=== PATIENT | male | born 1965 | race Caucasian/White ===

== ENCOUNTER 2020-06-23 15:16 | Emergency (ER) | payer BC, SELFPAY ==
[2020-06-23 15:24] VITALS: BP 112/89; PULSE 96; RESP 16; TEMP 36.4; O2SAT 98
--- NOTE | 2020-06-23 15:36 | ED.URI ---
HPI - URI/Sore Throat General Chief Complaint: Upper Respiratory Infection Stated Complaint: Sore Throat Time Seen by Provider: 06/23/20 15:30 Source: patient Mode of arrival: ambulatory Limitations: no limitations History of Present Illness HPI Narrative: Tono Calderon is a 54 yo male with a PMH of high cholesterol, diabetic, who comes to express care with c/o sore throat that is worsening sore throat x 1-2 days. Thought he saw white pockets on throat to day while at work. Pt is a former smoker, casual drinker. Diabetes runs high but relatively under control, sees pcp regularly Related Data Home Medications Medication Instructions Recorded Confirmed atorvastatin [Lipitor] 20 mg PO DAILY 06/23/20 06/23/20 dapagliflozin [Farxiga] 10 mg PO DAILY 06/23/20 06/23/20 exenatide microspheres [Bydureon] 2 mg SUBCUT WEEKLY 06/23/20 06/23/20 insulin detemir U-100 [Levemir unit SUBCUT 06/23/20 FlexTouch U-100 Insuln] lisinopril [Zestril] 2.5 mg PO DAILY 06/23/20 06/23/20 metformin [Glucophage] 1,000 mg PO BID 06/23/20 06/23/20 Allergies Allergy/AdvReac Type Severity Reaction Status Date / Time just for men Allergy Mild Uncoded 06/23/20 15:32 Review of Systems Review of Systems: Narrative: CONSTITUTIONAL: Denies fever, chills, sweats. EYES: Denies visual changes, redness, discharge. ENT: Denies rhinorrhea, congestion, has sore throat w tonsillar swelling, otalgia. CARDIOVASCULAR: Denies chest pain, palpitations, edema. RESPIRATORY: Denies dyspnea, wheezing, cough GASTROINTESTINAL: Denies abdominal pain, nausea, vomiting, diarrhea. GENITOURINARY: Denies dysuria, hematuria, abnormal discharge SKIN: Denies rash or itching. NEUROLOGIC: Denies numbness, or focal weakness. PSYCHIATRIC: Denies anxiety or depression. [facility] Past Medical History Medical History Diabetes High cholesterol Family History Family History Other Breast cancer Diabetes mellitus Social History Social History (Updated 06/23/20 @ 15:41 by Jessie Anguiano CNP) Smoking status: Former smoker Alcohol intake: former Gender identity (if verbalized by the patient): Male Comments At time of signature, I agree with nursing past medical, surgical, social and family history. There is no relevant family history pertinent to the presenting complaint. Exam Narrative: Exam Narrative: GENERAL: This is a well-nourished, well-developed patient, in mild distress. HEAD: normocephalic, atraumatic. EYES: Sclera clear/white. Vision is grossly intact. EARS: External ears normal. Hearing grossly intact. NOSE: External nose normal without nasal discharge, nares without redness, no rhinorrhea. THROAT: Mucous membranes moist, posterior pharynx erythema with tonsillar swelling, right greater than left NECK: Neck supple, non-tender CARDIOVASCULAR: Regular rate and rhythm without murmurs, gallops, or rubs. RESPIRATORY: Clear to auscultation. Breath sounds equal bilaterally. No wheezes, rales, or rhonchi. GASTROINTESTINAL: Abdomen soft, SKIN: warm, intact with no suspicious lesions or rash, good texture and turgor. NEURO: awake, alert, and oriented to person, place and time. There were no obvious focal neurologic abnormalities. Steady gait EXTREMITIES: Normal range of motion. BACK: Nontender without deformity Course Course Emergency Course: Patient came to express care with complaints of sore throat that is worsening over the last day Strep test negative Started on lower dose steroids x4 days plus viscous lidocaine, Zyrtec. Patient should be aware that steroids will increase blood sugar temporarily Vital Signs Vital signs: Vital Signs Temperature 97.6 F 06/23/20 15:24 Pulse Rate 96 06/23/20 15:24 Respiratory Rate 16 06/23/20 15:24 Blood Pressure 112/89 06/23/20 15:24 Pulse Oximetry 98 06/23/20 15:24 Temperature 97.6 F 11
== END 2020-06-23 15:50 | disposition home or self-care (01) ==
PROVIDERS: Emergency Provider Nurse Practitioner; PCP Internal Medicine
DX: J02.9 Acute pharyngitis, unspecified (principal); Z87.891 Personal history of nicotine dependence; E11.9 Type 2 diabetes mellitus without complications; E78.00 Pure hypercholesterolemia, unspecified
CPT/HCPCS: 87081; 87880; 99213; G0463

== ENCOUNTER 2021-09-21 17:09 | Observation (INO) | payer BC, SELFPAY ==
[2021-09-21] VITALS (19 sets, daily range): BP systolic 107–145; BP diastolic 61–86; PULSE 72–96; RESP 11–23; TEMP 36–37.3; O2SAT 97–99; BMI 36.6; BMI 37.0
--- NOTE | ~2021-09-21 | US_ITS ---
EXAMINATION: US right upper quadrant DATE: 09/22/2021 09:41 INDICATION: Epigastric pain. Elevated lipase. TECHNIQUE: Multiple grayscale and Doppler ultrasound images of the abdomen were obtained. COMPARISON: 04/08/18 FINDINGS: The visualized portion of the head and proximal body of the pancreas are normal. The more distal body and tail are obscured. Liver has normal contour, with a smooth surface. There is increased parenchym al echogenicity and coarsened echotexture consistent with diffuse hepatic steatosis with geographic h ypoechoic region of focal sparing in the posterior left hepatic lobe. No other liver lesion identifie d. No intrahepatic biliary duct dilation suspected. Portal venous flow was seen in the hepatopetal, normal direction and has normal Doppler waveform. Visualized proximal inferior vena cava is normal. V isualized portion of the right kidney demonstrates normal echogenicity and contour with no hydronephr osis. The gallbladder is normal in appearance. There is no cholelithiasis. The common bile duct lisa ures 5 mm, which is normal. Sonographic Melo sign was reported as negative by the retail support manager. IMPRESSION: 1. Diffuse hepatic steatosis with focal sparing along the posterior left hepatic lobe. Reviewed, dictated and finalized at location A. [employer] SAL[employer] SPECIALIST IMPRESSION: 1. Diffuse hepatic steatosis with focal sparing along the posterior left hepati c lobe.
--- NOTE | ~2021-09-21 | XR_ITS ---
EXAMINATION: XR chest 1V portable INDICATION: Chest pain TECHNIQUE: Portable AP chest at 1732 hours COMPARISON: None available FINDINGS: Cardiomegaly is noted. There is a mild diffuse interstitial pattern. No pleural effusion or pneumothorax is identified. IMPRESSION: 1. Cardiomegaly with possible mild pulmonary edema. Reviewed, dictated and finalized at location F. [employer]
--- NOTE | 2021-09-21 17:11 | ECG_ITS ---
Measurements Intervals Maria Stein Rate: 98 P: 52 CA: 140 QRS: -11 QRSD: 102 T: 37 QT: 334 QTc: 427 Interpretive Statements SINUS RHYTHM DELAYED PRECORDIAL R/S TRANSITION BORDERLINE ECG Electronically Signed On 09-21-2021 18:28:26 CLOTHING SUPERVISOR by Garret Westfall D.O.
--- NOTE | 2021-09-21 17:21 | ED.CHESTPAIN ---
HPI - Chest Pain General Chief Complaint: Chest Pain Stated Complaint: Chest Pain with Exertion Time Seen by Provider: 09/21/21 17:11 Related Data Home Medications Medication Instructions Recorded Confirmed atorvastatin [Lipitor] 20 mg PO DAILY 06/23/20 06/23/20 dapagliflozin [Farxiga] 10 mg PO DAILY 06/23/20 06/23/20 exenatide microspheres [Bydureon] 2 mg SUBCUT WEEKLY 06/23/20 06/23/20 insulin detemir U-100 [Levemir unit SUBCUT 06/23/20 FlexTouch U-100 Insuln] lisinopril [Zestril] 2.5 mg PO DAILY 06/23/20 06/23/20 metformin [Glucophage] 1,000 mg PO BID 06/23/20 06/23/20 Allergies Allergy/AdvReac Type Severity Reaction Status Date / Time No Known Allergies Allergy Verified 09/21/21 17:18 [facility] Past Medical History Medical History Diabetes High cholesterol Family History Family History Other Breast cancer Diabetes mellitus Social History Social History (Updated 06/23/20 @ 15:41 by Jessie Anguiano CNP) Smoking status: Former smoker Alcohol intake: former Gender identity (if verbalized by the patient): Male Course Vital Signs Vital signs: Vital Signs Temperature 99.1 F 09/21/21 17:13 Pulse Rate 94 09/21/21 17:13 Respiratory Rate 18 09/21/21 17:13 Blood Pressure 145/86 H 09/21/21 17:13 Pulse Oximetry 98 09/21/21 17:13 Temperature 99.1 F 09/21/21 17:13 Pulse Rate 94 09/21/21 17:13 Respiratory Rate 18 09/21/21 17:13 Blood Pressure 145/86 H 09/21/21 17:13 Pulse Oximetry 98 09/21/21 17:13 MDM - Chest Pain ECG Data EKG #1: Interpretation: Sinus rhythm 98, MA is normal, axis normal, QTC is normal, ST segments normal Discharge Plan Discharge Prescriptions: No Action atorvastatin [Lipitor] 20 mg Tablet 20 mg PO DAILY RF: 0 metformin [Glucophage] 1,000 mg Tablet 1,000 mg PO BID RF: 0 lisinopril [Zestril] 2.5 mg Tablet 2.5 mg PO DAILY RF: 0 Levemir FlexTouch U-100 Insuln 100 unit/mL (3 mL) insulin pen SUBCUT RF: 0 Farxiga 10 mg Tablet 10 mg PO DAILY RF: 0 Bydureon 2 mg/0.65 mL Pen Injector 2 mg SUBCUT WEEKLY RF: 0 prednisone 20 mg tablet 40 mg PO DAILY 5 Days Qty: 10 RF: 0 cetirizine [Zyrtec] 10 mg tablet 10 mg PO DAILY Qty: 30 RF: 0 Lidocaine Viscous 2 % solution 1 applic mucous membrane TID PRN (Reason: pain) Qty: 100 RF: 0
--- NOTE | 2021-09-21 17:29 | ED.CHESTPAIN ---
HPI - Chest Pain General Chief Complaint: Chest Pain Stated Complaint: Chest Pain with Exertion Time Seen by Provider: 09/21/21 17:11 Source: RN notes reviewed History of Present Illness HPI narrative: Patient presents emergency department from home for chest pain. Patient states for the past several months he has been having lower midsternal chest pain that is described as a burning he states that this occurs when he is walking a long distance like to his locker at work and resolves when he rests he states that over the past week it has been occurring almost every time he has been doing any activity and resolves with rest he states today for the first time he had an episode while he was laying down getting ready to go to sleep he denies any fevers or chills shortness of breath abdominal pain nausea or vomiting diarrhea or any other symptoms. Patient states both mother and father with history of bypass surgery Related Data Home Medications Medication Instructions Recorded Confirmed atorvastatin [Lipitor] 20 mg PO DAILY 06/23/20 09/21/21 dapagliflozin [Farxiga] 10 mg PO DAILY 06/23/20 09/21/21 exenatide microspheres [Bydureon] 2 mg SUBCUT WEEKLY 06/23/20 06/23/20 insulin detemir U-100 [Levemir 40 unit SUBCUT DAILY 06/23/20 09/21/21 FlexTouch U-100 Insuln] lisinopril [Zestril] 2.5 mg PO DAILY 06/23/20 09/21/21 metformin [Glucophage] 1,000 mg PO BID 06/23/20 09/21/21 Allergies Allergy/AdvReac Type Severity Reaction Status Date / Time No Known Allergies Allergy Verified 09/21/21 17:18 Review of Systems Review of Systems: Gen.: Denies fevers or chills ENT: Denies congestion Respiratory: Denies shortness of breath or cough CV: See HPI GI: Denies abdominal pain nausea, emesis or diarrhea Musculoskeletal: Denies back pain or muscle pain Neuro: Denies numbness, tingling, weakness or focal weakness Skin: Denies rash Except as documented, all other systems reviewed and negative [facility] Past Medical History Medical History (Updated 09/21/21 @ 18:52 by Silvia Landin APRN) Diabetes High cholesterol Surgical History Surgical History (Updated 09/21/21 @ 18:49 by Silvia Landin APRN) History of appendectomy History of hip replacement, total Right total hip replacement History of shoulder surgery Left shoulder Family History Family History (Updated 09/21/21 @ 18:49 by Silvia Landin APRN) Mother Heart disease, Onset Age: 54 Father Heart disease, Onset Age: 72 Other Breast cancer Diabetes mellitus Social History Social History (Updated 09/21/21 @ 18:50 by Silvia Landin APRN) Smoking packs per day: 1.5 Smoking cigarettes per day: 30.0 Years smoked: 34 Smoking pack-years: 51.00 Smoking status: Former smoker Tobacco type: e-cigarettes/vaping Alcohol intake: former Gender identity (if verbalized by the patient): Male Exam Narrative: APPEARANCE: No acute distress, nontoxic, resting in bed EYES: EOMI HEENT: Normocephalic, atraumatic, OMM RESPIRATORY: No respiratory distress Clear to auscultation bilaterally with no rhonchi wheezing or rales. CARDIOVASCULAR: Regular rate and rhythm without murmurs rubs or gallops. ABDOMINAL: Soft, nontender, nondistended, no rebound or guarding MUSCULOSKELETAl: Moves all extremities. No clubbing, cyanosis or edema. NEURO: Awake and alert. Following commands, speech normal, no focal deficits SKIN:: Warm, dry. No rashes lesions or abrasions PSYCHIATRIC: Normal affect/mood, Course Course Emergency Course: Discussed with Dr. Rodriguez presentation work-up recommends patient receive single dose of Lovenox and NPO after midnight Discussed with SAMMY Vega for Dr. Munoz presentation work-up agrees with admission Discussed with patient and family results of workup and diagnosis. Discussed need for admission. Patient and family understand and agree to current treatment plan Vital Signs Vital signs: Vital Signs
[2021-09-21 17:35] LABS: Basophils Percent Auto 0.7 % (0.2-1.2); Eosinophils Absolute Auto 0.3 K/mm3 (0-0.3); Eosinophils Percent Auto 4.9 % (0-4.4); Hematocrit 47.2 % (42.0-52.0); Hemoglobin 15.6 g/dL (14.0-18.0); Immature Granulocyte Absolute 0.02 K/mm3 (0.00-0.031); Immature Granulocyte Percent A 0.3 % (0-0.5); Lymphocytes Absolute Auto 1.88 K/mm3 (0.9-3.2); Mean Corpuscular HGB Conc 33.1 g/dl (32-36); Mean Corpuscular Hemoglobin 27.2 pg (26-34); Mean Corpuscular Volume 82.4 fl (80-100); Mean Platelet Volume 9.2 fl (7.4-10.4); Monocytes Absolute Auto 0.6 K/mm3 (0.1-0.6); Monocytes Percent Auto 9.7 % (2.6-8.5); Neutrophils Absolute Auto 3.2 K/mm3 (1.3-6.7); Neutrophils Percent Auto 53.4 % (45.5-73.1); Platelet Count Result 215 k/mm3 (150-375); Red Blood Count 5.73 M/mm3 (4.6-6.20); Red Cell Distribution Width 14.9 % (11.5-14.5); White Blood Count 6.1 K/mm3 (4.5-10.0)
[2021-09-21 17:41] LABS: INR 0.9; Prothrombin Time 11.7 Seconds (11.1-14.7)
[2021-09-21 17:42] LABS: Partial Thromboplastin Time 29.2 SECONDS (22.3-36.8)
[2021-09-21 17:49] LABS: Alanine Aminotransferase 40 U/L (4-50); Albumin Level 4.4 g/dL (3.5-5.1); Alkaline Phosphatase 59 U/L (38-126); Anion Gap 8 mmol/L (8-16); Aspartate Amino Transferase 30 U/L (17-59); Bilirubin,Total 0.5 mg/dL (0.2-1.3); Blood Urea Nitrogen 20 mg/dL (9-20); Calcium 9.7 mg/dL (8.4-10.2); Carbon Dioxide 25 mmol/L (22-30); Chloride 103 mmol/L (98-107); Estimated CRCL calculation 127 ml/min; Estimated Glomerular Filt Rate > 60; Glucose 224 mg/dL (65-110); Lipase 480 U/L (23-300); Potassium 4.2 mmol/L (3.4-5.0); Sodium 136 mmol/L (137-145)
[2021-09-21] MEDS: ASPIRIN 81 MG CHEWABLE TABLET 324 MG PO (17:56)
[2021-09-21 18:00] LABS: Troponin I < 0.012 ng/mL (0.000-0.034)
--- NOTE | 2021-09-21 18:38 | PM.IMHP ---
H&P: HPI History of Present Illness Date/Time: Patient was placed observation status for expected length of stay less than 23 hours for management, will plan to re-evaluate tomorrow for improvement. 09/21/21 18:38 Chief Complaint: Chest pain Narrative: Mr. Calderon is a 56-year-old gentleman who presented emergency room with complaints of chest discomfort. Patient has a known history of diabetes mellitus, dyslipidemia, and tobacco abuse. Patient states he does not have a history of hypertension. Patient states over the last few months he has been having a burning sensation in his chest that happens when he is walking quite a bit. Patient denies any associated shortness of breath, nausea, vomiting, or palpitations. Patient states the pain is close to his epigastric area and does not radiate anywhere when he does have it. Patient states he decided come to emergency room because the pain started happening more often today it happened while he was resting. Patient states that at times he feels like drinking water may have helped, and that eating made the pain worse. Patient states that his blood glucose levels have been fairly well controlled and that he is on multiple medications for his diabetes mellitus. Patient states he has been on a statin for many years. At this point time patient is chest pain-free. Review of Systems Review of Systems: A 12 point review of systems was completed with patient all pertinent positive and negative per HPI the remainder are unremarkable. [facility] Past Medical History Medical History (Updated 09/21/21 @ 18:52 by Silvia Landin APRN) Diabetes High cholesterol Surgical History Surgical History (Updated 09/21/21 @ 18:49 by Silvia Landin APRN) History of appendectomy History of hip replacement, total Right total hip replacement History of shoulder surgery Left shoulder Family History Family History (Updated 09/21/21 @ 18:49 by Silvia Landin APRN) Mother Heart disease, Onset Age: 54 Father Heart disease, Onset Age: 72 Other Breast cancer Diabetes mellitus Social History Social History (Updated 09/21/21 @ 18:50 by Silvia Landin APRN) Smoking packs per day: 1.5 Smoking cigarettes per day: 30.0 Years smoked: 34 Smoking pack-years: 51.00 Smoking status: Former smoker Tobacco type: e-cigarettes/vaping Alcohol intake: former Gender identity (if verbalized by the patient): Male Meds Home Medications and Allergies Home Medications Medication Instructions Recorded Confirmed Type atorvastatin [Lipitor] 20 mg PO DAILY 06/23/20 09/21/21 History dapagliflozin [Farxiga] 10 mg PO DAILY 06/23/20 09/21/21 History exenatide microspheres [Bydureon] 2 mg SUBCUT WEEKLY 06/23/20 06/23/20 History insulin detemir U-100 [Levemir 40 unit SUBCUT DAILY 06/23/20 09/21/21 History FlexTouch U-100 Insuln] lisinopril [Zestril] 2.5 mg PO DAILY 06/23/20 09/21/21 History metformin [Glucophage] 1,000 mg PO BID 06/23/20 09/21/21 History Allergies Allergy/AdvReac Type Severity Reaction Status Date / Time No Known Allergies Allergy Verified 09/21/21 17:18 Vital Signs Vital Signs - 24 hr 09/21/21 17:13 09/21/21 18:03 09/21/21 18:06 Temperature 37.3 C Pulse Rate 94 92 92 Respiratory Rate 18 18 Blood Pressure 145/86 H 113/74 Pulse Oximetry 98 99 Exam Narrative: Constitutional: Patient is well-nourished in no acute distress HEENT: Moist mucous membranes. No scleral icterus. No lymphadenopathy. Neck: No carotid bruits noted no JVD noted Lungs: Lung sounds are clear to auscultation bilaterally. No accessory muscle use. No rhonchi, rales, or wheezes noted. Cardiovascular: Apical pulse is regular rate and rhythm. S1-S2 noted, no S3 or S4 noted. No gallops, murmurs, or rubs noted. Abdomen: Soft, round, and nontender. No palpable masses. Extremities: No edema. Nontender. Skin: No rashes or lesions. Warm a
[2021-09-21 19:13] LABS: Hemoglobin A1C 7.5 % (<5.7)
[2021-09-21] MEDS: ENOXAPARIN 120 MG/0.8 ML SYRINGE 115 MG SUB-Q (19:19)
[2021-09-21 19:30] LABS: NT Pro B Type Natriuretic Pept 24 pg/mL (5-100)
--- NOTE | 2021-09-21 20:49 | ADMGEN ---
This patient, Tono Calderon Maryse, was admitted to IMU Room 212-01 at 2030. Patient/family oriented to hospital policies and general routines including ID bracelet, bed and alarms, visiting hours, pain management, procedures, bathroom and other care routines, personal items, smoking policy, room service/diet, and visiting hours. Information on how to activate the Rapid Response Team has been discussed. Patient/Family are encouraged to report perceived risks to care and to ask questions if they do not understand what they are told or what they should do.
[2021-09-21 20:53] LABS: Glucose Point of Care 259 mg/dl (65-105)
[2021-09-21 21:13] LABS: Troponin I < 0.012 ng/mL (0.000-0.034)
[2021-09-21 23:29] LABS: Troponin I < 0.012 ng/mL (0.000-0.034)
[2021-09-22] VITALS (20 sets, daily range): BP systolic 107–129; BP diastolic 64–87; PULSE 70–93; RESP 11–18; TEMP 36.2–36.6; O2SAT 95–99
[2021-09-22 04:36] LABS: Basophils Percent Auto 0.5 % (0.2-1.2); Eosinophils Absolute Auto 0.3 K/mm3 (0-0.3); Eosinophils Percent Auto 5.8 % (0-4.4); Hematocrit 45.4 % (42.0-52.0); Hemoglobin 14.8 g/dL (14.0-18.0); Immature Granulocyte Absolute 0.01 K/mm3 (0.00-0.031); Immature Granulocyte Percent A 0.2 % (0-0.5); Lymphocytes Absolute Auto 1.82 K/mm3 (0.9-3.2); Lymphocytes Percent Auto 32.7 % (18.3-44.2); Mean Corpuscular HGB Conc 32.6 g/dl (32-36); Mean Corpuscular Volume 82.7 fl (80-100); Mean Platelet Volume 9.3 fl (7.4-10.4); Monocytes Absolute Auto 0.6 K/mm3 (0.1-0.6); Monocytes Percent Auto 10.4 % (2.6-8.5); Neutrophils Absolute Auto 2.8 K/mm3 (1.3-6.7); Neutrophils Percent Auto 50.4 % (45.5-73.1); Platelet Count Result 197 k/mm3 (150-375); Red Blood Count 5.49 M/mm3 (4.6-6.20); Red Cell Distribution Width 15.1 % (11.5-14.5); White Blood Count 5.6 K/mm3 (4.5-10.0)
[2021-09-22 04:57] LABS: Carbon Dioxide 24 mmol/L (22-30); Chloride 106 mmol/L (98-107); Potassium 4.6 mmol/L (3.4-5.0); Sodium 135 mmol/L (137-145)
[2021-09-22 04:58] LABS: Alanine Aminotransferase 36 U/L (4-50); Albumin Level 3.8 g/dL (3.5-5.1); Alkaline Phosphatase 52 U/L (38-126); Anion Gap 5 mmol/L (8-16); Aspartate Amino Transferase 29 U/L (17-59); Bilirubin,Total 0.5 mg/dL (0.2-1.3); Blood Urea Nitrogen 18 mg/dL (9-20); Calcium 8.8 mg/dL (8.4-10.2); Estimated CRCL calculation 148 ml/min; Estimated Glomerular Filt Rate > 60; Glucose 153 mg/dL (65-110)
[2021-09-22 08:37] LABS: Lipase 311 U/L (23-300)
[2021-09-22] MEDS: ATORVASTATIN 20 MG TABLET PO (08:42)
[2021-09-22] MEDS: EMPAGLIFLOZIN 25 MG TABLET PO (08:42)
[2021-09-22] MEDS: lisinopriL 2.5 MG TABLET PO (08:42)
[2021-09-22] MEDS: ENOXAPARIN 40 MG/0.4 ML SYRINGE SUB-Q (08:42)
[2021-09-22 08:49] LABS: Glucose Point of Care 166 mg/dl (65-105)
--- NOTE | 2021-09-22 10:05 | PM.CNCAR ---
Assessment and Plan Additional Plan 56-year-old gentleman with diabetes dyslipidemia and previous smoking. He has a 2-3 month history of typical exertional anginal symptoms. Given this I am going to recommend proceeding directly with cardiac catheterization. He understands this and is agreeable. Will proceed with this this afternoon. Anoop Jackson MD [facility] History of Present Illness History of Present Illness Consult date/time: 09/22/21 10:05 Consult reason: chest pain Reason For Visit: Chest Pain Narrative: This is a 56-year-old patient I am seeing at the request of the hospitalist this morning because of a history of chest pain concerning regarding coronary artery disease. The patient is not known to have any cardiac problems prior to this. He says that he has been experiencing symptoms of chest discomfort for about 2-3 months. The symptoms initially were fairly mild and have worsened in the last 2 weeks or so in the sense they are occurring more frequently and appeared to be more intense when they do occur. He is reporting a sense of her substernal chest burning that occurs when he walks a distance. He started to notice this primarily with walking from his parking lot into his place of employment where he works at a [employer]. He states that this walk is about quarter of a mi or so. In recent weeks couple of weeks it is occurring with shorter distances and the burning discomfort tends to be more severe. Within a couple of minutes of rest it tends to resolve he does not have any other symptoms such as shortness of breath diaphoresis nausea or vomiting. This symptom of burning does not radiate to any other location in the body. Because it became more problematic this week he finally came to the emergency room last evening where he was evaluated and admitted. His electrocardiogram looks benign. His troponin levels are negative. He was hospitalized given some aspirin and a dose of Lovenox last night and went seeing him in consultation this morning. He does have a history of non insulin-dependent diabetes for about 15 years and also history of dyslipidemia which is being managed by his PCP. He is a previous smoker having smoked cigarettes until about 2013 and quit at that time. He has done vaping intermittently since then. Review of Systems Constitutional: Constitutional: Reports no additional constitutional complaints Eyes: Eyes: Reports no additional eye complaints ENT: Reports system reviewed and no additional complaints, except as documented Cardiovascular: Cardiovascular: Reports as per HPI Respiratory: Respiratory: Reports no additional respiratory complaints Gastrointestinal: Gastrointestinal: Reports no additional gastrointestinal complaints Musculoskeletal: Musculoskeletal: Reports no additional musculoskeletal complaints Integumentary/Breasts: Skin/Breast: Reports system reviewed and no additional complaints, except as docu Neurologic: Reports system reviewed and no additional complaints, except as documented Endocrine: Endocrine: Reports no additional endocrine complaints Hematologic/Lymphatic: Hematologic/Lymphatic: Reports no additional hematologic/lymphatic complaints Allergic/Immunologic: Allergic/Immunologic: Reports no additional allergic/immunologic complaints [facility] Past Medical History Medical History (Updated 09/21/21 @ 18:52 by Silvia Landin APRN) Diabetes High cholesterol Surgical History Surgical History (Updated 09/21/21 @ 18:49 by Silvia Landin APRN) History of appendectomy History of hip replacement, total Right total hip replacement History of shoulder surgery Left shoulder Family History Family History (Updated 09/21/21 @ 18:49 by Silvia Landin APRN) Mother Heart disease, Onset Age: 54 Father Heart disease, Onset Age: 72 Other Breast cancer Diabetes mellitus Social History Social History (Updated 09/21/21 @ 18
--- NOTE | 2021-09-22 10:35 | PM.IMPN ---
Progress Note: A&P Assessment and Plan (1) Chest pain: Code(s): R07.9 - Chest pain, unspecified Status: Acute Assessment and Plan: Patient with complaints of chest pain. Trop negative x 3. EKG shows mild delayed R wave progression. Cardiology was consulted and options discussed. Patient has risk factors of HLD, DM, family hx and hx of tobacco use (quit in 2013 but he is vaping now). Plan for hear catheterization for later today. Continue ASA. Appreciate Cardiology input. (2) Diabetes: Code(s): E11.9 - Type 2 diabetes mellitus without complications Status: Chronic Assessment and Plan: A1c 7.5. The patient's blood glucose was reviewed on 09/22/21 Glucose elevated at times. Continue AccuCheks covering with sliding scale. Hypoglycemia protocol available as needed. Continue current medications. (3) High cholesterol: Code(s): E78.00 - Pure hypercholesterolemia, unspecified Status: Acute Assessment and Plan: LFTs normal. Lipase slightly elevated on admission but better today. Check lipid panel. Continue Lipitor. (4) Hepatic steatosis: Code(s): K76.0 - Fatty (change of) liver, not elsewhere classified Status: Acute Assessment and Plan: Right UQ showing diffuse hepatic steatosis with focal sparing along the posterior left hepatic lobe. GB appears normal. healthy lifestyle choices discussed. (5) DVT prophylaxis: Code(s): Z29.9 - Encounter for prophylactic measures, unspecified Status: Acute Assessment and Plan: Lovenox (on hold) Subjective Date/time seen: 09/22/21 10:35 Interval history: 56yo male with DM, HLD and hx of tobacco use here for chest pain. No further chest pain. He feels better today. hx reviewed. He described the pain as burning. Feels comfortable proceeding to [facility] today. Exam Narrative: AF 97.5 129/75 75 18 99% ra Constitutional: NARD Lungs: CTA bilaterally, nml RR CV: RRR S1/S2. Tele showing no alarms Abd: Soft, NT/ND, +BS Ext: No edema. 2+ PT bilaterally Skin: Warm and dry. Neuro: No focal neurological deficits Psych: normal mood and affect. Objective Data Vital Signs Vital Signs: Vital Signs - 24 hr 09/21/21 17:13 09/21/21 17:34 09/21/21 17:45 Temperature 99.1 F Pulse Rate 94 96 95 Respiratory Rate 18 16 13 Blood Pressure 145/86 H Pulse Oximetry 98 97 97 09/21/21 17:46 09/21/21 18:00 09/21/21 18:01 Temperature Pulse Rate 93 93 93 Respiratory Rate 18 12 13 Blood Pressure 118/73 113/74 Pulse Oximetry 09/21/21 18:03 09/21/21 18:06 09/21/21 18:18 Temperature Pulse Rate 92 92 Respiratory Rate 18 13 Blood Pressure 113/74 Pulse Oximetry 99 09/21/21 18:30 09/21/21 18:45 09/21/21 19:00 Temperature Pulse Rate Respiratory Rate 11 L 11 L 17 Blood Pressure Pulse Oximetry 09/21/21 19:30 09/21/21 19:45 09/21/21 20:00 Temperature Pulse Rate 86 93 84 Respiratory Rate 19 18 23 H Blood Pressure Pulse Oximetry 09/21/21 20:15 09/21/21 20:20 09/21/21 22:00 Temperature 96.8 F L Pulse Rate 86 89 80 Respiratory Rate 12 16 Blood Pressure 127/69 Pulse Oximetry 98 09/21/21 23:43 09/22/21 00:00 09/22/21 02:00 Temperature 97.3 F L Pulse Rate 72 81 76 Respiratory Rate 15 Blood Pressure 107/61 Pulse Oximetry 97 09/22/21 04:00 09/22/21 06:00 09/22/21 08:00 Temperature 97.8 F 97.5 F L Pulse Rate 93 75 76 Respiratory Rate 15 18 Blood Pressure 112/68 129/75 Pulse Oximetry 96 99 09/22/21 10:00 Temperature Pulse Rate 75 Respiratory Rate Blood Pressure Pulse Oximetry Intake/Output Intake/Output: Intake & Output 09/19/21 09/20/21 09/21/21 09/22/21 23:59 23:59 23:59 23:59 Intake Total 300 Output Total 725 Balance -425 Meds/Results Medications: Active Medications Generic Name Dose Route Start Last Admin Trade Name Freq PRN Reason Stop Dose Admin A
[2021-09-22 12:24] LABS: Glucose Point of Care 129 mg/dl (65-105)
[2021-09-22 13:26] LABS: Cholesterol 152 mg/dL (0-200); HDL Direct 37 mg/dL; Triglycerides 176 mg/dL (<150)
[2021-09-22 13:39] LABS: LDL Cholesterol Direct 94 mg/dL
--- NOTE | 2021-09-22 13:39 | WPDMODSED ---
Moderate Sedation Note-Pt Data Patient Data Diagnosis: Recent onset of symptoms typical of exertional angina diabetes dyslipidemia Present Complaint: exertional chest pain Procedure to be performed/Plan: left heart catheterization Allergies Allergy/AdvReac Type Severity Reaction Status Date / Time No Known Allergies Allergy Verified 09/21/21 17:18 Home Medications Medication Instructions Recorded Confirmed Type atorvastatin [Lipitor] 20 mg PO DAILY 06/23/20 09/21/21 History dapagliflozin [Farxiga] 10 mg PO DAILY 06/23/20 09/21/21 History insulin detemir U-100 [Levemir 40 unit SUBCUT DAILY 06/23/20 09/21/21 History FlexTouch U-100 Insuln] lisinopril [Zestril] 2.5 mg PO DAILY 06/23/20 09/21/21 History metformin [Glucophage] 1,000 mg PO BID 06/23/20 09/21/21 History Current Medications: Active Medications Aspirin (Aspirin 81 Mg Enteric Tablet) 81 mg PO [facility] Atorvastatin Calcium (Atorvastatin 20 Mg Tablet) 20 mg PO DAILY [facility] Last Admin: 09/22/21 08:42 Dose: 20 mg Documented by: Dextrose (Dextrose 50% 25 Gm/50 Ml Syringe) 12.5 gm IV PUSH PRN PRN; Protocol PRN Reason: Hypoglycemia Empagliflozin (Empagliflozin 25 Mg Tablet) 25 mg PO DAILY [facility] Last Admin: 09/22/21 08:42 Dose: 25 mg Documented by: Glucagon (Glucagon For Inj 1 Mg Vial) 1 mg IM PRN PRN; Protocol PRN Reason: Hypoglycemia Glucose (Glucose Oral Gel 15 Gm Of Glucse In 37.5 Gm Tube) 15 gm PO PRN PRN; Protocol PRN Reason: Hypoglycemia Dextrose (Dextrose 5% 1,000 Ml) 1,000 mls @ 100 mls/hr IVPB PRN PRN; Protocol PRN Reason: Hypoglycemia Insulin Aspart (Insulin Aspart (*Bkc) 100 Units/Ml) 3 - 6 units SUB-Q TIDWM [facility]; Protocol Last Admin: 09/22/21 10:25 Dose: Not Given Documented by: Insulin Detemir (Insulin Detemir 100 Units/Ml) 40 units SUB-Q DAILY [facility] Last Admin: 09/22/21 10:26 Dose: Not Given Documented by: Lisinopril (Lisinopril 2.5 Mg Tablet) 2.5 mg PO DAILY [facility] Last Admin: 09/22/21 08:42 Dose: 2.5 mg Documented by: Sedation/Anesthesia: No previous sedation/anesthesia problems (including family history). [facility] Past Medical History Medical History (Updated 09/22/21 @ 10:51 by Alvin Bloom MD) Diabetes High cholesterol Surgical History Surgical History (Updated 09/21/21 @ 18:49 by Silvia Landin APRN) History of appendectomy History of hip replacement, total Right total hip replacement History of shoulder surgery Left shoulder Family History Family History (Updated 09/21/21 @ 18:49 by Silvia Landin APRN) Mother Heart disease, Onset Age: 54 Father Heart disease, Onset Age: 72 Other Breast cancer Diabetes mellitus Social History Social History (Updated 09/21/21 @ 18:50 by Silvia Landin APRN) Smoking packs per day: 0.5 Smoking cigarettes per day: 10.0 Years smoked: 8 Smoking pack-years: 4.00 Smoking status: Current every day smoker Tobacco type: cigarettes and e-cigarettes/vaping Second hand tobacco smoke exposure: No Alcohol intake: former Substance use type: does not use Gender identity (if verbalized by the patient): Male Spiritual care concerns: No Mod Sed Physical Exam Physical Exam Pre Procedural Exam: Normal: Neck, Throat, Airway, Lungs, Heart Size, Heart Rate, Heart Rhythm, Neuro Exam and Extremities and Variation: Appearance ( overweight white male no apparent distress) Hours since solid foods: 12 Hours since liquid intake: 12 Mallampati Classification: class II Internal Medicine - PN: Obj Da Vital Signs Vital Signs: Vital Signs - 24 hr 09/21/21 17:13 09/21/21 17:34 09/21/21 17:45 Temperature 37.3 C Pulse Rate 94 96 95 Respiratory Rate 18 16 13 Blood Pressure 145/86 H Pulse Oximetry 98 97 97 09/21/21 17:46 09/21/21 18:00 09/21/21 18:01 Temperature Pulse Rate 93 93 93 Respiratory Rate 18 12 13 Blood Pressure 118/73 113/74 Pulse Oximetry 09/21/21 18:03 09/21/21 18:06
--- NOTE | 2021-09-22 14:12 | P.PCNCC_ITS ---
Cardiac Cath Procedure Note Date of procedure:: 09/22/21 Performing physician:: Anoop Jackson MD Indication:: exertional angina Brief clinical history:: 56-year-old man without previous history of coronary disease presents with a 2 to three-month history of exertional angina recently becoming more problematic. Also has non insulin-dependent diabetes and dyslipidemia. Procedure Procedure performed:: Left ventriculogram coronary angiogram Sedation/Medication given:: fentanyl 50 mg Versed 2 mg case start time 1:42 p.m. case end time 2:05 p.m. sedation provided by Augustus Paris RN, trained observer Access site:: right femoral artery Estimated blood loss:: 20 cc Procedure note:: patient was brought to the cardiac catheterization lab in the postabsorptive state where the right femoral triangle was prepared and draped in the normal fashion. Anesthesia was given with 1% lidocaine infiltrated locally. Using the modified Seldinger technique a 5 Trinidadian sheath was placed into the right femoral artery. After this I used a 5 Trinidadian angled pigtail catheter to measure left-sided hemodynamics and to inject LV g in the ER AO projection. Following this the left coronary artery was engaged and injected using the 5 Trinidadian FL4 catheter. The 5 Trinidadian JR4 catheter was then used to inject the right coronary as well as the anomalous LAD. The cineangiograms were then were reviewed and the case was terminated. the patient was taken to the holding area for manual sheath removal. There were no procedural complications and no evidence of groin hematoma upon leaving the director of cath lab. Findings:: Hemodynamics: Central aortic pressure was 108 over 58 left ventricle 108/5 end-diastolic pressure 14 there is no gradient on pullback across the aortic valve. Left ventricle: The LV is normal in size all segments contract vigorously the global ejection fraction I would visually estimate to be 65%. The left main coronary artery is medium in caliber and gives rise to the circumflex artery. There is no antegrade filling seen into the LAD from the left main. The circumflex gives rise to a large marginal branch and smaller more distal branch. The trunk of the circumflex as modest luminal irregularities but no significant stenosis is seen. 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 The origin of the LAD is separate from the RCA origin. The vessel has a 95% stenosis about [address] to the course down the anterior wall. This is a fairly discrete lesion. The LAD distally is small in caliber but free of significant disease. The right coronary artery is a large caliber vessel and is dominant to the posterior circulation. The proximal portion of the RCA is mild to moderately calcified. There is an ostial 95-99% stenosis the remainder of the RCA angiographically is not disease. Conclusion:: 1. 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 Patient also has high-grade stenosis of the ostium of the dominant RCA as well. 2. Mild plaquing of the circumflex trunk no significant disease angiographically 3. vigorous left ventricular systolic function. Anoop Jackson MD FACC
[2021-09-22] MEDS: SODIUM CHLORIDE 0.9% IV 1,000 ML 125 ML IV CONT (15:30)
[2021-09-22 16:56] LABS: Glucose Point of Care 115 mg/dl (65-105)
[2021-09-22] MEDS: METOPROLOL SUCCINATE EXT REL 50 MG TABCR PO (18:29)
[2021-09-22 20:18] LABS: Glucose Point of Care 139 mg/dl (65-105)
[2021-09-23] VITALS: BP 101/63; PULSE 76; RESP 16; TEMP 36.2; O2SAT 97
[2021-09-23 01:23] VITALS: O2SAT 97
[2021-09-23 04:00] VITALS: BP 105/66; PULSE 66; RESP 18; TEMP 36.9; O2SAT 97
[2021-09-23 08:00] VITALS: BP 124/82; PULSE 77; PULSE 80; RESP 16; TEMP 36.6; O2SAT 97
[2021-09-23 08:19] LABS: Glucose Point of Care 183 mg/dl (65-105)
[2021-09-23 08:52] VITALS: PULSE 80
[2021-09-23] MEDS: ASPIRIN 81 MG ENTERIC TABLET PO (08:52)
[2021-09-23] MEDS: METOPROLOL SUCCINATE EXT REL 50 MG TABCR PO (08:52)
[2021-09-23] MEDS: lisinopriL 2.5 MG TABLET PO (08:52)
[2021-09-23] MEDS: ATORVASTATIN 20 MG TABLET PO (08:53)
[2021-09-23] MEDS: CLOPIDOGREL BISULFATE 75 MG TABLET PO (08:53)
[2021-09-23] MEDS: EMPAGLIFLOZIN 25 MG TABLET PO (08:53)
[2021-09-23] MEDS: INSULIN DETEMIR 100 UNITS/ML 40 UNITS SUB-Q (08:56)
--- NOTE | 2021-09-23 11:24 | PM.PNCARD ---
Progress Note: A&P Additional Plan 56-year-old man with critical 2 vessel coronary artery disease as detailed above. He is stable for discharge this morning. Medical therapy for this has been started. The plan is for him to undergo a coronary CTA early this next week at [facility] following which a revascularization strategy will be chosen. Anoop Jackson MD [facility] Subjective Date/time seen: Date of service: 09/23/21 11:24 Interval history: Follow-up visit in this 56-year-old man with: Critical 2 vessel coronary artery disease presenting yesterday with exertional angina for several months which is accelerated in the last couple of weeks. No evidence of acute coronary syndrome or NC. 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 Patient feels well this morning has been started on aspirin clopidogrel and beta-macarena. Will plan for discharge. He will be referred to [facility] for Advanced revascularization. He will require coronary CTA to be done to verify the course of the anomalous LAD. Following that interventional colleagues there we will determine either PCI strategy or consider surgical revascularization if the LAD takes a malignant course between the aorta and pulmonary artery. Exam HENMT: Mouth: Yes moist mucous membranes Eyes: Sclera: sclerae normal Neck: Neck: supple and no JVD Resp: Effort & Inspection: normal respiratory effort Auscultation: clear to auscultation bilaterally Cardio: Rate: regular rate Rhythm: regular rhythm Other: No murmur no gallop no rub GI: GI Palp: Yes Soft to palpation Auscultation: normal bowel sounds Skin: General skin exam: normal color Neuro: Cognition (Neuro): normal cognition Extrem: General: normal to inspection Objective Data Vital Signs Vital Signs: Vital Signs - 24 hr 09/22/21 12:00 09/22/21 14:33 09/22/21 14:43 Temperature 36.6 C Pulse Rate 84 84 77 Pulse Rate [Right Pedal (Dorsalis Pedis) Palpation] Respiratory Rate 12 15 12 Blood Pressure 122/75 116/87 109/74 Pulse Oximetry 98 97 97 09/22/21 14:56 09/22/21 15:00 09/22/21 15:15 Temperature Pulse Rate 79 83 77 Pulse Rate [Right Pedal (Dorsalis Pedis) Palpation] 83 77 Respiratory Rate 17 11 L 12 Blood Pressure 110/80 122/87 Pulse Oximetry 97 98 98 09/22/21 15:30 09/22/21 15:45 09/22/21 16:00 Temperature 36.2 C L Pulse Rate 73 77 77 Pulse Rate [Right Pedal (Dorsalis Pedis) Palpation] 73 73 81 Respiratory Rate 12 12 16 Blood Pressure 128/83 123/72 119/80 Pulse Oximetry 98 98 98 09/22/21 16:30 09/22/21 17:00 09/22/21 18:00 Temperature 36.5 C 36.6 C Pulse Rate 70 79 80 Pulse Rate [Right Pedal (Dorsalis Pedis) Palpation] Respiratory Rate 14 16 14 Blood Pressure 107/69 124/69 111/66 Pulse Oximetry 95 98 98 09/22/21 18:29 09/22/21 19:00 09/23/21 00:00 Temperature 36.6 C 36.2 C L Pulse Rate 82 79 76 Pulse Rate [Right Pedal (Dorsalis Pedis) Palpation] Respiratory Rate 16 16 Blood Pressure 115/64 101/63 Pulse Oximetry 98 97 09/23/21 01:23 09/23/21 04:00 09/23/21 08:00 Temperature 36.9 C 36.6 C Pulse Rate 66 80 Pulse Rate [Right Pedal (Dorsalis Pedis) Palpation] Respiratory Rate 18 16 Blood Pressure 105/66 124/82 Pulse Oximetry 97 97 97 09/23/21 08:52 Temperature Pulse Rate 80 Pulse Rate [Right Pedal (Dorsalis Pedis) Palpation] Respiratory Rate Blood Pressure Pulse Oximetry Intake/Output Intake/Output: Intake & Output 09/20/21 09/21/21 09/22/21 09/23/21 23:59 23:59 23:59 23:59 Intake Total 600 1620 Output Total 2125 0255 Balance -1175 345 Meds/Results Medications: Active Medications Generic Name Dose Route Start Last Admin Trade Name Holley PRN Reason Stop Dose Admin Aspirin 81 mg 09/23/21 09:00 09/23/21 08:52 Aspirin 81 Mg Enteric Tablet PO 81 mg QAM [facility] Administra
[2021-09-23 12:00] VITALS: BP 127/77; PULSE 77; RESP 18; TEMP 36.8; O2SAT 98
[2021-09-23 12:34] LABS: Glucose Point of Care 188 mg/dl (65-105)
--- NOTE | 2021-09-23 13:21 | PM.DS ---
DS: Admitting Diagnosis Discharge Date 09/23/2021 Admitting Diagnosis Chest pain DS: Discharge Diagnosis Discharge Diagnosis (1) Chest pain: Code(s): R07.9 - Chest pain, unspecified Status: Acute Assessment and Plan: Patient with complaints of chest pain. Trop negative x 3. EKG shows mild delayed R wave progression. Cardiology was consulted. Patient has risk factors of HLD, DM, family hx and hx of tobacco use (quit in 2013 but he is vaping now). 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 As per cardiology, pt started on aspirin clopidogrel and beta-macarena. Pt can be discharged with referral to [facility] for Advanced revascularization. Pt require coronary CTA to be done to verify the course of the anomalous LAD. Following that interventional colleagues there we will determine either PCI strategy or consider surgical revascularization if the LAD takes a malignant course between the aorta and pulmonary artery. Pt advised not to smoke, and do better with his diabetes. (2) Diabetes: Code(s): E11.9 - Type 2 diabetes mellitus without complications Status: Chronic Assessment and Plan: A1c 7.5. Continue current medications. (3) High cholesterol: Code(s): E78.00 - Pure hypercholesterolemia, unspecified Status: Acute Assessment and Plan: LFTs normal. Continue Lipitor. (4) Hepatic steatosis: Code(s): K76.0 - Fatty (change of) liver, not elsewhere classified Status: Acute Assessment and Plan: Weight loss and exercise. DS: Summary Hospital Course Hospital Course: Patient with complaints of chest pain. Trop negative x 3. EKG shows mild delayed R wave progression. Cardiology was consulted. Patient has risk factors of HLD, DM, family hx and hx of tobacco use (quit in 2013 but he is vaping now). 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 As per cardiology, pt started on aspirin clopidogrel and beta-macarena. Pt can be discharged with referral to [facility] for Advanced revascularization. Pt require coronary CTA to be done to verify the course of the anomalous LAD. Following that interventional colleagues there we will determine either PCI strategy or consider surgical revascularization if the LAD takes a malignant course between the aorta and pulmonary artery. Pt advised not to smoke, and do better with his diabetes. And to follow next week with [facility] for Advanced revascularization. Time Spent with Patient Time attestation: Total time spent providing and/or coordinating discharge services:40 minutes Exam Narrative: Constitutional: Comfortable Lungs: Clear CV: RRR S1/S2. Abd: Soft, NT/ND, +BS Ext: No edema. 2+ PT bilaterally Skin: Warm and dry. Neuro: No focal neurological deficits Psych: normal mood and affect. DS: Data Data Completed and Pending Labs on day of discharge: Labs from last 24 hours 09/23/21 09/23/21 09/22/21 12:31 08:02 20:14 POC Capillary Glucose 188 H 183 H 139 H Triglycerides Cholesterol LDL Cholesterol Direct HDL Direct 09/22/21 09/22/21 16:46 04:03 POC Capillary Glucose 115 H Triglycerides 176 H Cholesterol 152 LDL Cholesterol Direct 94 HDL Direct 37 Discharge Plan Discharge Attending physician on discharge: Zuleyma Dickerson Consulting providers: Alex Rodriguez Discharging Clinician: Zuleyma Dickerson Anticipated Discharge Date/Time: 09/23/21 13:19 Patient Disposition: Home, Self-Care Activity: as tolerated Diet: heart healthy Discharge Instructions: Pt to have a coronary CTA early this next week at [facility] following which a revasc
--- NOTE | 2021-09-23 13:52 | PC.NURSE ---
Patient alert/oriented, MENDOZA, no c/o pain, ambulating w/o difficulty, no distress of any kind noted. Right FA 20g IV d/c, no bleeding/hematoma or trauma to site noted, gauze dressing applied for protection. Patient walked to front door w/son to private owned vehicle.
== END 2021-09-23 13:54 | disposition home or self-care (01) ==
LOC: ANHED 18:04 → ANHIMU 09-22 11:54
PROVIDERS: Internal Medicine; Nurse Practitioner Adult Health; Specialist; Admitting Provider Internal Medicine; Emergency Provider Emergency Medicine; PCP Internal Medicine; Visit Provider Family Medicine
PROC: 4A023N7 Measurement of Cardiac Sampling and Pressure, Left Heart, Percutaneous Approach (ICD-10-PCS; CPT 93452; principal; 2021-09-22 14:30)
DX: I25.10 Atherosclerotic heart disease of native coronary artery without angina pectoris (principal); R07.9 Chest pain, unspecified; E11.9 Type 2 diabetes mellitus without complications; E78.00 Pure hypercholesterolemia, unspecified; K76.0 Fatty (change of) liver, not elsewhere classified; Z79.84 Long term (current) use of oral hypoglycemic drugs; Z79.4 Long term (current) use of insulin; F17.290 Nicotine dependence, other tobacco product, uncomplicated
CPT/HCPCS: 36415; 71045; 76705; 80053; 80061; 82948; 83036; 83690; 83880; 84484; 85025; 85610; 85730; 93005; 93458; 96372; 99285; A9270; C1887; C1894; G0378; J1644; J1650; J1815; J2250; J3010; J7030; J7040

== ENCOUNTER 2021-12-27 09:45 | Outpatient (RCR) | payer BC, SELFPAY ==
[2021-12-05 09:05] VITALS: PULSE 98
== END 2022-01-22 11:34 | disposition home or self-care (01) ==
LOC: ANHCPREHAB 09:45
PROVIDERS: PCP Internal Medicine; Visit Provider Specialist
DX: Z95.1 Presence of aortocoronary bypass graft (principal)
CPT/HCPCS: 93798

== ENCOUNTER 2023-03-02 17:37 | Emergency (ER) | payer BC, SELFPAY ==
--- NOTE | ~2023-03-02 | CT_ITS ---
CT angiogram of the left lower extremity CLINICAL HISTORY: Hematoma TECHNIQUE: Following intravenous administration of 150 cc of Omnipaque 350 contrast, axial imaging of the left lower extremities were performed from the pelvis through the foot. Three-D reconstructed im ages were performed by the technologist on the workstation. Dose reduction technique was used on this scan by utilizing automated exposure control and iterative reconstruction technique. The dose-length product (DLP) was 1261.88 mGy-cm. Findings: There are atherosclerotic calcifications throughout the arterial structures of the left low er extremity. There are multifocal areas of mild to possibly moderate stenosis, especially throughout the SFA and popliteal artery, but no high-grade stenosis or complete occlusion identified. No aneury sm identified. Trifurcation is unremarkable. There is apparent hematoma or other fluid collection which appears to involve the proximal semimembra nosus muscle belly, with collection measuring up to approximately 4.6 x 2.0 x 10.0 cm in extent. Ther e is diffuse subcutaneous soft tissue edema. Remaining musculature appears essentially unremarkable. There is moderate degenerative change at the left hip joint. No fracture or dislocation seen. IMPRESSION: Probable hematoma versus other fluid collection within the proximal semimembranosus muscle belly, chris suring approximately 4.6 x 2.0 x 10.0 cm. Proximal hamstring tendons are poorly evaluated on CT scan. Consider MR imaging to more directly evaluate for injury to the hamstring tendons. MR would also bet ter delineate underlying hematoma/fluid collection. Extensive subcutaneous soft tissue edema, nonspecific. Moderate osteoarthritis of the left hip joint. Reviewed, dictated and finalized at [facility]. IMPRESSION: Probable hematoma versus other fluid collection within the proximal semimembran osus muscle belly, measuring approximately 4.6 x 2.0 x 10.0 cm. Proximal hamstr ing tendons are poorly evaluated on CT scan. Consider MR imaging to more direct ly evaluate for injury to the hamstring tendons. MR would also better delineate underlying hematoma/fluid collection. Extensive subcutaneous soft tissue edema, nonspecific. Moderate osteoarthritis of the left hip joint.
--- NOTE | ~2023-03-02 | XR_ITS ---
AP view of the pelvis and AP and lateral views of the left hip Clinical history: Pain Findings: No acute fracture or dislocation is seen. Osseous alignment is anatomic. There is moderate degenerative change of the left hip joint. Right hip arthroplasty in place. Soft tissues are unremark able. Impression: No acute fracture or dislocation seen. Moderate degenerative change of the left hip joint. Right hip arthroplasty in place. Reviewed, dictated and finalized at location . Impression: No acute fracture or dislocation seen. Moderate degenerative change of the left hip joint. Right hip arthroplasty in place.
[2023-03-02 17:42] VITALS: BP 130/68; PULSE 114; RESP 20; TEMP 36.3; O2SAT 98
--- NOTE | 2023-03-02 18:08 | ED.LOWEXIN ---
HPI - Extremity Injury (Lower) General Chief Complaint: Extremity Injury, Lower <Tiffani Greer PA-C - Last Filed: 03/02/23 20:50> Stated Complaint: L LEG INJURY 5 DAYS AGO <Tiffani Greer PA-C - Last Filed: 03/02/23 20:50> Time Seen by Provider: 03/02/23 17:51 <Tiffani Greer PA-C - Last Filed: 03/02/23 20:50> History of Present Illness HPI Narrative: 57-year-old male with a history of diabetes, hepatic steatosis and hyperlipidemia reports for evaluation for left lower extremity pain, edema and ecchymosis since a fall 5 days ago. Patient states 5 days ago he was working in his tomato garden, caught his tennis shoe and the tomato cage and fell to the ground. States he believes he fell on the right side of his body and rolled over to his back, but he did feel a pop in his left hip. Patient states he thinks his left hip may have dislocated and spontaneously reduced at the time of the fall. He states he was able to get up without difficulty, he did not hit his head or lose consciousness. A few days later he began developing ecchymosis to the medial aspect of the proximal left thigh and to the medial aspect of the left knee with associated edema. Reports has been taking naproxen in the morning with some relief. He denies fever, lower extremity weakness, paresthesias, back pain, other injury acquired during the fall. <Tiffani Greer PA-C - Last Filed: 03/02/23 20:50> Related Data Home Medications: Home Medications Medication Instructions Recorded Confirmed insulin detemir U-100 100 unit/mL 40 unit subcut DAILY 06/23/20 12/05/21 (3 mL) subcutaneous pen (Levemir FlexTouch U-100 Insulin) lisinopril 2.5 mg tablet (Zestril) 2.5 mg PO DAILY 06/23/20 12/05/21 metformin 1,000 mg tablet 1,000 mg PO BID 06/23/20 12/05/21 (Glucophage) atorvastatin 40 mg tablet 40 mg PO HS 12/05/21 12/05/21 dapagliflozin propanediol 10 mg 20 mg PO QAM 12/05/21 12/05/21 tablet (Farxiga) exenatide microspheres 2 mg/0.65 2 mg subcut WEEKLY 12/05/21 12/05/21 mL subcutaneous pen injector semaglutide 0.25 mg or 0.5 mg (2 0.25 mg subcut WEEKLY 12/18/21 12/18/21 mg/1.5 mL) subcutaneous pen injector (Ozempic) <Tiffani Greer PA-C - Last Filed: 03/02/23 20:50> Allergies/Adverse Reactions: Allergies Allergy/AdvReac Type Severity Reaction Status Date / Time No Known Allergies Allergy Verified 09/21/21 17:18 <Tiffani Greer PA-C - Last Filed: 03/02/23 20:50> Review of Systems Review of Systems: CONSTITUTIONAL: Denies fever, chills EYES: Denies visual changes, redness, or discharge. ENT: Denies rhinorrhea, congestion, sore throat, or otalgia. CARDIOVASCULAR: Denies chest pain, palpitations, or edema. RESPIRATORY: Denies cough or dyspnea. GASTROINTESTINAL: Denies abdominal pain, nausea, vomiting, or diarrhea. GENITOURINARY: Denies dysuria or hematuria. SKIN: Denies rash or itching. MUSCULOSKELETAL: See HPI NEUROLOGIC: Denies headache, numbness, dizziness, or weakness. PSYCHIATRIC: Denies anxiety or depression. <Tiffani Greer PA-C - Last Filed: 03/02/23 20:50> [facility] Past Medical History Medical History: Medical History Diabetes High cholesterol <Tiffani Greer PA-C - Last Filed: 03/02/23 20:50> Surgical History Surgical History: Surgical History History of appendectomy History of hip replacement, total Right total hip replacement History of shoulder surgery Left shoulder <Tiffani Greer PA-C - Last Filed: 03/02/23 20:50> Family History Family History: Family History Mother Heart disease, Onset Age: 54 Acute myocardial infarction Cancer Chronic obstructive pulmonary disease Father Heart disease, Onset Age: 72 Diabetes mellitus Acute my
[2023-03-02] MEDS: ACETAMINOPHEN 500 MG TABLET 1000 MG PO (18:47)
[2023-03-02 19:06] LABS: Estimated CRCL calculation 89 ml/min; Estimated Glomerular Filt Rate > 60
[2023-03-02 19:42] LABS: Basophils Percent Auto 0.5 % (0.2-1.2); Eosinophils Absolute Auto 0.2 K/mm3 (0-0.3); Eosinophils Percent Auto 2.3 % (0-4.4); Hematocrit 39.6 % (42.0-52.0); Hemoglobin 12.8 g/dL (14.0-18.0); Immature Granulocyte Absolute 0.03 K/mm3 (0.00-0.031); Immature Granulocyte Percent A 0.3 % (0-0.5); Lymphocytes Absolute Auto 1.92 K/mm3 (0.9-3.2); Mean Corpuscular HGB Conc 32.3 g/dl (32-36); Mean Corpuscular Hemoglobin 27.8 pg (26-34); Mean Corpuscular Volume 86.1 fl (80-100); Mean Platelet Volume 9.7 fl (7.4-10.4); Monocytes Absolute Auto 0.8 K/mm3 (0.1-0.6); Monocytes Percent Auto 9.2 % (2.6-8.5); Neutrophils Absolute Auto 5.7 K/mm3 (1.3-6.7); Neutrophils Percent Auto 65.7 % (45.5-73.1); Platelet Count Result 228 k/mm3 (150-375); Red Cell Distribution Width 14.8 % (11.5-14.5); White Blood Count 8.7 K/mm3 (4.5-10.0)
[2023-03-02 19:53] LABS: Anion Gap 8 mmol/L (8-16); Blood Urea Nitrogen 22 mg/dL (9-20); Calcium 8.6 mg/dL (8.4-10.2); Carbon Dioxide 22 mmol/L (22-30); Chloride 103 mmol/L (98-107); Estimated CRCL calculation 98 ml/min; Estimated Glomerular Filt Rate > 60; Glucose 223 mg/dL (65-110); Potassium 4.2 mmol/L (3.4-5.0); Sodium 133 mmol/L (137-145)
[2023-03-02 20:59] VITALS: BP 109/76; PULSE 96; RESP 18; O2SAT 97
== END 2023-03-02 21:00 | disposition home or self-care (01) ==
PROVIDERS: Emergency Provider Physician Assistant; PCP Internal Medicine
DX: S70.12XA Contusion of left thigh, initial encounter (principal); S76.312A Strain of muscle, fascia and tendon of the posterior muscle group at thigh level, left thigh, initial encounter; E78.5 Hyperlipidemia, unspecified; E11.9 Type 2 diabetes mellitus without complications; Z96.641 Presence of right artificial hip joint; Z87.891 Personal history of nicotine dependence; Z79.85 Long-term (current) use of injectable non-insulin antidiabetic drugs; Z79.4 Long term (current) use of insulin; Z79.84 Long term (current) use of oral hypoglycemic drugs; M16.12 Unilateral primary osteoarthritis, left hip; W18.09XA Striking against other object with subsequent fall, initial encounter; Y93.H2 Activity, gardening and landscaping
CPT/HCPCS: 73502; 73706; 80048; 85025; 99284; A9270; Q9967

== ENCOUNTER 2023-06-13 08:31 | Outpatient (CLI) | payer BC, SELFPAY ==
[2023-06-13 09:17] LABS: Anion Gap 13 mmol/L (8-16); Blood Urea Nitrogen 16 mg/dL (9-20); Calcium 9.4 mg/dL (8.4-10.2); Carbon Dioxide 20 mmol/L (22-30); Chloride 103 mmol/L (98-107); Estimated Glomerular Filt Rate > 60; Glucose 235 mg/dL (65-110); Potassium 4.1 mmol/L (3.4-5.0); Sodium 136 mmol/L (137-145)
== END 2023-06-13 08:32 | disposition home or self-care (01) ==
LOC: ANHSURGERY 08:37
PROVIDERS: Anesthesiology; PCP Internal Medicine; Visit Provider Orthopaedic Surgery
DX: Z01.818 Encounter for other preprocedural examination (principal); E11.9 Type 2 diabetes mellitus without complications
CPT/HCPCS: 36415; 80048

== ENCOUNTER 2023-06-17 00:16 | Day surgery (SDC) | payer BC, SELFPAY ==
[2023-06-12 12:17] VITALS: BMI 37.0
--- NOTE | 2023-06-12 12:23 | PC.NURSE ---
Report to the Outpatient Waiting Room, entrance under the green pavilion located off [facility], at time 10:00 on date 06/17/23. Planned Procedure Time: 12:00. Time changes happen often and if your time is changed the preop area will call you the afternoon before. - You and your visitor will be asked to self-screen and do not enter if you have any COVID symptoms. - A mask is optional within the hospital at this time. Patients may have clear liquids (water, carbonated beverages, clear teas, apple juice) until 3 hours prior to surgery (9:00) with a maximum of 20 ounces. - No food from midnight until time of surgery Take the following medications with a SIP of water the morning of surgery: METOPROLOL DO NOT STOP ANY OF YOUR OTHER PRESCRIPTION MEDICATIONS PRIOR TO SURGERY ?EXCEPT THE FOLLOWING Medications to discontinue per physician: ASPIRIN Date to take last dose: PT TO CHECK WITH DR. CELESTIN Please no make-up, nail portuguese, hairspray, perfume, deodorant, or body powder the day of surgery. No jewelry (including any body piercings) or valuables the day of surgery, leave them at home. Please take a shower or bath the night before, or the morning of, surgery with an antibacterial soap. Wear comfortable, loose fitting clothing. - Jewelry must be removed prior to entering the operating room. Rings and piercings that are not removed may be cut off. - The hospital will not accept responsibility for valuables. - Please leave all valuables, including medications, at home the day of surgery. If you are going home after surgery, a licensed hammer driver must drive you home. - NO public transportation without another adult if you receive anesthesia. - We recommend that an adult stay with you for 24 hours following discharge. - We also recommend that you do not drive, make important decision, drink alcoholic beverages, or take any drugs that were not prescribed by your health care provider for at least 24 hours after your discharge time. Follow any additional instructions given to you from your surgeon. If you or anyone in your household have experienced Covid symptoms in the past week, please notify your surgeon or the nurse liaison at the phone number below for possible testing. Telephone instructions given to PT - ALEX BRADY and asked if any additional questions and then verbalized understanding. Patient advised to call surgeon office or pre surgery nurse liaison [phone] if any additional questions.
--- NOTE | 2023-06-13 11:00 | PM.IMHP ---
H&P: HPI History of Present Illness Date/Time: 06/13/23 11:00 Chief Complaint: Complaint is carpal tunnel right hand. Narrative: Patient has longstanding complaints of his right hand numbness, tingling and pain. He has tried medicine, therapy, bracing anti-inflammatory medication, and time. Unfortunately the numbness and tingling persist. Review of Systems Musculoskeletal: Musculoskeletal: Reports arthralgias and Reports stiffness PMFSH Past Medical History Medical History (Updated 06/13/23 @ 11:03 by Varinder Antunez MD) Diabetes High cholesterol Surgical History Surgical History History of appendectomy History of heart bypass surgery History of hip replacement, total Right total hip replacement History of shoulder surgery Left shoulder Family History Family History Mother Heart disease, Onset Age: 54 Acute myocardial infarction Cancer Chronic obstructive pulmonary disease Father Heart disease, Onset Age: 72 Diabetes mellitus Acute myocardial infarction Hypertension Cerebrovascular accident Cancer Other Breast cancer Social History Social History (Updated 06/10/23 @ 08:45 by Gogo Felder CMA) Smoking packs per day: 1.5 Smoking cigarettes per day: 30.0 Years smoked: 30 Smoking pack-years: 45.00 Smoking status: Former smoker Tobacco type: cigarettes Second hand tobacco smoke exposure: No Smoking end date: 07/29/13 Alcohol intake: current Alcohol use details: 2/MONTH Substance use: never Substance use type: does not use Lack of Transportation: No Lack of Food: Never True Current Housing: I Have Housing Concerned About Future Housing: No Difficulty Paying Gas/Electric Bills: No Difficulty Paying for Meds: No Currently Unemployed: No Education: High School Diploma/GED Difficulty w/ Childcare or Family Care: No Living arrangements: with family Occupation/Education: occupation 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 Gender identity (if verbalized by the patient): Male Spiritual care concerns: No Meds Home Medications and Allergies Home Medications Medication Instructions Recorded Confirmed Type insulin detemir U-100 100 unit/mL 40 unit subcut DAILY 06/23/20 06/12/23 History (3 mL) subcutaneous pen (Levemir FlexTouch U-100 Insulin) lisinopril 2.5 mg tablet (Zestril) 2.5 mg PO DAILY 06/23/20 06/12/23 History metformin 1,000 mg tablet 1,000 mg PO BID 06/23/20 06/12/23 History (Glucophage) aspirin 81 mg tablet,delayed 81 mg PO QAM #30 tabs 09/23/21 06/12/23 Rx release metoprolol succinate 50 mg 50 mg PO QAM #60 tabs 09/23/21 06/12/23 Rx tablet,extended release 24 hr atorvastatin 40 mg tablet 40 mg PO HS 12/05/21 06/12/23 History dapagliflozin propanediol 10 mg 20 mg PO QAM 12/05/21 06/12/23 History tablet (Farxiga) semaglutide 1 mg/dose (4 mg/3 mL) 1 mg subcut WEEKLY 06/12/23 06/12/23 History subcutaneous pen injector (Ozempic) Allergies Allergy/AdvReac Type Severity Reaction Status Date / Time No Known Allergies Allergy Verified 06/12/23 12:15 Exam Narrative: On exam he has got a numbness and tingling in the median nerve distribution he has got a positive Phalen's and carpal tunnel compression test. He has some thenar wasting. Assessment and Plan Assessment and plan (1) Carpal tunnel syndrome of right wrist: Code(s): G56.01 - Carpal tunnel syndrome, right upper limb Status: Acute Assessment and Plan: Patient has carpal tunnel syndrome right. He has had an extensive course of physical therapy without relief. He has numbness and tingling in the median nerve distribution. He has a positive Phalen's and carpal tunnel compression test. He has failed conservative treatment. He has a positive EMG th
--- NOTE | 2023-06-17 08:27 | WPDANESEPPF ---
Anes - Initial Pre Proc Eval Procedure: Operation Date: 06/17/23 12:00 Proposed Procedures p Right Carpal Tunnel Release - Varinder Antunez MD Date/Time: 06/17/23 08:27 Surgeon: Varinder Antunez MD Pre Op Diagnosis: right carpal tunnel syndrome Patient Data Age: 57 Gender: M Height: 1.78 m Weight: 117 kg Allergies Allergy/AdvReac Type Severity Reaction Status Date / Time No Known Allergies Allergy Verified 06/12/23 12:15 Home Medications Medication Instructions Recorded Confirmed Type insulin detemir U-100 100 unit/mL 40 unit subcut DAILY 06/23/20 06/12/23 History (3 mL) subcutaneous pen (Levemir FlexTouch U-100 Insulin) lisinopril 2.5 mg tablet (Zestril) 2.5 mg PO DAILY 06/23/20 06/12/23 History metformin 1,000 mg tablet 1,000 mg PO BID 06/23/20 06/12/23 History (Glucophage) aspirin 81 mg tablet,delayed 81 mg PO QAM #30 tabs 09/23/21 06/12/23 Rx release metoprolol succinate 50 mg 50 mg PO QAM #60 tabs 09/23/21 06/12/23 Rx tablet,extended release 24 hr atorvastatin 40 mg tablet 40 mg PO HS 12/05/21 06/12/23 History dapagliflozin propanediol 10 mg 20 mg PO QAM 12/05/21 06/12/23 History tablet (Farxiga) semaglutide 1 mg/dose (4 mg/3 mL) 1 mg subcut WEEKLY 06/12/23 06/12/23 History subcutaneous pen injector (Ozempic) Patient hx anesthesia problems: none Family hx anesthesia problems: none Results Review: All pre-operative results and documents have been reviewed as part of the pre-operative evaluation. [facility] Past Medical History Medical History (Updated 06/17/23 @ 08:27 by Dawson Pfeiffer DO) CAD (coronary artery disease) Diabetes insulin High cholesterol Surgical History Surgical History (Updated 06/17/23 @ 08:27 by Dawson Pfeiffer DO) History of appendectomy History of heart bypass surgery History of hip replacement, total Right total hip replacement History of shoulder surgery Left shoulder Hx of CABG 09/2021 x2 vessel Family History Family History Mother Heart disease, Onset Age: 54 Acute myocardial infarction Cancer Chronic obstructive pulmonary disease Father Heart disease, Onset Age: 72 Diabetes mellitus Acute myocardial infarction Hypertension Cerebrovascular accident Cancer Other Breast cancer Social History Social History (Updated 06/10/23 @ 08:45 by Gogo Felder [facility]) Smoking packs per day: 1.5 Smoking cigarettes per day: 30.0 Years smoked: 30 Smoking pack-years: 45.00 Smoking status: Former smoker Tobacco type: cigarettes Second hand tobacco smoke exposure: No Smoking end date: 07/29/13 Alcohol intake: current Alcohol use details: 2/MONTH Substance use: never Substance use type: does not use Lack of Transportation: No Lack of Food: Never True Current Housing: I Have Housing Concerned About Future Housing: No Difficulty Paying Gas/Electric Bills: No Difficulty Paying for Meds: No Currently Unemployed: No Education: High School Diploma/GED Difficulty w/ Childcare or Family Care: No Living arrangements: with family Occupation/Education: occupation 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 Informed Consent: The patient's anesthetic plan and its attendant risks and be
[2023-06-17 10:10] VITALS: BP 130/83; PULSE 85; RESP 14; TEMP 36.2; O2SAT 98
[2023-06-17 10:45] LABS: Glucose Point of Care 173 mg/dl (65-105)
[2023-06-17] MEDS: LACTATED RINGERS 1,000 ML 30 ML IV CONT (10:45)
[2023-06-17] MEDS: ACETAMINOPHEN 500 MG TABLET 1000 MG PO (10:45)
[2023-06-17] MEDS: KETOROLAC 15 MG/ML VIAL (*BKC) IV PUSH (10:45)
--- NOTE | 2023-06-17 10:55 | WPDHPUPDATE1 ---
History and Physical Update Update Date/Time: 06/17/23 10:55 History and Physical has been reviewed, including an updated exam of the patient. There are NO changes in the patient's condition. Risks, benefits, and alternatives have been discussed and questions answered. Patient agrees to proceed with procedure. Patient has a RIGHT 3rd trigger finger. He would like it released as well. Discussed at length.
[2023-06-17] MEDS: ceFAZolin 2 GM/D5W 50 ML 2 GM/50 ML BAG IVPB (11:46)
[2023-06-17] MEDS: LIDOCAINE HCL 1% LOCAL INJ 10 ML VIAL INFILTRATE (12:05)
--- NOTE | 2023-06-17 12:12 | P.OP_ITS ---
Procedure Note - Detailed Date of Procedure 06/17/23 Pre-op Diagnosis Right carpal tunnel syndrome Right 3rd Trigger Finger Post-op Diagnosis Same Procedure Performed RIGHT carpal tunnel release Right 3rd Trigger Finger Releas Surgeon Varinder Antunez MD Poultry [employer]eder [facility] Description of Procedure After sterile prep and drape, I injected the area of intended incision with 10ml of 1% lidocaine. A longitudinal incision was made in line with the ulnar boarder of the third finger. Disection carried down to the fascia, the fascia split and the carpal ligament identified. The carpal ligament was released and the flexor retinaculum was released as well. The nerve was noted to be red purple in color and in continuity. The wound was irrigated, hemostatis was obtained and closed with 3-0 prolene. I then proceeded to the 3rd trigger finger. Lidocaine injected, and a transverse incision was made. Dissection bluntly carried down to the A1 freda, protecting the neurovascular bundles. The A1 freda was released,and full excursion was obtained. The wound closed with 3-0 Prolene. Estimated Blood Loss 5 Drains No Packing No Pathology None sent Complications No immediate complications Condition Stable Disposition Same day [facility] Billing Surgery - Charge Forward: Surgery Billing (RIGHT Carpal tunnel 34070 RIGHT 3rd Trigger Finger [id number])
[2023-06-17 12:27] VITALS: BP 100/69; PULSE 82; RESP 14; O2SAT 93
[2023-06-17 12:55] VITALS: BP 106/70; PULSE 76; RESP 16; O2SAT 96
[2023-06-17 13:13] VITALS: BP 108/66; PULSE 72; RESP 18; O2SAT 96
== END 2023-06-17 13:13 | disposition home or self-care (01) ==
PROVIDERS: PCP Internal Medicine; Visit Provider Orthopaedic Surgery
PROC: (CPT 64721; principal; 2023-06-17 12:00)
DX: G56.01 Carpal tunnel syndrome, right upper limb (principal); M65.331 Trigger finger, right middle finger; E11.9 Type 2 diabetes mellitus without complications; Z96.641 Presence of right artificial hip joint; Z87.891 Personal history of nicotine dependence
CPT/HCPCS: 64721; 26055; 82948; A9270; J0690; J1100; J1885; J2250; J2405; J2704; J3010; J7120

== ENCOUNTER 2023-07-01 00:31 | Day surgery (SDC) | payer BC, SELFPAY ==
--- NOTE | 2023-06-19 13:36 | SUR.PREOP ---
Report to the Outpatient Waiting Room, entrance under the green pavilion located off [facility], at time 1130 on date 07/01/23. Planned Procedure Time: 1330. Time changes happen often and if your time is changed the preop area will call you the afternoon before. - You and your visitor will be asked to self-screen and do not enter if you have any COVID symptoms. - A mask is optional within the hospital at this time. Patients may have clear liquids (water, carbonated beverages, clear teas, apple juice) until 3 hours prior to surgery with a maximum of 20 ounces. - NO CLEAR LIQUIDS AFTER 1030 - No food from midnight until time of surgery - Infants may have breast milk until 4 hours before surgery, infant formula 6 hours prior to surgery. - Children will be allowed to drink immediately following surgery. If applicable, please bring a bottle or sippy cup to assist with drinking. Juice, water, soda, and popsicles are readily available. For infants on formula, please bring formula the day of surgery. Pacifiers are allowed. Take the following medications with a SIP of water the morning of surgery: METOPROLOL DO NOT STOP ANY OF YOUR OTHER PRESCRIPTION MEDICATIONS PRIOR TO SURGERY ?EXCEPT THE FOLLOWING Medications to discontinue per physician (INSTRUCTED TO CONTINUE 81MG ASPIRIN PER DR CELESTIN) Please no make-up, nail occitan, hairspray, perfume, deodorant, or body powder the day of surgery. No jewelry (including any body piercings) or valuables the day of surgery, leave them at home. Please take a shower or bath the night before, or the morning of, surgery with an antibacterial soap. Wear comfortable, loose fitting clothing. Children are encouraged to wear pajamas. - Jewelry must be removed prior to entering the operating room. Rings and piercings that are not removed may be cut off. - The hospital will not accept responsibility for valuables. - Please leave all valuables, including medications, at home the day of surgery. If you are going home after surgery, a licensed vacuum truck driver must drive you home. - NO public transportation without another adult if you receive anesthesia. - We recommend that an adult stay with you for 24 hours following discharge. - We also recommend that you do not drive, make important decision, drink alcoholic beverages, or take any drugs that were not prescribed by your health care provider for at least 24 hours after your discharge time. For Pediatric surgeries, we recommend two adults accompany the child home. Follow any additional instructions given to you from your surgeon. If you or anyone in your household have experienced Covid symptoms in the past week, please notify your surgeon or the nurse liaison at the phone number below for possible testing. Telephone instructions given to ADINA BRADY and asked if any additional questions and then verbalized understanding. Patient advised to call surgeon office or pre surgery nurse liaison [phone] if any additional questions.
[2023-06-19 13:49] VITALS: BMI 37.0
--- NOTE | 2023-06-27 13:22 | PM.IMHP ---
H&P: HPI History of Present Illness Date/Time: 06/27/23 13:22 Chief Complaint: CRPl Tunnel Left Narrative: Patient presents carpal tunnel syndrome left. He just had his right carpal tunnel release 2 weeks ago by me and has done well. The numbness and tingling to a large degree resolved. . Review of Systems Review of Systems: All systems reviewed & are unremarkable except as noted in HPI and below Musculoskeletal: Musculoskeletal: Reports joint swelling PMFSH Past Medical History Medical History (Updated 06/27/23 @ 13:24 by Varinder Antunez MD) CAD (coronary artery disease) Diabetes insulin High cholesterol Surgical History Surgical History (Updated 06/24/23 @ 09:06 by Gogo Felder CMA) History of appendectomy History of carpal tunnel release Right History of heart bypass surgery History of hip replacement, total Right total hip replacement History of shoulder surgery Left shoulder Hx of CABG 09/2021 x2 vessel Family History Family History Mother Heart disease, Onset Age: 54 Acute myocardial infarction Cancer Chronic obstructive pulmonary disease Father Heart disease, Onset Age: 72 Diabetes mellitus Acute myocardial infarction Hypertension Cerebrovascular accident Cancer Other Breast cancer Social History Social History (Updated 06/10/23 @ 08:45 by Gogo Felder CMA) Smoking packs per day: 1.5 Smoking cigarettes per day: 30.0 Years smoked: 30 Smoking pack-years: 45.00 Smoking status: Former smoker Tobacco type: cigarettes Second hand tobacco smoke exposure: No Smoking end date: 07/29/13 Alcohol intake: current Alcohol use details: 2/MONTH Substance use: never Substance use type: does not use Lack of Transportation: No Lack of Food: Never True Current Housing: I Have Housing Concerned About Future Housing: No Difficulty Paying Gas/Electric Bills: No Difficulty Paying for Meds: No Currently Unemployed: No Education: High School Diploma/GED Difficulty w/ Childcare or Family Care: No Living arrangements: with family Occupation/Education: occupation 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 Gender identity (if verbalized by the patient): Male Spiritual care concerns: No Meds Home Medications and Allergies Home Medications Medication Instructions Recorded Confirmed Type insulin detemir U-100 100 unit/mL 40 unit subcut DAILY 06/23/20 06/24/23 History (3 mL) subcutaneous pen (Levemir FlexTouch U-100 Insulin) lisinopril 2.5 mg tablet (Zestril) 2.5 mg PO DAILY 06/23/20 06/24/23 History metformin 1,000 mg tablet 1,000 mg PO BID 06/23/20 06/24/23 History (Glucophage) aspirin 81 mg tablet,delayed 81 mg PO QAM #30 tabs 09/23/21 06/24/23 Rx release metoprolol succinate 50 mg 50 mg PO QAM #60 tabs 09/23/21 06/24/23 Rx tablet,extended release 24 hr atorvastatin 40 mg tablet 40 mg PO HS 12/05/21 06/24/23 History dapagliflozin propanediol 10 mg 20 mg PO QAM 12/05/21 06/24/23 History tablet (Farxiga) semaglutide 1 mg/dose (4 mg/3 mL) 1 mg subcut WEEKLY 06/12/23 06/24/23 History subcutaneous pen injector (Ozempic) hydrocodone 7.5 mg-acetaminophen 1 tablet PO Q4H PRN pain #20 tabs 06/17/23 06/24/23 Rx 325 mg tablet cephalexin 500 mg capsule 500 mg PO TID #30 caps 06/24/23 06/24/23 Rx Allergies Allergy/AdvReac Type Severity Reaction Status Date / Time No Known Allergies Allergy Verified 06/24/23 09:05 Exam Narrative: He has numbness and tingling in the median nerve distribution on the left hand. He has a positive Phalen's and carpal tunnel compression test. Eyes: General: appearance normal, both eyes and all related structures Neck: Neck: supple Resp: Effort & Inspection: normal respiratory effort Cardio: Rate: regular rate Rhythm: regular rhythm Assessment
--- NOTE | 2023-07-01 11:44 | WPDHPUPDATE1 ---
History and Physical Update Update Date/Time: 07/01/23 11:44 History and Physical has been reviewed, including an updated exam of the patient. There are NO changes in the patient's condition. Risks, benefits, and alternatives have been discussed and questions answered. Patient agrees to proceed with procedure.
[2023-07-01] MEDS: ACETAMINOPHEN 500 MG TABLET 1000 MG PO (12:13)
--- NOTE | 2023-07-01 12:18 | WPDANESEPPF ---
Anes - Initial Pre Proc Eval Procedure: Operation Date: 07/01/23 13:30 Proposed Procedures p Left Carpal Tunnel Release - Varinder Antunez MD Date/Time: 07/01/23 12:18 Surgeon: Varinder Antunez MD Pre Op Diagnosis: left carpal tunnel syndrome Patient Data Age: 58 Gender: M Height: 1.78 m Weight: 117.2 kg Allergies Allergy/AdvReac Type Severity Reaction Status Date / Time No Known Allergies Allergy Verified 07/01/23 11:55 Home Medications Medication Instructions Recorded Confirmed Type insulin detemir U-100 100 unit/mL 40 unit subcut DAILY 06/23/20 06/24/23 History (3 mL) subcutaneous pen (Levemir FlexTouch U-100 Insulin) lisinopril 2.5 mg tablet (Zestril) 2.5 mg PO DAILY 06/23/20 06/24/23 History metformin 1,000 mg tablet 1,000 mg PO BID 06/23/20 06/24/23 History (Glucophage) aspirin 81 mg tablet,delayed 81 mg PO QAM #30 tabs 09/23/21 06/24/23 Rx release metoprolol succinate 50 mg 50 mg PO QAM #60 tabs 09/23/21 06/24/23 Rx tablet,extended release 24 hr atorvastatin 40 mg tablet 40 mg PO HS 12/05/21 06/24/23 History dapagliflozin propanediol 10 mg 20 mg PO QAM 12/05/21 06/24/23 History tablet (Farxiga) semaglutide 1 mg/dose (4 mg/3 mL) 1 mg subcut WEEKLY 06/12/23 06/24/23 History subcutaneous pen injector (Ozempic) hydrocodone 7.5 mg-acetaminophen 1 tablet PO Q4H PRN pain #20 tabs 06/17/23 06/24/23 Rx 325 mg tablet cephalexin 500 mg capsule 500 mg PO TID #30 caps 06/24/23 06/24/23 Rx Patient hx anesthesia problems: none Family hx anesthesia problems: none Results Review: All pre-operative results and documents have been reviewed as part of the pre-operative evaluation. [facility] Past Medical History Medical History (Updated 06/27/23 @ 13:24 by Varinder Antunez MD) CAD (coronary artery disease) Diabetes insulin High cholesterol Surgical History Surgical History (Updated 06/24/23 @ 09:06 by Gogo Felder CMA) History of appendectomy History of carpal tunnel release Right History of heart bypass surgery History of hip replacement, total Right total hip replacement History of shoulder surgery Left shoulder Hx of CABG 09/2021 x2 vessel Family History Family History Mother Heart disease, Onset Age: 54 Acute myocardial infarction Cancer Chronic obstructive pulmonary disease Father Heart disease, Onset Age: 72 Diabetes mellitus Acute myocardial infarction Hypertension Cerebrovascular accident Cancer Other Breast cancer Social History Social History (Updated 06/10/23 @ 08:45 by Gogo Felder CMA) Smoking packs per day: 1.5 Smoking cigarettes per day: 30.0 Years smoked: 30 Smoking pack-years: 45.00 Smoking status: Former smoker Tobacco type: cigarettes Second hand tobacco smoke exposure: No Smoking end date: 07/29/13 Alcohol intake: current Alcohol use details: 2/MONTH Substance use: never Substance use type: does not use Lack of Transportation: No Lack of Food: Never True Current Housing: I Have Housing Concerned About Future Housing: No Difficulty Paying Gas/Electric Bills: No Difficulty Paying for Meds: No Currently Unemployed: No Education: High School Diploma/GED Difficulty w/ Childcare or Family Care: No Living arrangements: with family Occupation/Education: occupation 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
[2023-07-01] MEDS: LACTATED RINGERS 1,000 ML 30 ML IV CONT (12:20)
[2023-07-01 12:28] LABS: Glucose Point of Care 184 mg/dl (65-105)
[2023-07-01 12:30] VITALS: BP 121/81; PULSE 87; RESP 16; TEMP 36.4; O2SAT 97
[2023-07-01] MEDS: KETOROLAC 15 MG/ML VIAL (*BKC) IV PUSH (12:40)
[2023-07-01] MEDS: ceFAZolin 2 GM/D5W 50 ML 2 GM/50 ML BAG IVPB (13:11)
[2023-07-01] MEDS: LIDOCAINE HCL 1% LOCAL INJ 10 ML VIAL INFILTRATE (13:31)
--- NOTE | 2023-07-01 13:31 | W.PM.PROC2 ---
Procedure Note - Detailed Date of Procedure 07/01/23 Pre-op Diagnosis left carpal tunnel syndrome Post-op Diagnosis Same Procedure Performed LEFT carpal tunnel release Surgeon Varinder Antunez MD Anesthesia MAC Description of Procedure After sterile prep and drape, I injected the area of intended incision with 10ml of 1% lidocaine. A longitudinal incision was made in line with the ulnar boarder of the third finger. Disection carried down to the fascia, the fascia split and the carpal ligament identified. The carpal ligament was released and the flexor retinaculum was released as well. The nerve was noted to be red purple in color and in continuity. The wound was irrigated, hemostatis was obtained and closed with 3-0 prolene. Estimated Blood Loss 5 Drains No Packing No Pathology None sent Complications No immediate complications Condition Stable Disposition Same day [facility] Billing Surgery - Charge Forward: Surgery Billing (CARPAL TUNNEL: [id number])
[2023-07-01 13:45] VITALS: BP 111/68; PULSE 82; RESP 16; O2SAT 92
[2023-07-01 14:07] LABS: Glucose Point of Care 171 mg/dl (65-105)
[2023-07-01 14:15] VITALS: BP 111/73; PULSE 73
[2023-07-01 14:45] VITALS: BP 122/78; PULSE 67
== END 2023-07-01 15:13 | disposition home or self-care (01) ==
PROVIDERS: PCP Internal Medicine; Visit Provider Orthopaedic Surgery
PROC: (CPT 64721; principal; 2023-07-01 13:30)
DX: G56.02 Carpal tunnel syndrome, left upper limb (principal); E11.9 Type 2 diabetes mellitus without complications; E78.00 Pure hypercholesterolemia, unspecified; E66.9 Obesity, unspecified; Z68.36 Body mass index [BMI] 36.0-36.9, adult; Z79.4 Long term (current) use of insulin; Z79.84 Long term (current) use of oral hypoglycemic drugs; Z79.82 Long term (current) use of aspirin; Z79.85 Long-term (current) use of injectable non-insulin antidiabetic drugs; Z79.891 Long term (current) use of opiate analgesic; Z95.1 Presence of aortocoronary bypass graft; Z87.891 Personal history of nicotine dependence; Z86.79 Personal history of other diseases of the circulatory system; Z82.49 Family history of ischemic heart disease and other diseases of the circulatory system; Z80.3 Family history of malignant neoplasm of breast
CPT/HCPCS: 64721; 82948; A9270; J0690; J1885; J2250; J2704; J3010; J7120

== ENCOUNTER 2025-02-10 09:59 | Outpatient (CLI) | payer BC, SELFPAY ==
--- OUTSIDE RECORDS SUMMARY | 2025-02-10 10:14 | XMS_ITS | Clinical Summary ---
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 Name Role Phone Unavailable Primary Care Provider Unavailabl e Social History Tobacco Use Types Packs/Day Years Used Date Smoking Tobacco: Never Assessed Sex and Gender Information Value Date Recorded Sex Assigned at Not on file Legal Sex Male 8:30 PM CDT Gender Identity Not on file Sexual Orientation Not on file Last Filed Vital Signs Vital Sign Reading Time Taken Comments Blood Pressure 148/86 12/28/2013 10:36 AM CDT Pulse 80 12/28/2013 10:36 AM CDT Temperature - - Respiratory Rate - - Oxygen Saturation - - Inhaled Oxygen Concentration - - Weight 114.8 kg (253 lb) 12/28/2013 10:36 AM CDT Height 177.8 cm (5' 10) 12/28/2013 10:36 AM CDT Body Mass Index 36.3 12/28/2013 10:36 AM CDT Plan of Treatment Health Maintenance Due Date Last Done Comments Colorectal Cancer Screening Colonoscopy (10 Years) 1965 Annual Physical 1967 Hepatitis C 1982 DTaP, Tdap and Td Vaccines ( 1 - Tdap) 1983 Pneumococcal Vaccine: 50+ Ye ars (1 of 1 - PCV) 2014 Zoster Vaccines (1 of 2) 2014 COVID-19 Vaccine ( - 2023-2 5 season) 2024 RSV Immunization or 60+ Years (1 - 1-dose 75+ series) 2039 Meningococcal B Vaccine Aged Out No l onger eligible based on patient's age to complete this topic Meningococcal Vaccine Aged Out No ricky benson eligible based on patient's age to complete this topic RSV Immunizations Under 20 Months Aged Out No longer eligible based on patient's age to complete this topic
--- OUTSIDE RECORDS SUMMARY | 2025-02-10 10:14 | XMS_ITS | Referral Summary ---
Author Organization [facility] [address] [facility] [address] Address [address] [place] [address] Care Team Providers Care Recovery Coordinator Name Role Phone Anoop Jackson MD Unavailable Rafaela Ortiz MD Primary Care Provide r Encounters Date Type Department Care Team Description 02/10/2025 9:30 AM CDT Office Visit [facility] Cardiology [address] [place] [address] Mary Garcia NP Lipid screening (Primary Dx); Hx of CABG; Coronary artery disease involving [place] coronary artery of [place] heart without angina pectoris from Last 3 Months Allergies No known active allergies Medications aspirin 81 mg enteric coated tablet Take 1 tablet (81 mg total) by mouth daily Active dapagliflozin (FARXIGA) 10 mg tablet Take 1 tablet (10 mg total) by mouth daily Active metFORMIN (GLUCOPHAGE) 1,000 mg tablet Take 1 tablet (1,000 mg total) by mouth 2 (two) times a day with meals Active atorvastatin (LIPITOR) 40 mg tablet Take 1 tablet (40 mg total) by mouth daily 30 tablet 1 2 Active lisinopriL (PRINIVIL,ZESTR [place]) 2.5 mg tablet Take 1 tablet (2.5 mg total) by mouth daily 30 tablet 11 2 09/08/19 26 Active metoprolol XL (TOPROL-XL) 50 mg extended release tablet TAKE 1 TABLET DAILY 90 tablet 3 4 Active insulin glargine (TOUJEO) 300 unit/mL (1.5 mL) pen for injection Inject 40 Units under the skin daily Active Ozempic 2 mg/dose (8 mg/3 mL) pen injector injection Inject 2 mg under the skin 5 Active Ozempic 0.25 mg or 0.5 mg(2 mg/1.5 mL) pen injector injection Inject 2 mg under the skin once a week 2 02/11/20 Discontinu ed(Alterna te therapy) Active Problems Problem Noted Date Diagnosed Date Lipid screening 02/10/2025 Hx of CABG 02/10/2025 Status post coronary artery bypass grafting 10/27 Chest pain 09/27/2021 Hypertension 09/27/2021 Other hyperlipidemia 09/27/2021 Class 2 severe obesity with serious comorbidity in adult 09/27/2021 Coronary artery disease invo lving [place] coronary artery of [place] heart 09/27/2021 Type 2 diabetes mellitus wit h circulatory disorder, with long-term current use of insulin 09/27/2021 Nicotine use disorder 09/27/2021 Social History Tobacco Use Types Packs/Day Years Used Date Smoking Tobacco: Former Cigarettes Q uit: 09/27/2013 Smokeless Tobacco: Never Tobacco Cessation:Counseling Given: Not Answered Alcohol Use Standard Drinks/Week Comments Yes 0 (1 standard drink = 0.6 oz pur e alcohol) Sex and Gender Information Value Date Recorded Sex Assigned at Not on file Legal Sex Male 1:17 PM 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 Gender Identity Not on file Sexual Orientation Not on file Last Filed Vital Signs Vital Sign Reading Time Taken Comments Blood Pressure 108/70 02/10/2025 9:30 AM CDT Pulse 79 02/10/2025 9:30 AM CDT Temperature 36.7 C (98.1 F) 11/09/2021 11:00 AM CDT Respiratory Rate 18 11/09/2021 11:00 AM CDT Oxygen Saturation 97% 02/10/2025 9:30 AM CDT Inhaled Oxygen Concentration - - Weight 111.6 kg (246 lb) 02/10/2025 9:30 AM CDT Height 177.8 cm (5' 10) 02/10/2025 9:30 AM CDT Body Mass Index 35.3 02/10/2025 9:30 AM CDT Plan of Treatment Not on file Procedures Procedure Name Priority Date/Time Associated Diagnosis Comments POCT LIPID PANEL Routine 02/10/2025 9:34 AM CDT Lipid screening EGFR Routine 10/08/2021 5:29 AM CDT HEMOGLOBIN A1C Routine 10/02/2021 3:34 PM 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 from Last 3 Months or Most Recently Relevant to Health Maintenance Results * POCT lipid panel (02/10/2025 9:34 AM CDT) Cholesterol, POC 122 <200 MG/DL HDL, POC 40 >=40 mg/dL Triglycerides, POC 60 <=149 mg/dL LDL Cholesterol POC 70 <=129 mg/dL Chol/HDL Ratio, POC 1.7 NONE Non-HDL Cholesterol, POC 82 NONE mg/dL Cholesterol Total, POC 122 30 - 199 mg/dL Capillary blood 02/10/2025 9 :34 AM CDT us Mary Garcia NP POINT OF CARE TEST ORDERABLE S Final Result * eGFR (10/08/2021 5:29 AM CDT) eGFR 110 mL/min/1. 73 m2 [facility] Comment: Interpretive Data Reference Interval Normal >/= 90 mL/min/1.73m2 Mildly decreased* 60 - 89 mL/min/1.73m2 Mildly to moderately decreased 45 - 59 mL/min/1.73m2 Moderately to severely decreased 30 - 44 mL/min/1.73m2 Severely decreased 15 - 29 mL/min/1.73m2 Kidney Failure < 15 mL/min/1.73m2 *Relative to young adult level Estimated glomerular filtration rate is determined by the 2020 CKD-EPI equation recommended by the National Kidney Foundation (A Unifying Approach to GFR Estimation: Recommendations of the NKF-ASK Task Force on Reassessing the Inclusion of Race in Diagnosing Kidney Disease, JASN 2020). The CKD-EPI equation should not be used for patients with unstable renal function and has not been validated in children and those over 70. Current interpretive data was last reviewed 2021. Blood 10/08/2021 5:29 AM CDT 10/08/2021 5:29 AM CDT Result [facility] Vanda MCCAULEY LAB BLOOD ORDERABLES Final R esult Performing Organization Address [facility] Co de Phone Number [facility] [address] [facility] [place] [address] * (ABNORMAL) Hemoglobin A1c (10/02/2021 3:34 PM 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) Hgb A1C 7.7(H) 4.0 - 5.6 % [facility] Estimated Average Glucose 174 mg/dL [facility] Comment: The ADA recommends reporting an estimated Average Glucose (eAG) with all Hemoglobin A1c results using the equation derived from a study of 507 normal and diabetic adults. Minority populations were underrepresented and children were not included. (Diabetes Care 31:1819-0651, 2008). The eAG is not equivalent to a fasting glucose. Blood 10/02/2021 3:34 PM 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 10/02/2021 3:44 PM 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 Johnathan Glass MD LAB BLOOD ORDERABLES Final Result Performing Organization Address [facility] de Phone Number [facility] [address] [facility] [place] [address] from Last 3 Months or Most Recently Relevant to Health Maintenance Insurance [facility] [employer] [facility] Address: [facility] [id number] [place] [address] [employer] [place] [employer] [place] Advance Directives For more information, please contact: [phone] * Full Code (Latest Code Status on File) Date Activated Date Inactivated Comments 09/27/2021 6:46 AM 10/09/2021 4:44 PM Care Teams Recovery Coordinator Relationship Specialty Start Date End Date Rafaela Ortiz MD [address] [facility] [address] [place] [address] PCP - General Internal Medicine 02/11/24 Anoop Jackson MD [address] [place], [place] [id number] Referring Physician Cardiology 10/03/21
--- OUTSIDE RECORDS SUMMARY | 2025-02-10 10:14 | XMS_ITS | Encounter Summary ---
Author Organization [facility] Address [address] [place] [address] Care Team Providers Care Adult Educator Name Role Phone Unavailable Primary Care Provider Unavailabl e Encounter Details Date Type Department Care Team (Latest Contact Info) Description 06/03/2018 Abstract [facility] , Generic Conversion, Social History Tobacco Use Types Packs/Day Years Used Date Smoking Tobacco: Never Assessed Sex and Gender Information Value Date Recorded Sex Assigned at Not on file Legal Sex Male 8:30 PM CDT Gender Identity Not on file Sexual Orientation Not on file documented as of this encounter Plan of Treatment Not on file documented as of this encounter Visit Diagnoses Not on filedocumented in this encounter
--- OUTSIDE RECORDS SUMMARY | 2025-02-10 10:14 | XMS_ITS | Encounter Summary ---
Author Organization [facility] Healthcare Address [address] [place] [address] Care Team Providers Care Trouble Locater Name Role Phone Anoop Jackson MD Unavailable Rafaela Ortiz MD Primary Care Provide r Reason for Visit * Reason Comments Follow-up Abnormal Lab tests b y PCP Encounter Details Date Type Department Care Team (Late st Contact Info) Description 02/10/2025 9:30 AM CDT Office Visit [facility] Cardiology [address] [place] [address] Mary Garcia NP [address] [place] [address] Lipid screening (Primary Dx); Hx of CABG; Coronary artery disease involving [place] coronary artery of [place] heart without angina pectoris Social History Tobacco Use Types Packs/Day Years Used Date Smoking Tobacco: Former Cigarettes Q uit: 09/27/2013 Smokeless Tobacco: Never Tobacco Cessation:Counseling Given: Not Answered Alcohol Use Standard Drinks/Week Comments Yes 0 (1 standard drink = 0.6 oz pur e alcohol) Sex and Gender Information Value Date Recorded Sex Assigned at Not on file 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 Gender Identity Not on file Sexual Orientation Not on file documented as of this encounter Last Filed Vital Signs Vital Sign Reading Time Taken Comments Blood Pressure 108/70 02/10/2025 9:30 AM CDT Pulse 79 02/10/2025 9:30 AM CDT Temperature - - Respiratory Rate - - Oxygen Saturation 97% 02/10/2025 9:30 AM CDT Inhaled Oxygen Concentration - - Weight 111.6 kg (246 lb) 02/10/2025 9:30 AM CDT Height 177.8 cm (5' 10) 02/10/2025 9:30 AM CDT Body Mass Index 35.3 02/10/2025 9:30 AM CDT documented in this encounter Progress Notes * Mary Garcia NP - 02/10/2025 9:30 AM CDT [facility] Cardiology [address] [place] [address] Date of Visit: 02/10/2025 Patient ID: Tono Calderon Sr. 1965 Chief Complaint: Tono Calderon Sr. is a 59 y.o. male who comes to the office for routine follow up History of Present Illness: Tono Calderon Sr. is a 59 y.o. 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 This patient presented [facility] with chest pain in the later part of August of 2021. He had symptoms that were fairly typical of ischemia so I brought him to the cardiac catheterization lab. 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 He was referred over to [facility] for consultation. CT scan of the chest over there demonstrated thedangerous inter arterial course of the anomalous LAD and after this he was referred for cardiothoracic surgery consultation and bypass grafting was performed successfully. He underwent a MASSEY to the LAD and a aorta coronary graft to the right coronary artery with good results. 02/10/2025 follow-up with CANAL TENDER - Tono Calderon Maryse comes to the office today for a follow up visit. Hecomes to the office today because he had blood work ordered by his primary care doctor and he is concerned about his triglyceride level. His triglycerides were 383. He did not fast prior to having his blood work done. He is not having any cardiac complaints of any kind. He denies chest pain, shortne ss of breath, palpitations, swelling, syncope, or presyncope. Records that I personally reviewed on the day of this visit include: (the interpretation is outlined in the HPI above) I have also reviewed: allergies, current medications, past family history, past medical history, past social history, past surgical history and problem list Review of Systems Constitutional: Negative for fever, malaise/fatigue, night sweats, weight gain and weight loss. HENT: Negative for hearing loss. Eyes: Negative for blurred vision and visual disturbance. Cardiovascular: Negative for chest pain, claudication, dyspnea on exertion, irregular heartbeat, leg swelling, near-syncope, orthopnea, palpitations, paroxysmal nocturnal dyspnea and syncope. Respiratory: Negative for shortness of breath, sleep disturbances due to breathing, snoring and wheezing. Hematologic/Lymphatic: Negative for bleeding problem. Musculoskeletal: Negative for muscle cramps and muscle weakness. Gastrointestinal: Negative for abdominal pain, change in bowel habit, diarrhea, nausea and vomiting. Genitourinary: Negative for hematuria. Neurological: Negative for dizziness and headaches. Vital Signs: BP 108/70 (BP Location: Right arm, Patient Position: Sitting) Pulse 79 Ht 177.8 cm (5' 10) Wt 111.6 kg (246 lb) SpO2 97% BMI 35.30 kg/m?? Body mass index is 35.3 kg/m??. Physical Exam Vitals reviewed. Constitutional: General: He is not in acute distress. Appearance: Normal appearance. He is obese. HENT: Head: Normocephalic and atraumatic. Eyes: Extraocular Movements: Extraocular movements intact. Conjunctiva/sclera: Conjunctivae normal. Neck: Vascular: No carotid bruit. Cardiovascular: Rate and Rhythm: Normal rate and regular rhythm. Heart sounds: Normal heart sounds. No murmur heard. Pulmonary: Effort: Pulmonary effort is normal. No respiratory distress. Breath sounds: Normal breath sounds. Abdominal: General: Bowel sounds are normal. Palpations: Abdomen is soft. Musculoskeletal: General: Normal range of motion. Cervical back: Normal range of motion and neck supple. Skin: General: Skin is warm and dry. Neurological: Mental Status: He is alert and oriented to person, place, and time. No Known Allergies Current Outpatient Medications: aspirin 81 mg enteric coated tablet, Take 1 tablet (81 mg total) by mouth daily, Disp: , Rfl: atorvastatin (LIPITOR) 40 mg tablet, Take 1 tablet (40 mg total) by mouth daily, Disp: 30 tablet, Rfl: 1 dapagliflozin (FARXIGA) 10 mg tablet, Take 1 tablet (10 mg total) by mouth daily, Disp: , Rfl: insulin glargine (TOUJEO) 300 unit/mL (1.5 mL) pen for injection, Inject 40 Units under the skin daily, Disp: , Rfl: lisinopriL (PRINIVIL,ZESTRIL) 2.5 mg tablet, Take 1 tablet (2.5 mg total) by mouth daily, Disp: 30 tablet, Rfl: 11 metFORMIN (GLUCOPHAGE) 1,000 mg tablet, Take 1 tablet (1,000 mg total) by mouth 2 (two) times a daywith meals, Disp: , Rfl: metoprolol XL (TOPROL-XL) 50 mg extended release tablet, TAKE 1 TABLET DAILY, Disp: 90 tablet, Rfl:3 Ozempic 2 mg/dose (8 mg/3 mL) pen injector injection, Inject 2 mg under the skin, Disp: , Rfl: Lab Results Component Value Date POTASSIUM 4.1 10/08/2021 BUNSER 21 10/08/2021 CREATININE 0.65 (L) 10/08/2021 CHOL 162 09/27/2021 TRIG 248 (H) 09/27/2021 LDLCALC 78 09/27/2021 HDL 34 (L) 09/27/2021 Assessment: Diagnoses and all orders for this visit: Lipid screening (Primary) - POCT lipid panel Hx of CABG Coronary artery disease involving [place] coronary artery of [place] heart without angina pectoris Lipid panel in the office today total cholesterol 122, HDL 40, triglycerides 60, LDL 70. Elevated triglycerides elevated on previous lab work as a result of patient not fasting prior to blood draw. In regards to his coronary artery disease, this is stable. Not reporting any anginal symptoms. Continue aspirin, statin, lifestyle modifications. Of note, he has decreased his intake of carbohydratesand has intentionally lost 16 lb. He has follow up with Dr. Jackson next month and wishes to keep this appointment. Mary Garcia ANP- Nurse Practitioner with [facility] Cardiology This note is dictated and transcribed using 5app Direct Software. Java Core Developer variancesmay occur. Despite proofreading, typographical errors may occur. documented in this encounter Plan of Treatment Not on file documented as of this encounter Procedures Procedure Name Priority Date/Time Associated Diagnosis Comments POCT LIPID PANEL Routine 02/10/2025 9:34 AM CDT Lipid screening documented in this encounter Results * POCT lipid panel (02/10/2025 9:34 AM CDT) Cholesterol, POC 122 <200 MG/DL HDL, POC 40 >=40 mg/dL Triglycerides, POC 60 <=149 mg/dL LDL Cholesterol POC 70 <=129 mg/dL Chol/HDL Ratio, POC 1.7 NONE Non-HDL Cholesterol, POC 82 NONE mg/dL Cholesterol Total, POC 122 30 - 199 mg/dL Capillary blood 02/10/2025 9 :34 AM CDT Mary Garcia NP POINT OF CARE TEST ORDERABLE S Final Result documented in this encounter Visit Diagnoses Diagnosis Lipid screening- Primary Screening for lipoid disorders Hx of CABG Postsurgical aortocoronary bypass status Coronary artery disease involving [place] coronary artery of [place] heart without angina pectoris documented in this encounter Discontinued Medications Medication Sig Discontinue Reason Start Date End Da te Ozempic 0.25 mg or 0.5 mg(2 mg/1.5 mL) pen injector injection Inject 2 mg under the skin once a week Alternate therapy 12/18/2021 02/10/2025 documented as of this encounter Historical Medications * This list may reflect changes made after this encounter. Ozempic 2 mg/dose (8 mg/3 mL) pen injector injection Inject 2 mg under the skin 11/20/2024 added in this encounter Care Teams Trouble Locater Relationship Specialty Start Date End Date Rafaela Ortiz MD [address] [address] PCP - General Internal Medicine 02/11/24 Anoop Jackson MD [address] [address] Referring Physician Cardiology 10/03/21 documented as of this encounter
--- OUTSIDE RECORDS SUMMARY | 2025-02-10 10:14 | XMS_ITS | Clinical Summary ---
Author Organization [facility] [place] [address] Address [address] [place] [address] Care Team Providers Care Sales And Operations Trainee Name Role Phone Anoop Jackson MD Unavailable [phone] Rafaela Ortiz MD Primary Care Provide r Allergies No known active allergies Medications aspirin [...] mg under the skin once a week 02/11/20 25 Discontinu ed(Alterna te therapy) Active Problems Problem Noted Date Diagnosed Date Lipid screening 02/10/2025 Hx of CABG 02/10/2025 Status post coronary artery bypass grafting 10/27 Chest pain 09/27/2021 Hypertension 09/27/2021 Other hyperlipidemia 09/27/2021 Class 2 severe obesity with serious comorbidity in adult 09/27/2021 Coronary artery disease invo lving [place] coronary artery of [place] heart 09/27/2021 Type 2 diabetes mellitus wit h circulatory disorder, with long-term current use of insulin 09/27/2021 Nicotine use disorder 09/27/2021 Encounters Date Type Department Care Team Description 02/10/2025 9:30 AM CDT Office Visit [facility] Card[facility] [address] [place] [address] Mary Garcia NP Lipid screening (Primary Dx); Hx of CABG; Coronary artery disease involving [place] coronary artery of [place] heart without angina pectoris from Last 3 Months Surgical History Surgery Date Site/Laterality Comments JOINT REPLACEMENT APPENDECTOMY CORONARY ARTERY BYPASS GRAFT 10/03/2021 CABG x 2 Medical History Medical History Date Comments Diabetes mellitus (HCC) Hypertension Coronary artery disease Family History Medical History Relation Name Comments Coronary artery disease Father Coronary artery disease Mother Relation Name Status Comments Father Mother Social History Tobacco Use Types Packs/Day Years Used Date Smoking Tobacco: Former Cigarettes Q uit: 09/27/2013 Smokeless Tobacco: Never Tobacco Cessation:Counseling Given: Not Answered Alcohol Use Standard Drinks/Week Comments Yes 0 (1 standard drink = 0.6 oz pur e alcohol) Sex and Gender Information Value Date Recorded Sex Assigned at Not on file 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 Gender Identity Not on file Sexual Orientation Not on file Obstetrics History Last Filed Vital Signs Vital Sign [place] [...] 02/10/2025 9:30 AM CDT Plan of Treatment Health Maintenance Due Date Last Done Comments Albumin Creatinine Ratio, Urine 1964 Colon Cancer Screening-Colonoscopy 1964 Depression Screening 1964 Hepatitis C Screening 1964 Prostate Cancer Screening-PSA 1964 Dilated Eye Exam 1964 Foot Exam 1964 DTaP/Tdap/Td Vaccine (1 - Tdap) 1975 Hepatitis B Screening 1982 Regular Well Visit/Exam 18-64 1982 Pneumococcal vaccine <65 (1 of 2 - PCV) 1983 Zoster Vaccine (1 of 2) 2014 Hemoglobin A1C 04/04/2022 10/02/2021 eGFR 10/08/2022 10/08/2021, 09/26, 10/06/2021, Additional history exists Influenza Vaccine (#1) 2025 05/02/2015, 2013 Lipid Panel 02/10/2026 02/10/2025, 08/29, 08/13/2023, Additional history exists Procedures Procedure Name Priority Date/Time Associated Diagnosis Comments POCT LIPID PANEL Routine 02/10/2025 9:34 AM CDT Lipid screening EGFR Routine 10/08/2021 5:29 AM CDT HEMOGLOBIN A1C Routine 10/02/2021 3:34 PM SMT TECHNICIAN from Last 3 Months or Most Recently [...] AM CDT) eGFR 110 mL/min/1. 73 m2 [facility] Comment: Interpretive Data Reference Interval Normal >/= [...] 5:29 AM CDT 10/08/2021 5:29 AM CDT us Vanda MCCAULEY LAB BLOOD ORDERABLES Final R esult [facility] [address] [place] [address] * (ABNORMAL) Hemoglobin A1c (10/02/2021 3:34 PM SMT TECHNICIAN) Hgb A1C 7.7(H) 4.0 - 5.6 % [facility] Estimated Average Glucose 174 mg/dL [facility] Comment: The ADA recommends reporting an estimated Average Glucose (eAG) with all Hemoglobin A1c results using the equation derived from a study of 507 normal and diabetic adults. Minority populations were underrepresented and children were not included. (Diabetes Care 31:5833-4680, 2008). The eAG is not equivalent to a fasting glucose. Blood 10/02/2021 3:34 PM SMT TECHNICIAN 10/02/2021 3:44 PM SMT TECHNICIAN us Johnathan Glass MD LAB BLOOD ORDERABLES Final Result [facility] [address] Department [place] [address] from Last 3 Months or Most Recently Relevant to Health Maintenance Insurance ReInnervate OOS ReInnervate OOS MD2U MD MD2U MD Advance Directives For more information, please contact: [phone] * Full Code (Latest Code Status on File) Date Activated Date Inactivated Comments 09/27/2021 6:46 AM 10/09/2021 4:44 PM Care Teams Sales And Operations Trainee Relationship Specialty Start Date End Date Rafaela Ortiz MD [address] [id number] PCP - General Internal Medicine 02/11/24 Anoop Jackson MD [address] [address] Referring Physician Cardiology 10/03/21
--- OUTSIDE RECORDS SUMMARY | 2025-02-10 10:14 | XMS_ITS | Data Portability ---
Author Organization [place] - [facility] [employer], Main Office Address [address] [place] [address] Care Team Providers Care Medical Technical Writer Name Role Phone EUGENIE ORTIZ Primary Care Provider EUGENIE ORTIZ Referring Provider Assessment Encounter Date Assessment Date Assessment LastModified by Organization Details LastModified Time 04/27/2024 04/27/2024 08/06/2023: A1C 8.8 Gluc 148 11/25/2023: A1C 7.5 PSA 0.54 Gluc 133 TG 161 03/16/2024: A1C 7.3 Gluc 132 TG 121, LDL 74 Not available 04/25/2024 11:42:46 08/20/2024 08/20/2024 08/06/2023: A1C 8.8 Gluc 148 11/25/2023: A1C 7.5 PSA 0.54 Gluc 133 TG 161 03/16/2024: A1C 7.3 Gluc 132 TG 121, LDL 74 08/17/2024: A1C 7.4 Gluc 139, BUN 21 Not available 08/20/2024 09:32:00 11/19/2024 11/19/2024 08/06/2023: A1C 8.8 Gluc 148 11/25/2023: A1C 7.5 PSA 0.54 Gluc 133 TG 161 03/16/2024: A1C 7.3 Gluc 132 TG 121, LDL 74 08/17/2024: A1C 7.4 Gluc 139, BUN 21 11/17/2024: A1C 7.8 Gluc 193, ALT 62 TG 383 Not available 11/19/2024 09:34:28 Plan of Treatment Reminders Order Date Submit Date Provider Last Modified By Organization Details Last Modified Time Details Appointments Any 15 2024 08:45A M Eugenie phan MD Not available Not available Not available Lab glycohem oglobin, total, blood [address] (Lab), [address] [place], [address], 11/19/2024 09:45:08 microalb umin, urine [address] (Lab), [address] [place], [address], 11/19/2024 09:45:08 lipid panel, serum [address] (Lab), [address] [place], [address], 11/19/2024 09:45:07 TSH, serum or plasma [address] (Lab), [address] [place], [address], 11/19/2024 09:45:07 CBC w/ auto diff [address] (Lab), [address] [place], [address], 11/19/2024 09:45:07 CMP, serum or plasma [address] (Lab), [address] [place], [address], 11/19/2024 09:45:07 glycohem oglobin, total, blood [facility]24 [facility] [address] [place], [address], 11/17/2024 19:04:15 microalb umin, urine 2024 025 [facility] (Lab), [address] [place], [address], 11/17/2024 17:52:01 lipid panel, serum 2024 025 [facility] (Lab), [address] [place], [address], 11/17/2024 17:52:38 TSH, serum or plasma 2024 025 [facility] (Lab), [address] [place], [address], 11/17/2024 17:53:18 CBC w/ auto diff 2024 025 [facility] (Lab), [address] [place], [address], 11/17/2024 17:25:09 CMP, serum or plasma 2024 025 [facility] (Lab), [address] [place], [address], 11/17/2024 17:52:42 glycohem oglobin, total, blood 2023 024 [facility] (Lab), [address] [place], [address], 08/17/2024 12:28:09 microalb umin, urine 2023 024 [facility] (Lab), [address] [place], [address], 08/17/2024 12:05:30 lipid panel, serum 2023 024 [facility] (Lab), [address] [place], [address], 08/17/2024 11:52:44 TSH, serum or plasma 2023 024 [facility] (Lab), [address] [place], [address], 08/17/2024 12:18:45 CBC w/ auto diff 2023 024 [facility] (Lab), [address] [place], [address], 08/17/2024 11:56:44 CMP, serum or plasma 2023 024 [facility] (Lab), [address] [place], [address], 08/17/2024 11:52:[address] referral - Please call patient to schedule an appointm ent. Thank you. 2024 025 ABIMAEL HOUSTONM, [address] [facility], [facility], [place], [address], 11/19/2024 14:21:[address] referral 2024 025 [email or web address] Obed HOUSTONM, [address] [facility], [facility], [place], [address], 09/08/2024 17:16:[address] referral 2023 024 [email or web address] Obed Petersen DPM, [address] [facility], [facility], [place], [address], 10/26/2024 09:07:11 Procedures colonosc opy screenin g (PROC) - No auth required . Please call patient to schedule an appointm ent. Thank you. 2024 025 WILLA Louise MD, [address] [facility], [address], [place], [address], 11/19/2024 11:40:56 colonosc opy screenin g (PROC) - No auth required . Please call patient to schedule an appointm ent. Thank you. 2024 025 [email or web address] Geo Louise MD, [address] [facility], [facility], [place], [address], 12/16/2024 08:51:30 colonosc opy screenin g (PROC) - No auth required 2023 024 [email or web address] Michelle Fletcher MD, [address] [facility], [facility], [place], [address], 10/26/2024 09:15:44 Surgeries None recorded . Imaging LDCT, chest, for lung cancer screenin g [address] ([facility]), [address] [place], [address], 11/19/2024 14:44:24 LDCT, chest, for lung cancer screenin g [address] ([facility]), [address] [place], [address], 11/03/2024 16:14:58 LDCT, chest, for lung cancer screenin g - no auth required [address] (Radiology), [address] [place], [address], 08/24/2024 10:53:11 Medication Orders Diflucan 200 mg tablet 2024 025 [id number], [address] [place], [place], [id number], 09/01/2024 13:55:46 amoxicil ty 875 mg-potas sium clavulan ate 125 mg tablet 2023 024 [id number], [address], [place], [place], [id number], 08/20/2024 09:17:35 Diflucan 200 mg tablet 2023 [id number], [address], [place], [place], [id number], 04/20/2024 15:58:53 Patient TargetsNo targets recorded. Patient Instructions Encounter Date Encounter Id Patient Instructions Last Modified By Organization Details Last Modified Time 08/20/2024 [id number] diabetic eye exam* [email or web address] Not available 08/20/2024 09:37:18 11/19/2024 [id number] diabetic eye exam* Not available 11/19/2024 09:45:23 Reason for Referral Production Grip Referral for Type 2 diabetes mellitus without complication Referring Physician: Eugenie Ortiz Internal Medicine, Encounter Date: 04/27/2024 Production Grip Referral for Type 2 diabetes mellitus without complication Referring Physician: Eugenie Ortiz Internal Medicine, Encounter Date: 08/20/2024 Production Grip Referral for Type 2 diabetes mellitus without complication Please call patient to schedule an appointment. Thank you. Referring Physician: Eugenie Ortiz Internal Medicine, Encounter Date: 11/19/2024 Results Created Date Observation Date Name Description Value Unit Range Abnormal Flag Note LastModifiedBy Organization Detail LastModifiedTime 03/16/2003/16/2024 CBC/C OMPLE TE BLD COUNT W/DIF F white blood cells 6.8 x10'3 /uL 4.2-10 .8 Not Available [facility] (Lab) [address] [place], [address], 03/16/2024 11:36:58 03/16/2003/16/2024 CBC/C OMPLE TE BLD COUNT W/DIF F red blood cells 5.79 x10'6 /uL 4.10-5 .80 Not Available [facility] (Lab) [address] [place], [address], 03/16/2024 11:36:58 03/16/20 24 03/16/2024 CBC/C OMPLE TE BLD COUNT W/DIF F hemoglobin 16.1 g/dL 13.2-1 7.0 Not Available [facility] (Lab) [address] [place], [address], 03/16/2024 11:36:58 03/16/20 24 03/16/2024 CBC/C OMPLE TE BLD COUNT W/DIF F hematocrit 49.2 % 39.3-5 0.0 Not Available [facility] (Lab) [address] [place], [address], 03/16/2024 11:36:58 03/16/20 24 03/16/2024 CBC/C OMPLE TE BLD COUNT W/DIF F mean red cell volume 85.0 fL 80.0-9 7.0 Not Available [facility] (Lab) [address] [place], [address], 03/16/2024 11:36:58 03/16/20 24 03/16/2024 CBC/C OMPLE TE BLD COUNT W/DIF F mean red cell hemoglobin 27.8 pg 27.0-3 3.0 Not Available [facility] (Lab) [address] [place], [address], 03/16/2024 11:36:58 03/16/20 24 03/16/2024 CBC/C OMPLE TE BLD COUNT W/DIF F mean RBC HGB concentratio n 32.7 g/dL 31.0-3 6.0 Not Available [facility] (Lab) [address] [place], [address], 03/16/2024 11:36:58 03/16/20 24 03/16/2024 CBC/C OMPLE TE BLD COUNT W/DIF F red cell distribution width 14.5 % 11.8-1 5.5 Not Available [facility] (Lab) [address] [place], [address], 03/16/2024 11:36:58 03/16/20 24 03/16/2024 CBC/C OMPLE TE BLD COUNT W/DIF F platelets 255 x10'3 /uL 150-40 0 Not Available [facility] (Lab) [address] [place], [address], 03/16/2024 11:36:58 03/16/20 24 03/16/2024 CBC/C OMPLE TE BLD COUNT W/DIF F mean platelet volume 9.9 fL 9.0-12 .4 Not Available [facility] (Lab) [address] [place], [address], 03/16/2024 11:36:58 03/16/20 24 03/16/2024 CBC/C OMPLE TE BLD COUNT W/DIF F neutrophils 60.6 % 39.0-7 2.0 Not Available [facility] (Lab) [address] [place], [address], 03/16/2024 11:36:58 03/16/20 24 03/16/2024 CBC/C OMPLE TE BLD COUNT W/DIF F lymphocytes 26.9 % 16.0-4 7.0 Not Available [facility] (Lab) [address] [place], [address], 03/16/2024 11:36:58 03/16/20 24 03/16/2024 CBC/C OMPLE TE BLD COUNT W/DIF F monocytes 8.6 % 5.0-12 .0 Not Available [facility] (Lab) [address] [place], [address], 03/16/2024 11:36:58 03/16/20 24 03/16/2024 CBC/C OMPLE TE BLD COUNT W/DIF F eosinophils 3.2 % 1.0-7. 0 Not Available [facility] (Lab) [address] [place], [address], 03/16/2024 11:36:58 03/16/20 24 03/16/2024 CBC/C OMPLE TE BLD COUNT W/DIF F basophils 0.4 % 0.0-2. 0 Not Available [facility] (Lab) [address] [place], [address], 03/16/2024 11:36:58 03/16/20 24 03/16/2024 CBC/C OMPLE TE BLD COUNT W/DIF F immature granulocytes 0.3 % 0.00-0 .50 Not Available [facility] (Lab) [address] [place], [address], 03/16/2024 11:36:58 03/16/20 24 03/16/2024 CBC/C OMPLE TE BLD COUNT W/DIF F neutrophils, absolute count 4.10 x10'3 /uL 1.5-8. 0 Not Available [facility] (Lab) [address] [place], [address], 03/16/2024 11:36:58 03/16/20 24 03/16/2024 CBC/C OMPLE TE BLD COUNT W/DIF F lymphocytes, absolute count 1.82 x10'3 /uL 1.07-3 .43 Not Available [facility] (Lab) [address] [place], [address], 03/16/2024 11:36:58 03/16/20 24 03/16/2024 CBC/C OMPLE TE BLD COUNT W/DIF F monocytes, absolute count 0.58 x10'3 /uL 0.29-0 .99 Not Available [facility] (Lab) [address] [place], [address], 03/16/2024 11:36:58 03/16/20 24 03/16/2024 CBC/C OMPLE TE BLD COUNT W/DIF F eosinophils, absolute count 0.22 x10'3 /uL 0.02-0 .53 Not Available [facility] (Lab) [address] [place], [address], 03/16/2024 11:36:58 03/16/20 24 03/16/2024 CBC/C OMPLE TE BLD COUNT W/DIF F basophils, absolute count 0.03 x10'3 /uL 0.01-0 .08 Not Available [facility] (Lab) [address] [place], [address], 03/16/2024 11:36:58 03/16/20 24 03/16/2024 CBC/C OMPLE TE BLD COUNT W/DIF F immature granulocytes ,absolute 0.02 x10'3 /uL 0.00-0 .05 Not Available [facility] (Lab) [address] [place], [address], 03/16/2024 11:36:58 03/16/20 24 03/16/2024 CBC/C OMPLE TE BLD COUNT W/DIF F nucleated red blood cells 0.0 % -0 Not Available [facility] (Lab) [address] [place], [address], 03/16/2024 11:36:58 03/16/20 24 03/16/2024 CBC/C OMPLE TE BLD COUNT W/DIF F NRBC# 0.00 x10'3 /uL Not Available [facility] (Lab) [address] [place], [address], 03/16/2024 11:36:58 03/16/20 24 03/16/2024 LIPID PANEL cholesterol 145 mg/dL 140-19 9 [facility] TAINA NSUS RECOM MENDA TION FOR LATRICE STERO L: ADULT CHILD LOW RISK: <200 <170 BORDE RLINE : <200- 239 ----- HIGH RISK: >240 >200 Not Available [facility] (Lab) [address] [place], [address], 03/16/2024 11:53:08 03/16/20 24 03/16/2024 LIPID PANEL triglyceride s 121 mg/dL 0-150 [facility] TAINA NSUS REPOR T RECOM MENDA TION FOR TRIGL YCERI ASHLEY: ADULT CHILD LOW RISK: <150 ----- BODER LINE: 150-1 99 ----- HIGH RISK: >200 ----- Not Available [facility] (Lab) [address] [place], [address], 03/16/2024 11:53:08 03/16/20 24 03/16/2024 LIPID PANEL HDL cholesterol 47 mg/dL 40- Not Available [facility] (Lab) [address] [place], [address], 03/16/2024 11:53:08 03/16/20 24 03/16/2024 LIPID PANEL LDL cholesterol, calculated 74 mg/dL 0-130 NIH TAINA NSUS REPOR T RECOM MENDA TIONS FOR LDL: ADULT CHILD LOW RISK <130 <110 (OPTI MAL LDL) <100 ----- NARENDRADE RLINE : 130-1 59 ----- HIGH RISK: >160 >130 A TRIGL YCERI DE RESUL T >400 INVAL IDATE S THE CALCU LATIO N FOR LDL FRACT IONAT ION - THE LDL RESUL T WILL NOT BE REPOR JANE. Not Available [facility] (Lab) [address] [place], [address], 03/16/2024 11:53:08 03/16/20 24 03/16/2024 COMPR EHENS PAOLA METAB OLIC PANEL sodium 136 mmol/ L 137-14 5 low Not Available [facility] (Lab) [address] [place], [address], 03/16/2024 11:53:14 03/16/20 24 03/16/2024 COMPR EHENS PAOLA METAB OLIC PANEL potassium 4.9 mmol/ L 3.5-5. 1 Not Available [facility] (Lab) [address] [place], [address], 03/16/2024 11:53:14 03/16/20 24 03/16/2024 COMPR EHENS PAOLA METAB OLIC PANEL chloride 108 mmol/ L 98-107 high Not Available [facility] (Lab) [address] [place], [address], 03/16/2024 11:53:14 03/16/20 24 03/16/2024 COMPR EHENS PAOLA METAB OLIC PANEL carbon dioxide 23 mmol/ L 22-[address] [facility] (Lab) [address] [facility] [place], [address], 03/16/2024 11:53:14 03/16/20 24 03/16/2024 COMPR EHENS PAOLA METAB OLIC PANEL anion gap 9.9 mmol/ L 14-[address] [facility] (Lab) [address] [place], [address], 03/16/2024 11:53:14 03/16/20 24 03/16/2024 COMPR EHENS PAOLA METAB OLIC PANEL glucose 132 mg/dL 70-[address] [facility] (Lab) [address] [place], [address], 03/16/2024 11:53:14 03/16/20 24 03/16/2024 COMPR EHENS PAOLA METAB OLIC PANEL BUN 18 mg/dL 8-[address] [facility] (Lab) [address] [place], [address], 03/16/2024 11:53:14 03/16/20 24 03/16/2024 COMPR EHENS PAOLA METAB OLIC PANEL creatinine 0.82 mg/dL 0.66-1 .25 Not Available [facility] (Lab) [address] [place], [address], 03/16/2024 11:53:14 03/16/20 24 03/16/2024 COMPR EHENS PAOLA METAB OLIC PANEL GFR >60 Refer ence Range : [place] [facility] GFR Healt hy Adult : >60 mL/mi n/1.7 3 m2 Chron ic Kidne y Disea se: 15-60 mL/mi n/1.7 3 m2 Kidne y Failu re: <15/m L/min /1.73 m2 www.n iddk. nih.g ov The MDRD study equat ion has not been valid ated in child richmond <18 years of age; pregn ant women ; the elder ly >85 years of age; or in some racia l or ethni c subgr oups, such as Hispa nics. Outsi de the valid ated dell eters , estim ated GFR is less accur ate, requi ring clini nikky judgm ent on a case- by-ca se basis . Clini nikky inter preta tion for other races and ages must be made by the clini mely. The MDRD study equat ion has not been valid ated for the evalu ation of serum creat inine relat ed to nutri claudia l statu s or medic ation usage . For perso ns <18 years of age, a pedia tric GFR calcu lator is avail able on the [facility] websi te: https :[email or web address] [email or web address] [email or web address] andersonal s/kdo qi/gf r_cal culat or Not Available [facility] (Lab) [address] [place], [address], 03/16/2024 11:53:14 03/16/20 24 03/16/2024 COMPR EHENS PAOLA METAB OLIC PANEL alkaline phosphatase 70 U/L 38-126 Not Available [facility] (Lab) [address] [place], [address], 03/16/2024 11:53:14 03/16/20 24 03/16/2024 COMPR EHENS PAOLA METAB OLIC PANEL alanine aminotransfe rase 48 U/L 0-50 Not Available [facility] (Lab) [address] [place], [address], 03/16/2024 11:53:14 03/16/20 24 03/16/2024 COMPR EHENS PAOLA METAB OLIC PANEL aspartate aminotransfe rase 35 U/L 15-46 Not Available [facility] (Lab) [address] [place], [address], 03/16/2024 11:53:14 03/16/20 24 03/16/2024 COMPR EHENS PAOLA METAB OLIC PANEL bilirubin, total 0.80 mg/dL 0.20-1 .30 Not Available [facility] (Lab) [address] [place], [address], 03/16/2024 11:53:14 03/16/20 24 03/16/2024 COMPR EHENS PAOLA METAB OLIC PANEL calcium 9.8 mg/dL 8.4-10 .2 Not Available [facility] (Lab) [address] [place], [address], 03/16/2024 11:53:14 03/16/20 24 03/16/2024 COMPR EHENS PAOLA METAB OLIC PANEL total protein 6.9 g/dL 6.3-8. 2 Not Available [facility] (Lab) [address] [place], [address], 03/16/2024 11:53:14 03/16/20 24 03/16/2024 COMPR EHENS PAOLA METAB OLIC PANEL albumin 4.3 g/dL 3.4-5. 0 Not Available [facility] (Lab) [address] [place], [address], 03/16/2024 11:53:14 03/16/20 24 03/16/2024 COMPR EHENS PAOLA METAB OLIC PANEL globulin 2.6 g/dL 2.6-4. 2 Not Available [facility] (Lab) [address] [place], [address], 03/16/2024 11:53:14 03/16/20 24 03/16/2024 COMPR EHENS PAOLA METAB OLIC PANEL A/G ratio 1.7 ratio 1.0-2. 0 Not Available [facility] (Lab) [address] [place], [address], 03/16/2024 11:53:14 03/16/20 24 03/16/2024 TSH W/REF CIARAN FT4 TSH with reflex free T4 1.470 uIU/m L 0.465- 4.680 Not Available [facility] (Lab) [address] [place], [address], 03/16/2024 12:23:42 03/16/20 24 03/16/2024 HEMOG LOBIN A1C HA1C 7.3 % 4.0-6. 0 high Diabe fei Scree dwain Crite edison: <5.7% Consi stent with absen ce of diabe fei 5.7-6 .4% Consi stent with incre ased risk for diabe fei (pred iabet es) >OR=6 .5% Consi stent with diabe fei REFER ENCE: Diabe fei Care 2016, 39(Yi ppl.1 ):s13 -s22 Not Available [facility] (Lab) [address] [place], [address], 03/16/2024 12:30:03 03/16/20 24 03/16/2024 MICRO ALBUM IN RANDO M URINE microalbumin , urine 7.4 mg/L 0.0-16 .6 Not Available [facility] (Lab) [address] [place], [address], 03/16/2024 12:33:37 08/17/19 25 08/17/2024 LIPID PANEL cholesterol 158 mg/dL 140-19 9 [facility] TAINA NSUS RECOM MENDA TION FOR LATRICE STERO L: ADULT CHILD LOW RISK: <200 <170 BORDE RLINE : <200- 239 ----- HIGH RISK: >240 >200 Not Available [facility] (Lab) [address] [place], [address], 08/17/2024 11:52:44 08/17/19 25 08/17/2024 LIPID PANEL triglyceride s 126 mg/dL 0-150 NIH TAINA NSUS REPOR T RECOM MENDA TION FOR TRIGL YCERI ASHLEY: ADULT CHILD LOW RISK: <150 ----- BODER LINE: 150-1 99 ----- HIGH RISK: >200 ----- Not Available [facility] (Lab) [address] [place], [address], 08/17/2024 11:52:44 08/17/19 25 08/17/2024 LIPID PANEL HDL cholesterol 51 mg/dL 40- Not Available [facility] (Lab) [address] [place], [address], 08/17/2024 11:52:44 08/17/19 25 08/17/2024 LIPID PANEL LDL cholesterol, calculated 82 mg/dL 0-130 [facility] TAINA NSUS REPOR T RECOM MENDA TIONS FOR LDL: ADULT CHILD LOW RISK <130 <110 (OPTI MAL LDL) <100 ----- CANDIDO RLINE : 130-1 59 ----- HIGH RISK: >160 >130 A TRIGL YCERI DE RESUL T >400 INVAL IDATE S THE CALCU LATIO N FOR LDL FRACT IONAT ION - THE LDL RESUL T WILL NOT BE REPOR JANE. Not Available [facility] (Lab) [address] [place], [address], 08/17/2024 11:52:44 08/17/19 25 08/17/2024 COMPR EHENS PAOLA METAB OLIC PANEL sodium 137 mmol/ L 137-14 5 Not Available [facility] (Lab) [address] [place], [address], 08/17/2024 11:52:50 08/17/19 25 08/17/2024 COMPR EHENS PAOLA METAB OLIC PANEL potassium 4.8 mmol/ L 3.5-5. 1 Not Available [facility] (Lab) [address] [place], [address], 08/17/2024 11:52:50 08/17/19 25 08/17/2024 COMPR EHENS PAOLA METAB OLIC PANEL chloride 106 mmol/ L 98-107 Not Available [facility] (Lab) [address] [facility] [place], [address], 08/17/2024 11:52:50 08/17/19 25 08/17/2024 COMPR EHENS PAOLA METAB OLIC PANEL carbon dioxide 26 mmol/ L 22-30 Not Available [facility] (Lab) [address] [place], [address], 08/17/2024 11:52:50 08/17/19 25 08/17/2024 COMPR EHENS PAOLA METAB OLIC PANEL anion gap 9.8 mmol/ L 14-[address] [facility] (Lab) [address] [place], [address], 08/17/2024 11:52:50 08/17/19 25 08/17/2024 COMPR EHENS PAOLA METAB OLIC PANEL glucose 139 mg/dL 70-99 high Not Available [facility] (Lab) [address] [place], [address], 08/17/2024 11:52:50 08/17/19 25 08/17/2024 COMPR EHENS PAOLA METAB OLIC PANEL BUN 21 mg/dL 8-[address] [facility] (Lab) [address] [place], [address], 08/17/2024 11:52:50 08/17/19 25 08/17/2024 COMPR EHENS PAOLA METAB OLIC PANEL creatinine 0.84 mg/dL 0.66-1 .25 Not Available [facility] (Lab) [address] [place], [address], 08/17/2024 11:52:50 08/17/19 25 08/17/2024 COMPR EHENS PAOLA METAB OLIC PANEL GFR >60 Refer ence Range : [place] [facility] GFR Healt hy Adult : >60 mL/mi n/1.7 3 m2 Chron ic Kidne y Disea se: 15-60 mL/mi n/1.7 3 m2 Kidne y Failu re: <15/m L/min /1.73 m2 www.n iddk. nih.g ov The MDRD study equat ion has not been valid ated in child [place] <18 years of age; pregn ant women ; the elder ly >85 years of age; or in some racia l or ethni c subgr oups, such as Hispa nics. Outsi de the valid ated dell eters , estim ated GFR is less accur ate, requi ring clini nikky judgm ent on a case- by-ca se basis . Clini nikky inter preta tion for other races and ages must be made by the clini mely. The MDRD study equat ion has not been valid ated for the evalu ation of serum creat inine relat ed to nutri claudia l statu s or medic ation usage . For perso ns <18 years of age, a pedia tric GFR calcu lator is avail able on the [facility] websi te: https :[email or web address] [email or web address] dodd/[email or web address] andersonal s/nghiao qi/gf r_cal culat or Not Available [facility] (Lab) [address] [place], [address], 08/17/2024 11:52:50 08/17/19 25 08/17/2024 COMPR EHENS PAOLA METAB OLIC PANEL alkaline phosphatase 65 U/L 38-126 Not Available [facility] (Lab) [address] [place], [address], 08/17/2024 11:52:50 08/17/19 25 08/17/2024 COMPR EHENS PAOLA METAB OLIC PANEL alanine aminotransfe rase 48 U/L 0-50 Not Available [facility] (Lab) [address] [place], [address], 08/17/2024 11:52:50 08/17/19 25 08/17/2024 COMPR EHENS PAOLA METAB OLIC PANEL aspartate aminotransfe rase 37 U/L 15-46 Not Available [facility] (Lab) [address] [place], [address], 08/17/2024 11:52:50 08/17/19 25 08/17/2024 COMPR EHENS PAOLA METAB OLIC PANEL bilirubin, total 0.90 mg/dL 0.20-1 .30 Not Available [facility] (Lab) [address] [place], [address], 08/17/2024 11:52:50 08/17/19 25 08/17/2024 COMPR EHENS PAOLA METAB OLIC PANEL calcium 10.1 mg/dL 8.4-10 .2 Not Available [facility] (Lab) [address] [place], [address], 08/17/2024 11:52:50 08/17/19 25 08/17/2024 COMPR EHENS PAOLA METAB OLIC PANEL total protein 7.0 g/dL 6.3-8. 2 Not Available [facility] (Lab) [address] [place], [address], 08/17/2024 11:52:50 08/17/19 25 08/17/2024 COMPR EHENS PAOLA METAB OLIC PANEL albumin 4.5 g/dL 3.4-5. 0 Not Available [facility] (Lab) [address] [place], [address], 08/17/2024 11:52:50 08/17/19 25 08/17/2024 COMPR EHENS PAOLA METAB OLIC PANEL globulin 2.5 g/dL 2.6-4. 2 low Not Available [facility] (Lab) [address] [place], [address], 08/17/2024 11:52:50 08/17/19 25 08/17/2024 COMPR EHENS PAOLA METAB OLIC PANEL A/G ratio 1.8 ratio 1.0-2. 0 Not Available [facility] (Lab) [address] [place], [address], 08/17/2024 11:52:50 08/17/19 25 08/17/2024 CBC/C OMPLE TE BLD COUNT W/DIF F white blood cells 7.2 x10'3 /uL 4.2-10 .8 Not Available [facility] (Lab) [address] [place], [address], 08/17/2024 11:56:43 08/17/19 25 08/17/2024 CBC/C OMPLE TE BLD COUNT W/DIF F red blood cells 5.71 x10'6 /uL 4.10-5 .80 Not Available [facility] (Lab) [address] [place], [address], 08/17/2024 11:56:43 08/17/19 25 08/17/2024 CBC/C OMPLE TE BLD COUNT W/DIF F hemoglobin 15.8 g/dL 13.2-1 7.0 Not Available [facility] (Lab) [address] [place], [address], 08/17/2024 11:56:43 08/17/19 25 08/17/2024 CBC/C OMPLE TE BLD COUNT W/DIF F hematocrit 48.4 % 39.3-5 0.0 Not Available [facility] (Lab) [address] [place], [address], 08/17/2024 11:56:43 08/17/19 25 08/17/2024 CBC/C OMPLE TE BLD COUNT W/DIF F mean red cell volume 84.8 fL 80.0-9 7.0 Not Available [facility] (Lab) [address] [place], [address], 08/17/2024 11:56:43 08/17/19 25 08/17/2024 CBC/C OMPLE TE BLD COUNT W/DIF F mean red cell hemoglobin 27.7 pg 27.0-3 3.0 Not Available [facility] (Lab) [address] [place], [address], 08/17/2024 11:56:43 08/17/19 25 08/17/2024 CBC/C OMPLE TE BLD COUNT W/DIF F mean RBC HGB concentratio n 32.6 g/dL 31.0-3 6.0 Not Available [facility] (Lab) [address] [place], [address], 08/17/2024 11:56:43 08/17/19 25 08/17/2024 CBC/C OMPLE TE BLD COUNT W/DIF F red cell distribution width 14.6 % 11.8-[address] [facility] (Lab) [address] [place], [address], 08/17/2024 11:56:43 08/17/19 25 08/17/2024 CBC/C OMPLE TE BLD COUNT W/DIF F platelets 238 x10'3 /uL 150-40 0 Not Available [facility] (Lab) [address] [place], [address], 08/17/2024 11:56:43 08/17/19 25 08/17/2024 CBC/C OMPLE TE BLD COUNT W/DIF F mean platelet volume 10.2 fL 9.0-12 .4 Not Available [facility] (Lab) [address] [place], [address], 08/17/2024 11:56:43 08/17/19 25 08/17/2024 CBC/C OMPLE TE BLD COUNT W/DIF F neutrophils 67.1 % 39.0-7 2.0 Not Available [facility] (Lab) [address] [place], [address], 08/17/2024 11:56:43 08/17/19 25 08/17/2024 CBC/C OMPLE TE BLD COUNT W/DIF F lymphocytes 22.4 % 16.0-4 7.0 Not Available [facility] (Lab) [address] [place], [address], 08/17/2024 11:56:43 08/17/19 25 08/17/2024 CBC/C OMPLE TE BLD COUNT W/DIF F monocytes 6.9 % 5.0-12 .0 Not Available [facility] (Lab) [address] [place], [address], 08/17/2024 11:56:43 08/17/19 25 08/17/2024 CBC/C OMPLE TE BLD COUNT W/DIF F eosinophils 2.6 % 1.0-7. 0 Not Available [facility] (Lab) [address] [place], [address], 08/17/2024 11:56:43 08/17/19 25 08/17/2024 CBC/C OMPLE TE BLD COUNT W/DIF F basophils 0.6 % 0.0-2. 0 Not Available [facility] (Lab) [address] [place], [address], 08/17/2024 11:56:43 08/17/19 25 08/17/2024 CBC/C OMPLE TE BLD COUNT W/DIF F immature granulocytes 0.4 % 0.00-0 .50 Not Available [facility] (Lab) [address] [place], [address], 08/17/2024 11:56:43 08/17/19 25 08/17/2024 CBC/C OMPLE TE BLD COUNT W/DIF F neutrophils, absolute count 4.84 x10'3 /uL 1.5-8. 0 Not Available [facility] (Lab) [address] [place], [address], 08/17/2024 11:56:43 08/17/19 25 08/17/2024 CBC/C OMPLE TE BLD COUNT W/DIF F lymphocytes, absolute count 1.62 x10'3 /uL 1.07-3 .43 Not Available [facility] (Lab) [address] [place], [address], 08/17/2024 11:56:43 08/17/19 25 08/17/2024 CBC/C OMPLE TE BLD COUNT W/DIF F monocytes, absolute count 0.50 x10'3 /uL 0.29-0 .99 Not Available [facility] (Lab) [address] [place], [address], 08/17/2024 11:56:43 08/17/19 25 08/17/2024 CBC/C OMPLE TE BLD COUNT W/DIF F eosinophils, absolute count 0.19 x10'3 /uL 0.02-0 .53 Not Available [facility] (Lab) [address] [place], [address], 08/17/2024 11:56:43 08/17/19 25 08/17/2024 CBC/C OMPLE TE BLD COUNT W/DIF F basophils, absolute count 0.04 x10'3 /uL 0.01-0 .08 Not Available [facility] (Lab) [address] [place], [address], 08/17/2024 11:56:43 08/17/19 25 08/17/2024 CBC/C OMPLE TE BLD COUNT W/DIF F immature granulocytes ,absolute 0.03 x10'3 /uL 0.00-0 .05 Not Available [facility] (Lab) [address] [place], [address], 08/17/2024 11:56:43 08/17/19 25 08/17/2024 CBC/C OMPLE TE BLD COUNT W/DIF F nucleated red blood cells 0.0 % -0 Not Available [facility] (Lab) [address] [place], [address], 08/17/2024 11:56:43 08/17/19 25 08/17/2024 CBC/C OMPLE TE BLD COUNT W/DIF F NRBC# 0.00 x10'3 /uL Not Available [facility] (Lab) [address] [place], [address], 08/17/2024 11:56:43 08/17/19 25 08/17/2024 MICRO ALBUM IN RANDO M URINE microalbumin , urine 7.4 mg/L 0.0-16 .6 Not Available [facility] (Lab) [address] [place], [address], 08/17/2024 12:05:30 08/17/19 25 08/17/2024 TSH W/REF CIARAN FT4 TSH with reflex free T4 1.080 uIU/m L 0.465- 4.680 Not Available [facility] (Lab) [address] [place], [address], 08/17/2024 12:18:45 08/17/19 25 08/17/2024 HEMOG LOBIN A1C HA1C 7.4 % 4.0-6. 0 high Diabe fei Scree dwain Crite edison: <5.7% Consi stent with absen ce of diabe fei 5.7-6 .4% Consi stent with incre ased risk for diabe fei (pred iabet es) >OR=6 .5% Consi stent with diabe fei REFER ENCE: Diabe fei Care 2016, 39(Yi ppl.1 ):s13 -s22 Not Available [facility] (Lab) [address] [place], [address], 08/17/2024 12:28:09 11/18/19 25 11/17/2024 CBC/C OMPLE TE BLD COUNT W/DIF F white blood cells 6.5 x10'3 /uL 4.2-10 .8 Not Available [facility] (Lab) [address] [place], [address], 11/17/2024 17:25:09 11/18/19 25 11/17/2024 CBC/C OMPLE TE BLD COUNT W/DIF F red blood cells 5.70 x10'6 /uL 4.10-5 .80 Not Available [facility] (Lab) [address] [facility] [place], [address], 11/17/2024 17:25:09 11/18/19 25 11/17/2024 CBC/C OMPLE TE BLD COUNT W/DIF F hemoglobin 15.7 g/dL 13.2-1 7.0 Not Available [facility] (Lab) [address] [place], [address], 11/17/2024 17:25:09 11/18/19 25 11/17/2024 CBC/C OMPLE TE BLD COUNT W/DIF F hematocrit 47.8 % 39.3-5 0.0 Not Available [facility] (Lab) [address] [place], [address], 11/17/2024 17:25:09 11/18/19 25 11/17/2024 CBC/C OMPLE TE BLD COUNT W/DIF F mean red cell volume 83.9 fL 80.0-9 7.0 Not Available [facility] (Lab) [address] [place], [address], 11/17/2024 17:25:09 11/18/19 25 11/17/2024 CBC/C OMPLE TE BLD COUNT W/DIF F mean red cell hemoglobin 27.5 pg 27.0-3 3.0 Not Available [facility] (Lab) [address] [place], [address], 11/17/2024 17:25:09 11/18/19 25 11/17/2024 CBC/C OMPLE TE BLD COUNT W/DIF F mean RBC HGB concentratio n 32.8 g/dL 31.0-3 6.0 Not Available [facility] (Lab) [address] [place], [address], 11/17/2024 17:25:09 11/18/19 25 11/17/2024 CBC/C OMPLE TE BLD COUNT W/DIF F red cell distribution width 14.6 % 11.8-1 5.5 Not Available [facility] (Lab) [address] [place], [address], 11/17/2024 17:25:09 11/18/19 25 11/17/2024 CBC/C OMPLE TE BLD COUNT W/DIF F platelets 252 x10'3 /uL 150-40 0 Not Available [facility] (Lab) [address] [place], [address], 11/17/2024 17:25:09 11/18/19 25 11/17/2024 CBC/C OMPLE TE BLD COUNT W/DIF F mean platelet volume 10.1 fL 9.0-12 .4 Not Available [facility] (Lab) [address] [place], [address], 11/17/2024 17:25:09 11/18/19 25 11/17/2024 CBC/C OMPLE TE BLD COUNT W/DIF F neutrophils 54.7 % 39.0-7 2.0 Not Available [facility] (Lab) [address] [place], [address], 11/17/2024 17:25:09 11/18/19 25 11/17/2024 CBC/C OMPLE TE BLD COUNT W/DIF F lymphocytes 31.5 % 16.0-4 7.0 Not Available [facility] (Lab) [address] [place], [address], 11/17/2024 17:25:09 11/18/19 25 11/17/2024 CBC/C OMPLE TE BLD COUNT W/DIF F monocytes 8.6 % 5.0-12 .0 Not Available [facility] (Lab) [address] [place], [address], 11/17/2024 17:25:09 11/18/19 25 11/17/2024 CBC/C OMPLE TE BLD COUNT W/DIF F eosinophils 4.3 % 1.0-7. 0 Not Available [facility] (Lab) [address] [place], [address], 11/17/2024 17:25:09 11/18/19 25 11/17/2024 CBC/C OMPLE TE BLD COUNT W/DIF F basophils 0.6 % 0.0-2. 0 Not Available [facility] (Lab) [address] [place], [address], 11/17/2024 17:25:09 11/18/19 25 11/17/2024 CBC/C OMPLE TE BLD COUNT W/DIF F immature granulocytes 0.3 % 0.00-0 .50 Not Available [facility] (Lab) [address] [place], [address], 11/17/2024 17:25:09 11/18/19 25 11/17/2024 CBC/C OMPLE TE BLD COUNT W/DIF F neutrophils, absolute count 3.57 x10'3 /uL 1.5-8. 0 Not Available [facility] (Lab) [address] [place], [address], 11/17/2024 17:25:09 11/18/19 25 11/17/2024 CBC/C OMPLE TE BLD COUNT W/DIF F lymphocytes, absolute count 2.06 x10'3 /uL 1.07-3 .43 Not Available [facility] (Lab) [address] [place], [address], 11/17/2024 17:25:09 11/18/19 25 11/17/2024 CBC/C OMPLE TE BLD COUNT W/DIF F monocytes, absolute count 0.56 x10'3 /uL 0.29-0 .99 Not Available [facility] (Lab) [address] [place], [address], 11/17/2024 17:25:09 11/18/19 25 11/17/2024 CBC/C OMPLE TE BLD COUNT W/DIF F eosinophils, absolute count 0.28 x10'3 /uL 0.02-0 .53 Not Available [facility] (Lab) [address] [place], [address], 11/17/2024 17:25:09 11/18/19 25 11/17/2024 CBC/C OMPLE TE BLD COUNT W/DIF F basophils, absolute count 0.04 x10'3 /uL 0.01-0 .08 Not Available [facility] (Lab) [address] [place], [address], 11/17/2024 17:25:09 11/18/19 25 11/17/2024 CBC/C OMPLE TE BLD COUNT W/DIF F immature granulocytes ,absolute 0.02 x10'3 /uL 0.00-0 .05 Not Available [facility] (Lab) [address] [place], [address], 11/17/2024 17:25:09 11/18/19 25 11/17/2024 CBC/C OMPLE TE BLD COUNT W/DIF F nucleated red blood cells 0.0 % -0 Not Available [facility] (Lab) [address] [place], [address], 11/17/2024 17:25:09 11/18/19 25 11/17/2024 CBC/C OMPLE TE BLD COUNT W/DIF F NRBC# 0.00 x10'3 /uL Not Available [facility] (Lab) [address] [place], [address], 11/17/2024 17:25:09 11/18/1911/17/2024 MICRO ALBUM IN RANDO M URINE microalbumin , urine <6.0 mg/L 0.0-16 .6 Not Available [facility] (Lab) [address] [place], [address], 11/17/2024 17:52:01 11/18/1911/17/2024 LIPID PANEL cholesterol 166 mg/dL 140-19 9 NIH TAINA NSUS RECOM MENDA TION FOR LATRICE STERO L: ADULT CHILD LOW RISK: <200 <170 BORDE RLINE : <200- 239 ----- HIGH RISK: >240 >200 Not Available [facility] (Lab) [address] [place], [address], 11/17/2024 17:52:38 11/18/19 25 11/17/2024 LIPID PANEL triglyceride s 383 mg/dL 0-150 high NIH TAINA NSUS REPOR T RECOM MENDA TION FOR TRIGL YCERI ASHLEY: ADULT CHILD LOW RISK: <150 ----- BODER LINE: 150-1 99 ----- HIGH RISK: >200 ----- Not Available [facility] (Lab) [address] [place], [address], 11/17/2024 17:52:38 11/18/19 25 11/17/2024 LIPID PANEL HDL cholesterol 45 mg/dL 40- Not Available [facility] (Lab) [address] [place], [address], 11/17/2024 17:52:38 11/18/19 25 11/17/2024 LIPID PANEL LDL cholesterol, calculated 44 mg/dL 0-130 NIH TAINA NSUS REPOR T RECOM MENDA TIONS FOR LDL: ADULT CHILD LOW RISK <130 <110 (OPTI MAL LDL) <100 ----- BORDE RLINE : 130-1 59 ----- HIGH RISK: >160 >130 A TRIGL YCERI DE RESUL T >400 INVAL IDATE S THE CALCU LATIO N FOR LDL FRACT IONAT ION - THE LDL RESUL T WILL NOT BE REPOR JANE. Not Available [facility] (Lab) [address] [place], [address], 11/17/2024 17:52:38 11/18/19 25 11/17/2024 COMP MET PANEL /LIVE R sodium 136 mmol/ L 137-[address] [facility] (Lab) [address] [place], [address], 11/17/2024 17:52:42 11/18/19 25 11/17/2024 COMP MET PANEL /LIVE R potassium 4.5 mmol/ L 3.5-5. [address] [facility] (Lab) [address] [place], [address], 11/17/2024 17:52:42 11/18/19 25 11/17/2024 COMP MET PANEL /LIVE R chloride 105 mmol/ L 98-[address] [facility] (Lab) [address] [place], [address], 11/17/2024 17:52:42 11/18/19 25 11/17/2024 COMP MET PANEL /LIVE R carbon dioxide 23 mmol/ L 22-[address] [facility] (Lab) [address] [place], [address], 11/17/2024 17:52:42 11/18/19 25 11/17/2024 COMP MET PANEL /LIVE R anion gap 12.5 mmol/ L 14-[address] [facility] (Lab) [address] [place], [address], 11/17/2024 17:52:42 11/18/19 25 11/17/2024 COMP MET PANEL /LIVE R glucose 193 mg/dL 70-[address] [facility] (Lab) [address] [facility] [place], [address], 11/17/2024 17:52:42 11/18/19 25 11/17/2024 COMP MET PANEL /LIVE R BUN 17 mg/dL 8-19 Not Available [facility] (Lab) [address] [place], [address], 11/17/2024 17:52:42 11/18/19 25 11/17/2024 COMP MET PANEL /LIVE R creatinine 0.78 mg/dL 0.66-1 .25 Not Available [facility] (Lab) [address] [place], [address], 11/17/2024 17:52:42 11/18/19 25 11/17/2024 COMP MET PANEL /LIVE R GFR >60 Refer ence Range : [place] ge GFR Healt hy Adult : >60 mL/mi n/1.7 3 m2 Chron ic Kidne y Disea se: 15-60 mL/mi n/1.7 3 m2 Kidne y Failu re: <15/m L/min /1.73 m2 www.n iddk. nih.g ov The MDRD study equat ion has not been valid ated in child rich[place] <18 years of age; pregn ant women ; the elder ly >85 years of age; or in some racia l or ethni c subgr oups, such as [facility] nics. Outsi de the valid ated dell eters , estim ated GFR is less accur ate, requi ring clini nikky judgm ent on a case- by-ca se basis . Clini nikky inter preta tion for other races and ages must be made by the clini mely. The MDRD study equat ion has not been valid ated for the evalu ation of serum creat inine relat ed to nutri claudia l statu s or medic ation usage . For perso ns <18 years of age, a pedia tric GFR calcu lator is avail able on the [facility] websi te: https ://santy w.suzan quintanilla.o rg/pr ofess ional s/kdo qi/gf r_cal culat or Not Available [facility] (Lab) [address] [place], [address], 11/17/2024 17:52:42 11/18/19 25 11/17/2024 COMP MET PANEL /LIVE R alkaline phosphatase 70 U/L 38-126 Not Available [facility] (Lab) [address] [place], [address], 11/17/2024 17:52:42 11/18/19 25 11/17/2024 COMP MET PANEL /LIVE R alanine aminotransfe rase 62 U/L 0-50 high Not Available [facility] (Lab) [address] [place], [address], 11/17/2024 17:52:42 11/18/19 25 11/17/2024 COMP MET PANEL /LIVE R aspartate aminotransfe rase 42 U/L 15-46 Not Available [facility] (Lab) [address] [place], [address], 11/17/2024 17:52:42 11/18/19 25 11/17/2024 COMP MET PANEL /LIVE R bilirubin, total 0.50 mg/dL 0.20-1 .30 Not Available [facility] (Lab) [address] [place], [address], 11/17/2024 17:52:42 11/18/19 25 11/17/2024 COMP MET PANEL /LIVE R bilirubin, conjugated (direct) 0.00 mg/dL 0.00-0 .30 Not Available [facility] (Lab) [address] [place], [address], 11/17/2024 17:52:42 11/18/19 25 11/17/2024 COMP MET PANEL /LIVE R biliurubin,u ncong. (indirect) 0.30 mg/dL 0.00-1 .1 Not Available [facility] (Lab) [address] [place], [address], 11/17/2024 17:52:42 11/18/19 25 11/17/2024 COMP MET PANEL /LIVE R calcium 10.0 mg/dL 8.4-[address] [facility] (Lab) [address] [place], [address], 11/17/2024 17:52:42 11/18/19 25 11/17/2024 COMP MET PANEL /LIVE R total protein 6.9 g/dL 6.3-8. [address] [facility] (Lab) [address] [place], [address], 11/17/2024 17:52:42 11/18/19 25 11/17/2024 COMP MET PANEL /LIVE R albumin 4.5 g/dL 3.4-5. [address] [facility] (Lab) [address] [place], [address], 11/17/2024 17:52:42 11/18/19 25 11/17/2024 COMP MET PANEL /LIVE R globulin 2.4 g/dL 2.6-4. 2 low Not Available [facility] (Lab) [address] [place], [address], 11/17/2024 17:52:42 11/18/19 25 11/17/2024 COMP MET PANEL /LIVE R A/G ratio 1.9 ratio 1.0-2. 0 Not Available [facility] (Lab) [address] [place], [address], 11/17/2024 17:52:42 11/18/19 25 11/17/2024 TSH W/REF CIARAN FT4 TSH with reflex free T4 1.450 uIU/m L 0.465- 4.680 Not Available [facility] (Lab) [address] [place], [address], 11/17/2024 17:53:18 11/18/19 25 11/17/2024 HEMOG LOBIN A1C HA1C 7.8 % 4.0-6. 0 high Diabe fei Scree dwain Crite edison: <5.7% Consi stent with absen ce of diabe fei 5.7-6 .4% Consi stent with incre ased risk for diabe fei (pred iabet es) >OR=6 .5% Consi stent with diabe fei REFER ENCE: Diabe fei Care 2016, 39(Yi ppl.1 ):s13 -s22 Not Available [facility] ([facility]) [address] [place], [address], 11/17/2024 19:04:15 Result Notes None recorded. Problems Name Problem SNOMED Code Status Onset Date Resolution Date Notes Provider Name and Address Organization Details Recorded Time Essential hypertens ion 82693878 Active 2022 Not Available [facility] 4 04:02:52 Paresthes ia of upper limb 77722743 Active 2022 Not Available [facility] 4 04:02:52 Carpal tunnel syndrome 96663283 Active 2022 Not Available [facility] 4 04:02:52 Bilateral wrist pain 07339749888 453712 Active 2022 Not Available [facility] 4 04:02:52 Bilateral carpal tunnel syndrome 65764934853 509152 Active 2022 Not Available [facility] 4 04:02:52 Osteoarth ritis of left hip joint 55001518875 9108 Active 2022 Not Available [facility] 4 04:02:52 Pain of left hip joint 46462364883 9100 Active 2022 Not Available [facility] 4 04:02:52 Rupture of hamstring tendon 578021787 Active 2022 Not Available [facility] 4 04:02:52 Acquired trigger finger of right middle finger 64204391821 9105 Active 2022 Not Available [facility] 4 04:02:52 Pain of right shoulder joint 07776334094 423866 Active 2023 Eugenie martínez MD [address], [address], [place], [address] , [facility] 4 10:41:38 Onychomyc osis of toenails 752990540 Active 2023 Tai Kemp, [facility] [place] [facility] 4 10:02:26 Otitis media 57961685 Active 2023 Eugenie martínez MD [address], [address], [place], [address] , [facility] 4 11:50:53 Tobacco user 131034882 Active Not Available [facility] 4 04:02:52 Contact dermatiti s caused by urushiol from [facility] brayan 849214868 Active Not Available [facility] 4 04:02:52 Osteoarth ritis of hip 475996581 Active Not Available [facility] 4 04:02:52 Low back pain 748882584 Active Not Available [facility] 4 04:02:52 Knee pain Active Not Available [facility] 4 04:02:52 Type 2 diabetes mellitus without complicat ion 217400740 Active 2021 Not Available [facility] 4 04:02:52 Sinusitis 26386381 Active 2017 Not Available [facility] 4 04:02:52 Obesity 121096802 Active 2017 Not Available [facility] 4 04:02:52 Uncontrol led type 2 diabetes mellitus 294080773 Active Not Available [facility] 4 04:02:52 Viral syndrome 067862342 Active 2017 Not Available [facility] 4 04:02:52 Pain of hip region 27227436 Active Not Available [facility] 4 04:02:52 Coronary arteriosc lerosis 96314778 Active 2021 [facility] September 2021 Not Available [facility] 4 04:02:52 Hyperlipi demia 58666534 Active Not Available [facility] 4 04:02:52 Generaliz ed rash 528713613 Active 2021 Not Available [facility] 4 04:02:52 Diabetes mellitus 85208486 Active Not Available [facility] 4 04:02:52 Problem Notes None recorded. Procedures Surgical History Date Name Laterality Status Provider Name and Address Organization Details Recorded Time 08/11/19 25 Nail Debridement completed Efrain Pickens DPM [address], [address], [place], [address], [facility] 08/13/2024 08:42:21 04/15/20 24 Nail Debridement completed Efrain Pickens DPM [address], [address], [place], [address], [facility] 04/17/2024 11:00:44 02/12/20 24 Nail Debridement completed Efrain Pickens DPM [address], [address], [place], [address], [facility] 02/12/2024 12:46:13 02/12/20 24 Callus Debridement 2-4 completed Efrain Pickens DPM [address], [address], [place], [address], [facility] 02/12/2024 12:46:22 09/27/19 23 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[employer] 02/21/2023 10:06:48 11/04/19 15 Colonoscopy completed Not Available [facility] 09/27/19 04:41:54 03/03/20 14 Total hip arthroplasty completed Not Available [facility] 09/26/2022 04:41:54 Appendectomy completed 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 Procedure Notes None recorded. Medical Equipment None Reported. Allergies No known drug allergies Medications Name Sig Start Date Stop Date Status Note LastModified by Organization Details LastModified Time carisoprodo l 350 mg tablet Take 1 tablet every day by oral route at bedtime. active Not Available Not Available No t Available cyclobenzap rine 10 mg tablet 11/10 completed Not Available Not Available Not Available amoxicillin 500 mg capsule TK FOUR CS PO 1 HOUR B DAPP 10/16 completed Not Available Not Available Not Available furosemide 40 mg tablet 12/18 completed Not Available Not Available Not Available atorvastati n 40 mg tablet take one tablet by mouth once daily active Not Available Not Available No t Available metformin 500 mg tablet Take 1 tablet(s) twice a day by oral route. 08/09 completed Not Available Not Available Not Available prednisone 10 mg tablet Take by oral route. take [id number], [id number] 04/08 completed Not Available Not Available Not Available atorvastati n 20 mg tablet take one tablet by mouth once daily 12/18 completed Not Available Not Available Not Available cetirizine 10 mg tablet 07/11 completed Not Available Not Available Not Available azithromyci n 250 mg tablet TAKE 2 TABLETS (500 MG) BY ORAL ROUTE ONCE DAILY FOR 1 DAY THEN 1 TABLET (250 MG) BY ORAL ROUTE ONCE DAILY FOR 4 DAYS 08/26 completed Not Available Not Available Not Available ibuprofen 800 mg tablet active Not Available Not Available Not Available Lidocaine Viscous 2 % mucosal solution 07/11 completed Not Available Not Available Not Available metoprolol tartrate 100 mg tablet 12/18 completed Not Available Not Available Not Available tizanidine 4 mg tablet Take 1 tablet twice a day by oral route as directed. active Not Available Not Available No t Available metoprolol succinate ER 50 mg tablet,exte nded release 24 hr TAKE 1 TABLET BY MOUTH EVERY MORNING active Not Available Not Available No t Available hydrocodone 5 mg-acetamin ophen 325 mg tablet 11/10 completed Not Available Not Available Not Available fluconazole 200 mg tablet TAKE 1 TABLET BY MOUTH EVERY WEEK active Not Available Not Available No t Available prednisone 20 mg tablet 07/11 completed Not Available Not Available Not Available clobetasol 0.05 % topical cream APPLY A THIN LAYER TO THE AFFECTED AREA(S) BY TOPICAL ROUTE 2 TIMES PER DAY active Not Available Not Available No t Available potassium chloride ER 10 mEq tablet,exte nded release 12/18 completed Not Available Not Available Not Available clopidogrel 75 mg tablet TAKE 1 TABLET BY MOUTH EVERY MORNING 12/26 completed Not Available Not Available Not Available hydrocodone 10 mg-acetamin ophen 325 mg tablet TAKE 1 TABLET BY MOUTH EVERY 4 HOURS NEEDED FOR PAIN 12/18 completed Not Available Not Available Not Available aspirin 81 mg tablet,stanton yed release TAKE 1 TABLET BY MOUTH EVERY MORNING active Not Available Not Available No t Available amoxicillin 500 mg tablet TAKE 4 TABLETS BY MOUTH 1 HOUR BEFORE APPOINTME NT 10/16 completed Not Available Not Available Not Available glimepiride 1 mg tablet TK 1 T PO QD 04/25 completed Not Available Not Available Not Available prednisone 10 mg tablets in a dose pack Take 1 tab by mouth, 3 times a day for 3 daysTake 1 tab by mouth 2 times a day for 2 daysTake 1 tab by mouth once a day for 1 day 04/08 completed Not Available Not Available Not Available potassium chloride ER 20 mEq tablet,exte nded release(par t/cryst) 12/18 completed Not Available Not Available Not Available famotidine 20 mg tablet TK 1 T PO D 11/10 completed Not Available Not Available Not Available tamsulosin 0.4 mg capsule 11/10 completed Not Available Not Available Not Available [place] Ultra Test strips USE TO TEST BLOOD SUGAR TWICE DAILY 02/09 completed Not Available Not Available Not Available hydrocodone 7.5 mg-acetamin ophen 325 mg tablet TAKE 1 TABLET BY MOUTH EVERY 4 HOURS NEEDED FOR PAIN 10/16 completed Not Available Not Available Not Available econazole nitrate 1 % topical cream APPLY TO THE AFFECTED AREA TWICE DAILY UNTIL FOLLOW UP IN 4 WEEKS 05/21 completed Not Available Not Available Not Available cephalexin 500 mg capsule TAKE 1 CAPSULE BY MOUTH EVERY 8 HOURS 10/16 completed Not Available Not Available Not Available metformin 1,000 mg tablet TAKE 1 TABLET TWICE A DAY 2024 active Not Available Not Available Not Avai lable polymyxin B sulfate 10,000 unit-trimet hoprim 1 mg/mL eye drops 10/02 completed Not Available Not Available Not Available cephalexin 500 mg tablet TAKE 1 TABLET BY MOUTH FOUR TIMES DAILY FOR 7 DAYS 01/26 completed Not Available Not Available Not Available etodolac 400 mg tablet Take 1 tablet twice a day by oral route for 30 days. active Not Available Not Available No t Available montelukast 10 mg tablet Take 1 tablet every day by oral route. 03/22 completed Not Available Not Available Not Available pravastatin 20 mg tablet TAKE 1 TABLET DAILY active Not Available Not Available No t Available furosemide 20 mg tablet 12/18 completed Not Available Not Available Not Available Viagra 100 mg tablet TAKE 1 TABLET BY MOUTH 1 HOUR PRIOR TO SEXUAL INTERCOUR SE active Not Available Not Available No t Available ibuprofen 600 mg tablet 11/10 completed Not Available Not Available Not Available methylpredn isolone 4 mg tablets in a dose pack TK PO DECREASIN G DOSES UTD 03/22 completed Not Available Not Available Not Available albuterol sulfate HFA 90 mcg/actuati on aerosol inhaler Inhale 2 puffs every 4 hours by inhalatio n route. active Not Available Not Available No t Available ondansetron 4 mg disintegrat ing tablet 11/10 completed Not Available Not Available Not Available fluticasone propionate 50 mcg/actuati on nasal spray,suspe nsion Estelline 1 spray every day by intranasa l route. active Not Available Not Available No t Available lisinopril 2.5 mg tablet TAKE 1 TABLET DAILY active Not Available Not Available No t Available naproxen 500 mg tablet 11/10 completed Not Available Not Available Not Available amoxicillin 875 mg-potassiu m clavulanate 125 mg tablet TAKE 1 TABLET BY MOUTH EVERY 12 HOURS FOR 7 DAYS 08/20 completed Not Available Not Available Not Available enoxaparin 40 mg/0.4 mL subcutaneou s syringe INJECT THE CONTENTS OF ONE SYRINGE SUBCUTANE OUSLY Q 24 H active Not Available Not Available No t Available potassium chloride ER 10 mEq tablet,exte nded release(par t/cryst) 12/18 completed Not Available Not Available Not Available Cialis 20 mg tablet TAKE 1 TABLET 30 MINUTES BEFORE INTERCOUR SE. NO MORE THAN 1 TABLET IN 24 HOURS active Not Available Not Available No t Available BD Ultra-Fine Mini Pen Needle 31 gauge x 3/16 USE DAILY DIRECTED BY THE PRESCRIBE R OR PACKAGE INSTRUCTI ONS active Not Available Not Available No t Available Levemir FlexPen 100 unit/mL (3 mL) solution subcutaneou s insulin pen INJECT 40 UNITS UNDER THE SKIN DAILY 10/16 completed Not Available Not Available Not Available GaviLyte-G 236 gram-22.74 gram-6.74 gram-5.86 gram oral solution MIX AND DRINK DIRECTED active Not Available Not Available No t Available Suprep Bowel Prep Kit 17.5 gram-3.13 gram-1.6 gram oral solution active Not Available Not Available Not Available OneTouch Delica Lancets 30 gauge U BID AND PRN UTD active Not Available Not Available No t Available Farxiga 10 mg tablet TAKE 1 TABLET DAILY active Not Available Not Available No t Available Farxiga 5 mg tablet Take 1 tablet every day by oral route. active Not Available Not Available No t Available Bydureon 2 mg/0.65 mL subcutaneou s pen injector INJECT 1 PEN UNDER THE SKIN ONCE EVERY 7 DAYS active Not Available Not Available No t Available Toujeo SoloStar U-300 Insulin 300 unit/mL (1.5 mL) subcutaneou s pen Inject 40 units every day by subcutane ous route for 90 days. active Not Available Not Available No t Available Bydureon BCise 2 mg/0.85 mL subcutaneou s auto-inject or INJECT THE CONTENTS OF 1 PEN UNDER THE SKIN ONCE A WEEK active Not Available Not Available No t Available Ozempic 1 mg/dose (2 mg/1.5 mL) subcutaneou s pen injector Inject 1 mg subcutane ous once weekly 02/21 completed Not Available Not Available Not Available Ozempic 0.25 mg or 0.5 mg (2 mg/1.5 mL) subcutaneou s pen injector INJECT 0.5 MG UNDER THE SKIN WEEKLY 02/21 completed Not Available Not Available Not Available OneTouch Ultra Blue Test Strip TEST BID AND PRN UTD, DX: E11.9 active Not Available Not Available No t Available OneTouch Ultra2 Meter active Not Available Not Available Not Available Ozempic 1 mg/dose (4 mg/3 mL) subcutaneou s pen injector INJECT 1 MG UNDER THE SKIN EVERY WEEK 10/16 completed Not Available Not Available Not Available Ozempic 2 mg/dose (8 mg/3 mL) subcutaneou s pen injector INJECT 2 MG UNDER THE SKIN EVERY WEEK active Not Available Not Available No t Available Vitals Date Recorded Body height Body mass index (BMI) Body weight Oxygen saturation Oxygen saturation in Arterial blood by Pulse oximetry Body temperature Heart rate Provider Name and Address Organization Details Last Updated DateTime 5 176.53 cm 37.6 kg/m2 156564. 83 g 98 % 98 % 97.8 [degF] 90 /min Tai Kemp [facility] [email or web address] [facility] 5 12:03:30 Date Recorded Body height Body mass index (BMI) Body weight Body temperature Heart rate Oxygen saturation Oxygen saturation in Arterial blood by Pulse oximetry Systolic And Diastolic Provider Name and Address Organization Details Last Updated DateTime 5 176.53 cm 38 kg/m2 846445. 61 g 97.8 [degF] 83 /min 97 % 97 % 126/68 mm[Hg] Christina Vieyra MA [facility] [employer] [facility] 5 09:28:52 Date Recorded Body height Body mass index (BMI) Body weight Body temperature Heart rate Systolic And Diastolic Provider Name and Address Organization Details Last Updated DateTime 5 176.53 cm 37.7 kg/m2 955123. 42 g 97.6 [degF] 84 /min 134/72 mm[Hg] Jessica Warren [facility] [email or web address] [facility] 5 09:32:18 Date Recorded Body height Body mass index (BMI) Body weight Oxygen saturation Oxygen saturation in Arterial blood by Pulse oximetry Body temperature Heart rate Provider Name and Address Organization Details Last Updated DateTime 4 176.53 cm 37.3 kg/m2 595980. 65 g 99 % 99 % 98.4 [degF] 88 /min Tai Kemp Shruthi [facility] [email or web address] [facility] 4 09:55:05 Date Recorded Body height Body mass index (BMI) Body weight Body temperature Heart rate Respiratory rate Oxygen saturation Oxygen saturation in Arterial blood by Pulse oximetry Systolic And Diastolic Provider Name and Address Organization Details Last Updated DateTime 4 176.53 cm 37.7 kg/m2 845080. 42 g 98.2 [degF] 97 /min 18 /min 97 % 97 % 124/72 mm[Hg] Augustus Doyle LPN [place] [facility] [place] [employer] 4 11:10:25 Social History Question Answer Notes LastModified by Organizat ion Details LastModified Time Tobacco Smoking Status Former Smoker quit 03/02/14 Not Available [employer] 09/26/2022 04:07:15 Do You Have An Advance Directive? No MIGRATION.36054 76584 Information not available 09/26/2022 Do You Wear A Helmet When Biking? Yes MIGRATION.04731 53096 Information not available 09/26/2022 What Is Your Level Of Caffeine Consumption? Occasional MIGRATION.49587 52828 Information not available 09/26/2022 How Much Tobacco Do You Chew? None MIGRATION.92318 03967 Information not available 09/26/2022 In The 14 Days Before Symptom Onset, Have You Had Close Contact With A Laboratory-confi rmed COVID-19 While That Case Was Ill? No MIGRATION.69044 90688 Information not available 09/26/2022 In The 14 Days Before Symptom Onset, Have You Had Close Contact With A Person Who Is Under Investigation For COVID-19 While That Person Was Ill? No MIGRATION.28060 80681 Information not available 09/26/2022 What Type Of Diet Are You Following? REGULAR MIGRATION.79417 53041 Information not available 09/26/2022 Which Illicit Or Recreational Drugs Have You Used? None MIGRATION.23775 27578 Information not available 09/26/2022 What Is The Highest Grade Or Level Of School You Have Completed Or The Highest Degree You Have Received? [id number] MIGRATION.08596 85048 Information not available 09/26/2022 Have There Been Any Changes To Your Family Or Social Situation? No MIGRATION.05886 02764 Information not available 09/26/2022 What Is The Fluoride Status Of Your Home? Unknown MIGRATION.61099 11791 Information not available 09/26/2022 When Did You Quit Smoking? 6-10yearssincelast cigarette MIGRATION.32803 41808 Information not available 09/26/2022 Are There Any Guns Present In Your Home? Yes MIGRATION.11702 17198 Information not available 09/26/2022 Do You Use Insect Repellent Routinely? No MIGRATION.39018 64429 Information not available 09/26/2022 Where Do You Live? [facility] MIGRATION.17018 73917 Information not available 09/26/2022 Do You Have A Medical Power Of Electrotype Molder? No MIGRATION.27208 56427 Information not available 09/26/2022 What Was The Date Of Your Most Recent Tobacco Screening? 08/20/2024 Information not available 08/20/2024 How Many Children Do You Have? 0 Information not available 08/20/2024 Have You Ever Been Counseled For Unhealthy Alcohol Use? No MIGRATION.42700 12590 Information not available 09/26/2022 Do You Have Any Pets? Yes MIGRATION.85338 97689 Information not available 09/26/2022 What Is Your Relationship Status? MIGRATION.24064 75101 Information not available 09/26/2022 Do You Use Your Seat Belt Or Car Seat Routinely? Yes MIGRATION.13114 97045 Information not available 09/26/2022 Do You Have Smoke And Carbon Monoxide Detectors In Your Home? Yes MIGRATION.08032 06545 Information not available 09/26/2022 At What Age Did You Start Smoking Tobacco? 15 [email or web address] Information not available 11/19/2024 Are You Passively Exposed To Smoke? No MIGRATION.07492 50846 Information not available 09/26/2022 Are There Any Smokers In Your House? No MIGRATION.44868 34180 Information not available 09/26/2022 How Much Tobacco Do You Smoke? No Was 1/2 Ppd MIGRATION.99927 37452 Information not available 09/26/2022 What Types Of Sporting Activities Do You Participate In? None MIGRATION.73738 14326 Information not available 09/26/2022 Do You Use Sunscreen Routinely? Yes MIGRATION.68705 97779 Information not available 09/26/2022 Has Tobacco Cessation Counseling Been Provided? No MIGRATION.47991 23919 Information not available 09/26/2022 Have You Recently Traveled Abroad? No MIGRATION.57643 24743 Information not available 09/26/2022 Do You Have Any Dietary Restrictions? No MIGRATION.53645 90483 Information not available 09/26/2022 Sex: Male Functional Status Question Answer Note LastModified by Organization Details LastModified Time Do you use any illicit or recreational drugs? No MIGRATION.0301 [id number] Information not available 09/26/2022 Do you or have you ever used any other forms of tobacco or nicotine? No MIGRATION.0301 049609 Information not available 09/26/2022 What is your level of alcohol consumption? Occasional MIGRATION.0301 571991 Information not available 09/26/2022 Do you or have you ever used smokeless tobacco? 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 Current user of electronic cigarettes occasionally Vape MIGRATION.030 580523 Information not available 09/26/2022 Mental Status Question Answer Note LastModified by Organizat ion Details LastModified Time Do you feel stressed (tense, restless, nervous, or anxious, or unable to sleep at night)? [id number] MIGRATION.[id number] Information not available 09/26/2022 Family History Relationship Description Onset Age of this Age Resolved Age Notes LastModified by Organization Details LastModified Time Father Diabetes mellitus MIGRATION.301 [id number] Not available 09/26/2022 04:41:55 Father Heart disease MIGRATION.218 [id number] Not available 09/26/2022 04:41:55 Father Cerebrovascu lar accident MIGRATION.737 [id number] Not available 09/26/2022 04:41:55 Father Family history of malignant neoplasm 80 MIGRATION.066 [id number] Not available 09/26/2022 04:41:55 Mother Heart disease MIGRATION.363 [id number] Not available 09/26/2022 04:41:55 Mother Malignant neoplastic disease throug hout body MIGRATION.761 1097378 Not available 09/26/2022 04:41:55 Mother Family history of malignant neoplasm [email or web address] Not available 2022 10:05:04 Father Hypertensive disorder [email or web address] Not available 01/26 10:11:53 Medical History Condition Response NERVE DISEASE N BLINDNESS N RHEUMATIC FEVER N KIDNEY STONES N BLADDER PROBLEMS N MRSA N OTHER # 1 N POLIO N LUNG DISEASE/DISORDER N COPD N RADIATION / CHEMOTHERAPY N Other # 2 N BLOOD DISEASES N SURGERY N EAR OR HEARING PROBLEMS N MUMPS N DEPRESSION (INCLUDING POST ) N BOWEL PROBLEMS N STROKE/TIA N ULCERS N BENIGN PROSTATIC HYPERPLASIA N MEASLES N HYPOTENSION N MYOCARDIAL INFARCTION N OBESITY Y GERD/NAUSEA N ANEURYSM N URINARY/BLADDER/KIDNEY PROBLEMS N CORONARY ARTERY DISEASE (CAD) N ADDICTION CONCERNS N Impotence Y ENDOMETRIOSIS N USE OF BLOOD THINNERS N SKIN PROBLEMS N GASTROINTESTINAL DISORDER N PERIPHERAL VASCULAR DISEASE N MUSCLE,JOINT OR BONE PROBLEMS N GASTROINTESTINAL BLEEDING N BLOOD CLOTS N ASTHMA N CATARACTS N ERECTILE DYSFUNCTION N VARICOSITIES N GI PROBLEMS N Low Testosterone N INFERTILITY N AIDS/HIV N CHEMOTHERAPY / RADIATION N LIVER DISEASE N MALE HYPOGONADISM N HYPERTENSION N Deficiency N TOURETTE'S N ANXIETY DISORDER N BLOOD TRANSFUSION N ANEMIA/BLOOD DISORDER N CHRONIC EAR INFECTIONS N BRONCHITIS N TUBERCULOSIS N GLAUCOMA N FOOT PROBLEM N DIVERTICULITIS N SLEEP APNEA N CHICKENPOX N INFECTIOUS DISEASE N PROSTATE N HEART ARRHYTHMIA N INSOMNIA N HIGH CHOLESTEROL / HYPERLIPIDEMIA Y HYPERTHYROIDISM N EYE PROBLEMS N NEUROLOGICAL PROBLEMS N EDEMA N CHRONIC PAIN SYNDROME N HYPOTHYROIDISM N CONSTIPATION N CAROTID BLOCKAGE N BACK / NECK PROBLEMS N ATHEROSCLEROSIS N BREAST PROBLEMS N DIALYSIS N ECZEMA N OSTEOPOROSIS N ARTHRITIS Y APPENDICITIS N DIABETES, TYPE Y BAD TEETH N ENT N HEARTBURN / REFLUX N AFIB N AUTISM SPECTRUM DISORDER (ASD) N HEPATITIS / LIVER DISEASE N GOUT N SLEEP DISORDER N ALZHEIMER'S DISEASE N Brain Problems N HERPES N DEMENTIA N SEIZURES/EPILEPSY N HEADACHES/MIGRAINES N VASCULAR DISEASE N PACEMAKER N Blood Disorder N DIZZINESS N KIDNEY DISEASE N HEART DISEASE/HEART PROBLEMS Y MULTIPLE SCLEROSIS N CARDIAC ARRHYTHMIA N CANCER: SPECIFY N Gall Stones N ATRIAL FIBRILLATION N PULMONARY EMBOLISM N AUTOIMMUNE DISEASE N Immunizations Vaccine Type Date Status Note Provider Nam e and Address Organization Details Recorded Time Influenza, split virus, quadrivalent, PF 5 completed Not Available [facility] 08/15/2023 04:02:53 Influenza, split virus, trivalent, preservative 4 completed TJ Clayton [place] - [facility] 11/19/2024 09:29:25 Past Encounters Encounter ID Performer Location Encounter Start Date Encounter Closed Date Diagnosis/Indication Diagnosis SNOMED-CT Code Diagnosis ICD10 Code Diagnosis Note [id number] Anoop Collins MD [facility] Internal Med [place] [address] [place] [address] 11/14/2020 00:00:00 11/20/2020 12:12:48 [id number] Anoop Collins MD [facility] Internal Med [facility] [address] [address] 06/26/2021 00:00:00 2021 22:05:01 [id number] Anoop Collins MD [facility] [address] [facility] , [facility] [place] [address] 08/08/2021 00:00:00 09/22/2021 14:43:31 [id number] Anoop Collins MD [facility] Internal [facility] 15 [address] [facility] [address] [address] 12/18/2021 00:00:00 12/25/2021 14:35:13 [id number] Anoop Collins MD [facility] Internal [facility] 15 [address] [facility] [address] [address] 01/22/2022 00:00:00 01/22/2022 22:33:06 [id number] Anoop Collins MD [facility] 15 [address] [facility] [address] [address] 05/21/2022 00:00:00 05/22/2022 17:29:26 [id number] Anoop Collins MD [facility] Internal [facility] 15 [address] [facility] [address] [address] 10/02/2022 11:46:25 10/02/2022 12:07:06 Coronary arteriosclerosis 28119746 I25.10 Diabetes mellitus 130243 09 E11.9 Hyperlipidemia 83449760 E78.5 Essential hypertension 87216265 I10 Paresthesi a of upper limb 87179287 R20.2 [id number] Varinder Antunez MD [facility] [place] [address] [place] [address] 02/21/2023 09:42:10 02/21/2023 11:29:50 Bilateral wrist pain 6229371387 7070211 M25.531 M25.532 History of total replacement of right hip joint 1426432978 54799 Z96.641 Bilateral carpal tunnel syndrome 1971915979 7052962 G56.03 Osteoarthr itis of left hip joint 2798362472 99115 M16.12 [id number] Varinder Antunez MD [facility] [place] [address] [place] [address] 03/07/2023 12:46:26 03/07/2023 13:22:06 Pain of left hip joint 5576208563 14658 M25.552 Rupture of hamstring tendon 797771271 S76.312A [id number] Varinder Antunez MD [facility] [place] [address] [place] [address] 03/21/2023 10:08:55 03/21/2023 10:50:08 Bilateral wrist pain 3558717399 7021007 M25.531 M25.532 Bilateral carpal tunnel syndrome 7175244619 3362500 G56.03 Acquired t scratcher finger of right middle finger 2462637744 40148 M65.000 [id number] Anoop Collins MD [facility] Internal [facility] [place] [address] [place] [address] [place] [address] 04/08/2023 15:04:40 04/08/2023 15:29:21 Essential hypertension 72441304 I10 Diabetes mellitus 993176 09 E11.9 Screening for malignant neoplasm of prostate 888964785 Z12.5 Coronary arteriosclerosis 60056904 I25.10 [id number] Anoop Collins MD [facility] Internal Med [place] [address] [place] [address] [place] [address] 08/12/2023 14:30:27 08/12/2023 15:32:46 Type 2 diabetes mellitus without complication 423556952 E11.9 Coronary arteriosclerosis 05090635 I25.10 Essential hypertension 86463238 I10 Hyperlipidemia 42854716 E78.5 Diabetes mellitus 555296 09 E11.9 [id number] Eugenie martínez MD [facility] Internal Med [place] [address] [facility] 15 [place] [address] 10/17/2023 09:58:58 10/17/2023 10:57:45 Screening - NAD 668469888 Z13.9 C-scope: in 2014, get this arranged Get yearly flu shot, get tdapGet shingrix vaccineCan do COVID 19 vaccine and its boosters RTC in 3 months, do labs, ER if worse Hyperlipidemia 03880673 E78.5 On ASAOn atorvastat in 40mg daily Type 2 jerod betes mellitus without complication 276496935 E11.9 On farxiga 10mg dailyOn lisinopril 2.5mg dailyOn metformin 1000mg bidOn Ozempic 2mg weekly, renewed 10/17/2023 On toujeo 40U dailyGet labs Coronary arteriosclerosis 91337604 I25.10 On ASAOn atorvastat in 40mg dailyOn lisinopril 2.5mg dailyOn metoprolol ER 50mg daily Needs to see cardiology Screening for malignant neoplasm of prostate 279455217 Z12.5 Screening for malignant neoplasm of colon 408741289 Z12.11 Ex-cigarette smoker 2810 52610 Z87.891 Quit in 381956+ year historyGet LDCT done [id number] Eugenie martínez MD [facility] [place] [address] [facility] , [facility] [place] [address] 01/27/2024 10:13:45 01/27/2024 10:45:09 Screening - NAD 370080676 Z13.9 C-scope: in 2014, get this arranged Get yearly flu shot, get tdapGet shingrix vaccineCan do COVID 19 vaccine and its boosters RTC in 3 months, do labs, ER if worse Hyperlipidemia 89340136 E78.5 On ASAOn atorvastat in 40mg daily Type 2 jerod betes mellitus without complication 100940853 E11.9 On farxiga 10mg dailyOn lisinopril 2.5mg dailyOn metformin 1000mg bidOn Ozempic 2mg weekly, renewed 10/17/2023 On toujeo 40U dailyGet labs Coronary arteriosclerosis 64575614 I25.10 On ASAOn atorvastat in 40mg dailyOn lisinopril 2.5mg dailyOn metoprolol ER 50mg daily Needs to see cardiology , last OV 08/03/2023 , f/u in [address] Jackson Screening for malignant neoplasm of colon 962038069 Z12.11 Ex-cigarette smoker 2810 39238 Z87.891 Quit in 509778+ year historyGet LDCT done Pain of ri ght shoulder joint 5202422301 0541922 M25.511 Not much pain now, was lifting a pool vaccum and felt the pain and there is now a swelling? lipomaWill refer to Dr Dillard [id number] Shaun Dillard MD [facility] [place] [address] [place] [address] 02/10/2024 09:49:56 02/10/2024 10:55:30 Pain of right shoulder joint 8927440092 3009767 M25.820 [id number] Efrain Pickens DPM [facility] [place] [address] [address] 02/12/2024 09:14:17 02/12/2024 15:47:14 Onychomycosis of toenails 897906249 B35.1 [id number] Eugenie martínez MD [facility] Internal [facility] [place] [address] [facility] , [facility] [place] [address] 04/13/2024 14:39:16 04/13/2024 15:15:56 Screening - NAD 534975966 Z13.9 C-scope: in 2014, get this arranged Get yearly flu shot, get tdapGet shingrix vaccineCan do COVID 19 vaccine and its boosters RTC in 3 months, do labs, ER if worse Hyperlipidemia 22560801 E78.5 On ASAOn atorvastat in 40mg daily Type 2 jerod betes mellitus without complication 566195388 E11.9 On farxiga 10mg dailyOn lisinopril 2.5mg dailyOn metformin 1000mg bidOn Ozempic 2mg weekly, does well with this, no MEN2/MCT or pancreatic or parathyroi d complaints , advised to hydrate and take his supplement sOn toujonathan 40U dailyGet labs Coronary arteriosclerosis 95479018 I25.10 Repeat HR after rest and 15 minutes 84/min 04/13/2024 On ASAOn atorvastat in 40mg dailyOn lisinopril 2.5mg dailyOn metoprolol ER 50mg daily Needs to see cardiology , last OV 08/03/2023 , f/u in [address] Paulo Jackson 02/11/2024 , f/u in 6 months Screening for malignant neoplasm of colon 046084799 Z12.11 Ex-cigarette smoker 2810 50735 Z87.891 Quit in 099109+ year historyGet LDCT done Pain of ri ght shoulder joint 5694921435 7979422 M25.511 Not much pain now, was lifting a pool vaccum and felt the pain and there is now a swelling? lipoma Dr Dillard: 02/10/2024 , f/u PRN [id number] Efrain Pickens DPM [facility] [place] [address] [address] 04/15/2024 09:37:54 04/28/2024 15:42:02 Onychomycosis of toenails 741514473 B35.1 [id number] Eugenie martínez MD [facility] [place] [address] [place] [address] , [facility] [place] [address] 04/27/2024 10:53:47 04/27/2024 11:57:57 Screening - NAD 836467221 Z13.9 C-scope: in 2014, get this arranged Get yearly flu shot, get tdapGet shingrix vaccineCan do COVID 19 vaccine and its boosters RTC in 3 months, do labs, ER if worse Hyperlipidemia 04316545 E78.5 On ASAOn atorvastat in 40mg daily Type 2 jerod betes mellitus without complication 173272943 E11.9 On farxiga 10mg dailyOn lisinopril 2.5mg dailyOn metformin 1000mg bidOn Ozempic 2mg weekly, does well with this, no MEN2/MCT or pancreatic or parathyroi d complaints , advised to hydrate and take his supplement sOn stiven 40U dailyGet labs Coronary arteriosclerosis 58970118 I25.10 Repeat HR after rest and 15 minutes 84/min 04/13/2024 On ASAOn atorvastat in 40mg dailyOn lisinopril 2.5mg dailyOn metoprolol ER 50mg daily Needs to see cardiology , last OV 08/03/2023 , f/u in [address] Paulo Jackson 02/11/2024 , f/u in 6 months Screening for malignant neoplasm of colon 425801637 Z12.11 Ex-cigarette smoker 2810 88767 Z87.891 Quit in 778726+ year historyGet LDCT done Pain of ri ght shoulder joint 5988350684 8755807 M25.511 Not much pain now, was lifting a pool vaccum and felt the pain and there is now a swelling? lipoma Dr Dillard: 02/10/2024 , f/u PRN Otitis media 33539179 H6 6.91 Get on augementin Notify if not better, ER if worse, may need to see ENT [id number] Efrain Pickens DPM [facility] [address] [place] [address] 08/11/2024 11:58:11 08/24/2024 14:31:15 Onychomycosis of toenails 157382014 B35.1 [id number] Eugenie martínez MD [facility] Internal Med [facility] [address] 1 08/20/2024 09:15:12 08/20/2024 09:40:53 Screening - NAD 756023605 Z13.9 C-scope: in 2014, get this arranged Get yearly flu shot, get tdapGet shingrix vaccineCan do COVID 19 vaccine and its boosters RTC in 3 months, do labs, ER if worse Hyperlipidemia 57794404 E78.5 On ASAOn atorvastat in 40mg daily Type 2 jerod betes mellitus without complication 235675220 E11.9 On farxiga 10mg dailyOn lisinopril 2.5mg dailyOn metformin 1000mg bidOn Ozempic 2mg weekly, does well with this, no MEN2/MCT or pancreatic or parathyroi d complaints , advised to hydrate and take his supplement sOn stiven 40U dailyGet labs Coronary arteriosclerosis 68957620 I25.10 Repeat HR after rest and 15 minutes 84/min 04/13/2024 On ASAOn atorvastat in 40mg dailyOn lisinopril 2.5mg dailyOn metoprolol ER 50mg daily Needs to see cardiology , last OV 08/03/2023 , f/u in [address] Paulo Jackson 02/11/2024 , f/u in 6 months Screening for malignant neoplasm of colon 525254882 Z12.11 Ex-cigarette smoker 2810 47900 Z87.891 Quit in 807077+ year historyGet LDCT done Pain of ri ght shoulder joint 1416497949 6488834 M25.511 Not much pain now, was lifting a pool vaccum and felt the pain and there is now a swelling? lipoma Dr Dillard: 02/10/2024 , f/u PRN [id number] Eugenie martínez MD [facility] [address] [facility], [place] [address] [place] [address] 11/19/2024 09:23:06 11/19/2024 09:59:20 Screening - NAD 477366700 Z13.9 C-scope: in 2014, get this arranged referred 11/19/2024 Get yearly flu shot, get tdapGet shingrix vaccineCan do COVID 19 vaccine and its boosters RTC in 3 months, do labs, ER if worse, he did verbalize his understand ing of the above Hyperlipidemia 29889748 E78.5 On ASAOn atorvastat in 40mg dailyMore diet and exercise is neededDecl ined any new meds for the elevated TG 11/19/2024 Type 2 jerod betes mellitus without complication 322984397 E11.9 On farxiga 10mg dailyOn lisinopril 2.5mg dailyOn metformin 1000mg bidOn Ozempic 2mg weekly, does well with this, no MEN2/MCT or pancreatic or parathyroi d complaints , advised to hydrate and take his supplement sOn stiven 40U dailyGet labs Coronary arteriosclerosis [id number] I25.10 Repeat HR after rest and 15 minutes 84/min 04/13/2024 On ASAOn atorvastat in 40mg dailyOn lisinopril 2.5mg dailyOn metoprolol ER 50mg daily Needs to see cardiology , last OV 08/03/2023 , f/u in [address] Paulo Jackson 02/11/2024 , f/u in 6 months Screening for malignant neoplasm of colon 324350892 Z12.11 Ex-cigarette smoker 0850 [id number] Z87.891 Quit in 668436+ year historyGet LDCT done Pain of ri ght shoulder joint [id number] M25.511 Not much pain now, was lifting a pool vaccum and felt the pain and there is now a swelling? lipoma Dr Dillard: 02/10/2024 , f/u PRN Health Concerns Section Related Observation LastModified by Organization Detai ls LastModified Time None Recorded Concern Status LastModified by Organization Details LastModified Time None Recorded Advance Directives Directive N: Payers Insurance Date Sequence Insurance Name Policy Number Policy Heart Covered Member ID Heart Member ID Guarantor Name 12/18/2024 1 [facility] ([facility] [id number] Tono Calderon [id number] Tono Calderon Notes Date Note Type Note Provider Name and Address Organization Details Recorded Time 04/15/2024 text/html Pt RTC for c/o painful thick mycotic nails geraldo. Improvement noted since using the Diflucan q/ wk. Prox nail areas are clearing. Pt is satisfied w/ the progress of the tx. Refilled RX for Diflucan. Efrain Pickens DPM [address], [facility] [address], [place], [address], [place] - [facility] 04/17/2024 11:00:49 04/27/2024 text/html OV 10/17/2023:He re to establish care Present history:HTNDMIICAD s/p CABGC-scope 11/03/2014 Past hx:Ex smokerCTS s/p surgery Here to discuss above and get labs OV 01/27/2024: Here for his f/u apt, he feels well todayOV 04/13/2024: Here for his routine apt, he is doing well today, has noted a R earache, no N/V or dizziness, no d/c from the ear Eugenie Ortiz MD [address], [address], [place], [address], [employer] 04/27/2024 17:40:47 08/11/2024 text/html Pt RTC for routi ne NIDDM of thick, dystrophic, incurvated nails. geraldo Pickens, DPM [address], [address], [place], [address], [employer] [facility] [employer] [facility] 08/13/2024 08:42:26 08/20/2024 text/html OV 10/17/2023:He re to establish care Present history:HTNDMIICAD s/p CABGC-scope 11/03/2014 Past hx:Ex smokerCTS s/p surgery Here to discuss above and get labs OV 01/27/2024: Here for his f/u apt, he feels well today OV 04/13/2024: Here for his routine apt, he is doing well today, has noted a R earache, no N/V or dizziness, no d/c from the ear OV 08/20/2024: Here for his f/u apt, he is doing well, he did do the labs on 08/17/2024 Eugenie Ortiz MD [address], [address], [place], [address], [employer] 08/20/2024 09:44:10 11/19/2024 text/html OV 10/17/2023:He re to establish care Present history:HTNDMIICAD s/p CABGC-scope 11/03/2014 Past hx:Ex smokerCTS s/p surgery Here to discuss above and get labs OV 01/27/2024: Here for his f/u apt, he feels well today OV 04/13/2024: Here for his routine apt, he is doing well today, has noted a R earache, no N/V or dizziness, no d/c from the ear OV 08/20/2024: Here for his f/u apt, he is doing well, he did do the labs on 08/17/2024 OV 11/19/2024: Here for his f/u apt, he feels well today, he did do the labs, states that he has been not complaint with his diet and understands why his TG and 'sugars' are 'up' Eugenie Ortiz MD [address], [facility] [address], [place], [address], [place] [facility] 11/19/2024 10:25:27
[2025-02-10 11:18] LABS: Hematocrit 47.1 % (42.0-52.0); Hemoglobin 15.3 g/dL (14.0-18.0); Immature Granulocyte Percent A 0.5 % (0-0.5); Lymphocytes Absolute Auto 1.53 K/mm3 (0.9-3.2); Mean Corpuscular HGB Conc 32.5 g/dl (32-36); Mean Corpuscular Hemoglobin 27.4 pg (26-34); Mean Corpuscular Volume 84.4 fl (80-100); Nucleated Red Blood Cells Absolute Auto 0.000 K/mm3 (0.0-0.012); Nucleated Red Blood Cells Perc 0.0 % (0.0-0.2); Platelet Count Result 239 k/mm3 (150-375); Red Blood Count 5.58 M/mm3 (4.6-6.20); White Blood Count 5.7 K/mm3 (4.5-10.0)
[2025-02-10 11:34] LABS: Alanine Aminotransferase 53 U/L (6-50); Albumin Level 4.3 g/dL (3.5-5.1); Alkaline Phosphatase 55 U/L (38-126); Anion Gap 9 mmol/L (4-12); Aspartate Amino Transferase 37 U/L (17-59); Bilirubin,Total 0.5 mg/dL (0.2-1.3); Blood Urea Nitrogen 16 mg/dL (9-20); Calcium 9.7 mg/dL (8.4-10.2); Carbon Dioxide 24 mmol/L (22-30); Chloride 106 mmol/L (98-107); Cholesterol 127 mg/dL (0-200); Estimated Glomerular Filt Rate > 60; Glucose 100 mg/dL (65-110); HDL Direct 42 mg/dL; Potassium 4.6 mmol/L (3.4-5.0); Sodium 139 mmol/L (137-145); Total Protein 7.3 g/dL (6.3-8.2); Triglycerides 68 mg/dL (<150)
[2025-02-10 11:58] LABS: MALB Creatinine Ratio 7.6 mg/g (0-30)
[2025-02-10 12:16] LABS: Thyroid Stimulating Hormone Reflex 1.580 uIU/mL (0.465-4.68)
[2025-02-10 12:39] LABS: Hemoglobin A1C 6.5 % (<5.7)
== END 2025-02-10 10:00 | disposition home or self-care (01) ==
PROVIDERS: PCP Internal Medicine; Visit Provider Internal Medicine
DX: E78.5 Hyperlipidemia, unspecified (principal); E11.9 Type 2 diabetes mellitus without complications
CPT/HCPCS: 36415; 80053; 80061; 82043; 83036; 84443; 85025